=== PATIENT | male | born 1975 | race Caucasian/White ===

== ENCOUNTER 2017-02-15 17:24 | Inpatient (IN) | payer OTHER ==
[2017-02-15 18:29] LABS: BASO # 0.2 K/uL (0.0-0.2); BASO % 1.1 % (0.0-2.0); EOS # 0.2 K/uL (0.0-0.7); EOS % 1.6 % (0.0-4.0); HEMOGLOBIN 13.2 g/dL (12.0-18.0); LYMPH # 1.8 K/uL (1.0-4.3); LYMPH % 13.6 % (20.0-40.0); MEAN CELL VOLUME 86.5 fL (80.0-94.0); MEAN CORPUSCULAR HEMOGLOBIN 27.7 pg (27.0-31.0); MEAN PLATELET VOLUME 8.1 fL (7.2-11.7); MONO # 0.9 K/uL (0.0-0.8); MONO % 6.6 % (0.0-10.0); NEUT # 10.3 K/uL (1.8-7.0); NEUT % 77.1 % (50.0-75.0); RBC 4.78 Mil/uL (4.40-5.90); RED CELL DISTRIBUTION WIDTH 14.5 % (11.5-14.5)
[2017-02-15 18:33] LABS: WHITE BLOOD COUNT 13.4 K/uL (4.8-10.8)
[2017-02-15 18:38] LABS: PROTHROMBIN TIME 10.6 SECONDS (9.7-12.2)
--- NOTE | 2017-02-15 18:38 | RAD ---
PROCEDURE: CHEST RADIOGRAPH, 1 VIEW HISTORY: SOB COMPARISON: None available. FINDINGS: LUNGS: Bibasilar ill-defined opacities. PLEURA: Small bilateral pleural effusion. CARDIOVASCULAR: Grossly normal heart size. Congestive change noted. OSSEOUS STRUCTURES: No significant abnormalities. VISUALIZED UPPER ABDOMEN: Normal. OTHER FINDINGS: None. IMPRESSION: Bibasilar opacities with small pleural effusions and congestive change. Possible pulmonary edema/congestive heart failure.
[2017-02-15 18:48] LABS: ALBUMIN 2.9 g/dL (3.5-5.0)
[2017-02-15 18:51] LABS: ALB/GLOB RATIO 0.7 (1.0-2.1); CALCIUM 7.8 mg/dl (8.6-10.4)
[2017-02-15 19:39] LABS: TROPONIN I 0.424 ng/mL (0.00-0.120)
--- NOTE | 2017-02-15 20:56 | C.PDOC ---
Time Seen by Provider: 02/15/17 17:58 Chief Complaint (Nursing): Shortness Of Breath History Per: Patient Onset/Duration Of Symptoms: Days (about 2 weeks) Current Symptoms Are (Timing): Still Present Exacerbating Factor(s): Exertion, Laying Flat Severity: Moderate Associated Symptoms: Ankle/Leg Swelling Additional History Per: Prior Records Past Medical History Reviewed: Historical Data, Nursing Documentation, Vital Signs Vital Signs: Last Vital Signs Temp 98.9 F 02/15/17 17:35 Pulse 87 02/15/17 19:32 Resp 18 02/15/17 19:32 BP 138/88 02/15/17 19:32 Pulse Ox 97 02/15/17 19:32 - Medical History PMH: Diabetes, HTN Family History: States: Unknown Family Hx - Social History Hx Tobacco Use: Yes Hx Alcohol Use: No Hx Substance Use: No - Immunization History Hx Tetanus Toxoid Vaccination: No Hx Influenza Vaccination: No Hx Pneumococcal Vaccination: No Review Of Systems Except As Marked, All Systems Reviewed And Found Negative. Constitutional: Negative for: Fever Cardiovascular: Positive for: Orthopnea, Edema. Negative for: Chest Pain Respiratory: Positive for: Shortness of Breath, SOB with Excertion. Negative for: Hemoptysis Gastrointestinal: Negative for: Vomiting, Abdominal Pain Musculoskeletal: Negative for: Neck Pain Neurological: Negative for: Weakness, Numbness, Seizures, Altered Mental Status Physical Exam - Physical Exam Appears: No Acute Distress, Chronically Ill Skin: Normal Color, Warm, Dry Head: Atraumatic, Normacephalic Eye(s): bilateral: PERRL, EOMI Neck: Normal ROM, Supple Cardiovascular: Rhythm Regular Respiratory: No Accessory Muscle Use, Rales Gastrointestinal/Abdominal: Soft, No Tenderness Back: No CVA Tenderness Extremity: Normal ROM, Pedal Edema Neurological/Psych: Oriented x3, Normal Motor, Normal Sensation ED Course And Treatment - Laboratory Results Result Diagrams: 02/15/17 18:21 02/15/17 18:21 Lab Interpretation: Abnormal Interpretation Of Abnormal: Renal failure. Elevated BNP. Positive troponin. ECG: Interpreted By Me, Viewed By Me ECG Rhythm: Sinus Rhythm, Nonspecific Changes ECG Interpretation: Abnormal Interpretation Of ECG: Q waves in [place]-septal leads. Rate From EC O2 Sat by Pulse Oximetry: 97 Pulse Ox Interpretation: Normal - Radiology CXR: Viewed By Me, Read By Radiologist CXR Interpretation: Yes: Other (CHF) - Physician Consult Information Physician Contacted: Sharon Byrnes (Cardio) Outcome Of Conversation: He states pt can be admitted on telemetry floor and he will consult. Progress - Interventions Interventions:: Observation, Oxygen - Medications Administered Oral: Aspirin Intravenous: Diuretic - Data Reviewed Data Reviewed: Lab, Diagnostic imaging, EKG, Old records - Patient Status Patient status: Partially improved - Critical Care Citical Care: Excluding Proc Time Critical Care Time: 45 minutes - Continuity of Care Discussed patient case with:: Patient, ED Nurse, On-call PMD-pt unassigned Discussed pt. case with makeup sales consultant/specialty: Cardiology - Patient Plan Patient Plan: Admission, Telemetry Disposition Discussed With Dr.: Molina Bronson Comment: He accepted pt on hospitalist service. Doctor Will See Patient In The: Hospital Counseled Patient/Family Regarding: Studies Performed, Diagnosis - Disposition Disposition: HOSPITALIZED Disposition Time: 20:57 Condition: SERIOUS - Clinical Impression Clinical Impression: New onset of congestive heart failure, Worsening renal function
[2017-02-15] MEDS ORDERED: Potassium Chloride 20 mEq ER Tab PO STA (22:18)
--- NOTE | 2017-02-15 22:30 | CP.PCM.HP ---
<Abbey Joyce - Last Filed: 02/16/17 06:58> History of Present Illness - History of Present Illness History of Present Illness: CC - "Shortness of breath" HPI - 41 year old male with a past medical history of DM and HTN presented with shortness of breath for 2 weeks. He stated that he gets very short of breath with exertion. He also has shortness of breath when he sleeps which wakes him up and night and then he begins to cough. It is difficult for him to lie flat without being SOB. He states that he has also noticed that his legs have been swollen for the last month. He denied urinary retention or hematuria. he denied urinary complaints. He denied f/c, headache, N/V, chest pain, abd pain, diarrhea /constipation. Denies recent travel or sick contacts. PMHx - DM, HTN Meds - amlodipine 5mg PO daily, Lisinopril/HCTZ 20/25 mg PO daily, Levemir 25 U SC HS, Novolog 20 U SC TID Allergies - NKDA Fam Hx - mother has diabetes Surg - denies Social - social alcohol, smokes 6-10 cigarettes a day for many years stopped 1 year ago, denied drug use. 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 absent: Chest Pain, Chest Pain at Rest, Palpitations , Syncope - Respiratory Respiratory: Cough (nonproductive), Dyspnea, Dyspnea on Exertion - Gastrointestinal Gastrointestinal: Abdominal Pain. absent: Cramping, Diarrhea, Nausea, Vomiting - Genitourinary Genitourinary: absent: Change in Urinary Stream, Difficulty Urinating - Musculoskeletal Musculoskeletal: absent: Numbness, Tingling - Neurological Neurological: absent: Tingling, Weakness Past Patient History - Infectious Disease Hx of Infectious Diseases: None - Past Social History Smoking Status: Light Smoker < 10 Cigarettes Daily - CARDIAC Hx Hypertension: Yes - ENDOCRINE/METABOLIC Hx Diabetes Mellitus Type 2: Yes - PSYCHIATRIC Hx Substance Use: No - SURGICAL HISTORY Hx Surgeries: No - ANESTHESIA Hx Anesthesia: No Meds Allergies/Adverse Reactions: Allergies Allergy/AdvReac Type Severity Reaction Status Date / Time No Known Allergies Allergy Verified 01/08/16 10:50 Physical Exam - Constitutional Appears: Non-toxic, No Acute Distress - Head Exam Head Exam: ATRAUMATIC, NORMAL INSPECTION - Eye Exam Eye Exam: EOMI, Normal appearance, PERRL Pupil Exam: NORMAL ACCOMODATION - ENT Exam ENT Exam: Mucous Membranes Dry - Respiratory Exam Respiratory Exam: Rales. absent: Accessory Muscle Use, Clear to Auscultation Bilateral, Respiratory Distress, NORMAL BREATHING PATTERN - Cardiovascular Exam Cardiovascular Exam: REGULAR RHYTHM, +S1, +S2 - GI/Abdominal Exam GI & Abdominal Exam: Normal Bowel Sounds, Soft. absent: Distended, Firm, Guarding, Tenderness - Extremities Exam Extremities exam: Positive for: pedal edema. Negative for: calf tenderness Additional comments: 2+ edema legs bilaterally - Back Exam Back exam: NORMAL INSPECTION. absent: CVA tenderness (L), CVA tenderness (R), paraspinal tenderness - Neurological Exam Neurological exam: Alert, Normal Gait, Oriented x3 - Psychiatric Exam Psychiatric exam: Normal Affect, Normal Mood - Skin Skin Exam: Dry, Intact, Normal Color, Warm Results - Vital Signs Recent Vital Signs: Last Vital Signs Temp 98.2 F 02/15/17 21:34 Pulse 88 02/15/17 21:34 Resp 20 02/15/17 21:34 BP 138/88 02/15/17 19:32 Pulse Ox 98 02/15/17 21:34 - Labs Result Diagrams: 02/15/17 18:21 02/15/17 18:21 Assessment & Plan - Assessment and Plan (Free Text) Assessment: Pulmonary edema Lasix 40 mg IV Q12 O2 via NC Xray - venous congestion cardiomegaly Dsypnea Likely CHF (new onset) f/u Echo Aspirin 81 mg PO daily Metoprolol 25 mg PO daily Imdur 30mg PO daily Doxazosin 4mg PO daily Lasix 20mg IVP Q12 consider statin use Avoid BERENICE/ARB dur to MICAELA for now Dr. Byrnes, cardiology consulted, help appreciated daily weights/monitor ins/outs EKG - Q waves [place]-septal leads Trop #1 0.4240, Trop #2 0.4220 BNP [id number] f/u am labs Acute Kidney Injury BUN/CR 36/5.2 (cr was 1.7 1 year ago) f/u renal US f/u urine lytes Dr. Lincoln, nephrology consulted, help appreciated DM Lantus 25 U SC HS Novolin 8 U SC ACTID ISS Acuuchecks f/u HbA1c Hypokalemia K 3.5 f/u Mg Prophylactic Measures Heparin 5,000 U SC Q8 No SCDS due to leg edema Protonix 40mg PO daily <[email or web address] P - Last Filed: 02/19/17 23:02> Results - Vital Signs Recent Vital Signs: Last Vital Signs Temp 97.6 F 02/19/17 08:37 Pulse 93 H 02/19/17 08:37 Resp 20 02/19/17 08:37 BP 151/94 H 02/19/17 09:53 Pulse Ox 94 L 02/19/17 08:37 - Labs Result Diagrams: 02/19/17 07:21 02/19/17 07:21 Labs: Laboratory Results - last 24 hr 02/19/17 02/19/17 02/19/17 06:05 07:21 07:21 WBC 7.4 RBC 4.28 L Hgb 12.0 Hct 37.3 MCV 87.0 MCH 28.0 MCHC 32.2 L RDW 15.1 H Plt Count 259 MPV 8.2 Neut % (Auto) 63.8 Lymph % (Auto) 24.1 [place] % (Auto) 8.4 Eos % (Auto) 2.7 Baso % (Auto) 1.0 Neut # 4.7 Lymph # 1.8 [place] # 0.6 Eos # 0.2 Baso # 0.1 PT INR APTT Sodium 136 Potassium 3.8 Chloride 106 Carbon Dioxide 21 L Anion Gap 13 BUN 37 H Creatinine 5.9 H Est GFR ( Amer) 13 Est GFR (Non-Af Amer) 11 POC Glucose (mg/dL) 155 H Random Glucose 142 H Calcium 7.8 L Phosphorus 5.7 H Magnesium 2.2 Total Bilirubin 0.3 AST 20 ALT 17 L Alkaline Phosphatase 88 Total Protein 6.0 L Albumin 2.4 L Globulin 3.6 Albumin/Globulin Ratio 0.7 L 02/19/17 02/19/17 02/19/17 07:21 11:47 16:24 WBC RBC Hgb Hct MCV MCH MCHC RDW Plt Count MPV Neut % (Auto) Lymph % (Auto) [place] % (Auto) Eos % (Auto) Baso % (Auto) Neut # Lymph # [place] # Eos # Baso # PT 10.4 INR 0.9 APTT 67 H Sodium Potassium Chloride Carbon Dioxide Anion Gap BUN Creatinine Est GFR ( Amer) Est GFR (Non-Af Amer) POC Glucose (mg/dL) 188 H 132 H Random Glucose Calcium Phosphorus Magnesium Total Bilirubin AST ALT Alkaline Phosphatase Total Protein Albumin Globulin Albumin/Globulin Ratio 02/19/17 21:15 WBC RBC Hgb Hct MCV MCH MCHC RDW Plt Count MPV Neut % (Auto) Lymph % (Auto) [place] % (Auto) Eos % (Auto) Baso % (Auto) Neut # Lymph # [place] # Eos # Baso # PT INR APTT Sodium Potassium Chloride Carbon Dioxide Anion Gap BUN Creatinine Est GFR ( Amer) Est GFR (Non-Af Amer) POC Glucose (mg/dL) 177 H Random Glucose Calcium Phosphorus Magnesium Total Bilirubin AST ALT Alkaline Phosphatase Total Protein Albumin Globulin Albumin/Globulin Ratio Attending/Attestation - Attestation I have personally seen and examined this patient.: Yes I have fully participated in the care of the patient.: Yes I have reviewed all pertinent clinical information: Yes
[2017-02-15] MEDS ORDERED: Metoprolol Succinate 25 mg XL Tab PO STA (23:10)
[2017-02-15] MEDS: (Lantus) Insulin Glargine, Recombinant SC SCH (23:11)
[2017-02-15] MEDS: (Novolin R) Insulin Human Regular 100 units/ml vial SC SCH (23:11)
[2017-02-15] MEDS ORDERED: Potassium Chloride 20 mEq ER Tab PO ONE (23:18)
[2017-02-16 00:51] LABS: CK-MB 3.85 ng/mL (0.0-3.38)
[2017-02-16] MEDS: (Novolin R) Insulin Human Regular 100 units/ml vial SC SCH ×7 (07:19→21:32)
[2017-02-16 07:23] LABS: BASO # 0.2 K/uL (0.0-0.2); BASO % 1.9 % (0.0-2.0); EOS # 0.3 K/uL (0.0-0.7); EOS % 3.4 % (0.0-4.0); LYMPH # 2.6 K/uL (1.0-4.3); LYMPH % 31.4 % (20.0-40.0); MEAN CELL VOLUME 87.1 fL (80.0-94.0); MEAN CORPUSCULAR HEMOGLOBIN 27.9 pg (27.0-31.0); MEAN CORPUSCULAR HGB CONC 32.1 g/dL (33.0-37.0); MEAN PLATELET VOLUME 8.1 fL (7.2-11.7); MONO # 0.7 K/uL (0.0-0.8); MONO % 8.2 % (0.0-10.0); NEUT # 4.5 K/uL (1.8-7.0); NEUT % 55.1 % (50.0-75.0); RBC 4.3 Mil/uL (4.40-5.90); RED CELL DISTRIBUTION WIDTH 14.7 % (11.5-14.5); WHITE BLOOD COUNT 8.2 K/uL (4.8-10.8)
[2017-02-16 07:40] LABS: ALBUMIN 2.3 g/dL (3.5-5.0)
[2017-02-16 07:43] LABS: ALB/GLOB RATIO 0.7 (1.0-2.1)
[2017-02-16 07:44] LABS: CALCIUM 8.1 mg/dl (8.6-10.4); MAGNESIUM 2.3 mg/dL (1.6-2.3)
[2017-02-16 07:52] LABS: CK-MB 2.87 ng/mL (0.0-3.38)
[2017-02-16] MEDS ORDERED: Pantoprazole 40 mg EC Tab PO SCH (10:00)
--- NOTE | 2017-02-16 10:02 | CP.PCM.CON ---
<Arturo Maloney - Last Filed: 02/16/17 09:52> History of Present Illness - History of Present Illness History of Present Illness: Consult note for Dr. Byrnes Reason for Consult: New onset CHF, Pulmonary edema 41 y/o M with PMH of HTN and DM presents to the ED initially on 02/15/17 for shortness of breath for 2 weeks. Pt states he gradually became short of breath over the period of 1 month, but it became very noticeable 2 weeks ago. Pt states it is worse with exertion and while laying flat. Pt does note coughing, mainly at night. In addition to having shortness of breath, he notes he has had increased swelling of his legs over the past month. Pt states he has never had any symptoms like these before. Currently, pt denies CP, N/V/D, fevers, chills, dizziness, syncope. PMH: DM, HTN FMH: DM Social: Admits to occasional alcohol use. Former smoker, quit 7 months ago. Denies illicit drug use Meds: See MAR Allergies: NKDA Review of Systems - Constitutional Constitutional: Fatigue, Weight Gain. absent: Fever - EENT Eyes: absent: Blurred Vision, Change in Vision - Cardiovascular Cardiovascular: absent: Chest Pain, Irregular Heart Rhythm - Respiratory Respiratory: Cough, Dyspnea - Gastrointestinal Gastrointestinal: absent: Abdominal Pain, Diarrhea, Vomiting - Genitourinary Genitourinary: absent: Dysuria, Hematuria - Integumentary Integumentary: absent: New Lesions, Rash - Neurological Neurological: absent: Dizziness, Syncope, Tingling Past Patient History - Infectious Disease Hx of Infectious Diseases: None - Past Social History Smoking Status: Light Smoker < 10 Cigarettes Daily - CARDIAC Hx Hypertension: Yes - ENDOCRINE/METABOLIC Hx Diabetes Mellitus Type 2: Yes - MUSCULOSKELETAL/RHEUMATOLOGICAL Hx Falls: No - PSYCHIATRIC Hx Substance Use: No - SURGICAL HISTORY Hx Surgeries: No - ANESTHESIA Hx Anesthesia: No Meds Allergies/Adverse Reactions: Allergies Allergy/AdvReac Type Severity Reaction Status Date / Time No Known Allergies Allergy Verified 01/08/16 10:50 - Medications Medications: Current Medications Aspirin (Aspirin Chewable) 81 mg PO DAILY [facility] Doxazosin Mesylate (Cardura) 4 mg PO DAILY [facility] Famotidine (Pepcid) 20 mg PO DAILY [facility] Furosemide (Lasix) 40 mg IVP Q12H [facility] Last Admin: 02/16/17 07:08 Dose: 40 mg Heparin Sodium (Porcine) (Heparin) 5,000 units SC Q8 [facility] Last Admin: 02/16/17 07:07 Dose: Not Given Insulin Glargine (Lantus) 25 unit SC HS [facility] Last Admin: 02/15/17 23:11 Dose: Not Given Insulin Human Regular (Novolin R) 0 unit SC ACHS [facility] PRN Reason: Protocol Last Admin: 02/16/17 07:19 Dose: Not Given Insulin Human Regular (Novolin R) 8 unit SC ACTID [facility] Last Admin: 02/16/17 07:21 Dose: Not Given Isosorbide Mononitrate (Imdur) 30 mg PO DAILY [facility] Metoprolol Succinate (Toprol Xl) 25 mg PO DAILY [facility] Pneumococcal Polyvalent Vaccine (Pneumovax 23 Vaccine) 0.5 ml IM .ONCE ONE Stop: 02/17/17 10:01 Physical Exam - Constitutional Appears: Non-toxic, No Acute Distress - Head Exam Head Exam: ATRAUMATIC, NORMAL INSPECTION, NORMOCEPHALIC - ENT Exam ENT Exam: Mucous Membranes Moist - Respiratory Exam Respiratory Exam: Rales, NORMAL BREATHING PATTERN. absent: Rhonchi, Wheezes - Cardiovascular Exam Cardiovascular Exam: RRR, +S1, +S2 - GI/Abdominal Exam GI & Abdominal Exam: Normal Bowel Sounds, Soft. absent: Tenderness - Extremities Exam Extremities exam: Positive for: pedal edema (+1 b/l). Negative for: calf tenderness - Neurological Exam Neurological exam: Alert, Oriented x3 - Skin Skin Exam: Intact, Normal Color, Warm Results - Vital Signs Recent Vital Signs: Last Vital Signs Temp 97.6 F 02/16/17 07:40 Pulse 86 02/16/17 07:40 Resp 20 02/16/17 07:40 BP 168/89 H 02/16/17 07:40 Pulse Ox 94 L 02/16/17 07:40 - Labs Result Diagrams: 02/16/17 07:09 02/16/17 07:09 Labs: Laboratory Results - last 24 hr 02/15/17 02/16/17 02/16/17 23:07 00:11 06:50 WBC RBC Hgb Hct MCV MCH MCHC RDW Plt Count MPV Neut % (Auto) Lymph % (Auto) [place] % (Auto) Eos % (Auto) Baso % (Auto) Neut # Lymph # [place] # Eos # Baso # Sodium Potassium Chloride Carbon Dioxide Anion Gap BUN Creatinine Est GFR ( Amer) Est GFR (Non-Af Amer) POC Glucose (mg/dL) 99 130 H Random Glucose Calcium Phosphorus Magnesium Total Bilirubin AST ALT Alkaline Phosphatase Total Creatine Kinase 121 CK-MB (Mass) 3.85 H Troponin I, Quant 0.4220 H* Total Protein Albumin Globulin Albumin/Globulin Ratio 02/16/17 02/16/17 07:09 07:09 WBC 8.2 RBC 4.30 L Hgb 12.0 Hct 37.4 MCV 87.1 MCH 27.9 MCHC 32.1 L RDW 14.7 H Plt Count 292 MPV 8.1 Neut % (Auto) 55.1 Lymph % (Auto) 31.4 [place] % (Auto) 8.2 Eos % (Auto) 3.4 Baso % (Auto) 1.9 Neut # 4.5 Lymph # 2.6 [place] # 0.7 Eos # 0.3 Baso # 0.2 Sodium 138 Potassium 3.7 Chloride 111 H Carbon Dioxide 21 L Anion Gap 10 BUN 34 H Creatinine 5.4 H Est GFR ( Amer) 14 Est GFR (Non-Af Amer) 12 POC Glucose (mg/dL) Random Glucose 139 H Calcium 8.1 L Phosphorus 5.8 H Magnesium 2.3 Total Bilirubin 0.5 AST 12 L D ALT 9 L D Alkaline Phosphatase 81 Total Creatine Kinase 96 CK-MB (Mass) 2.87 Troponin I, Quant 0.3050 H* Total Protein 5.8 L Albumin 2.3 L D Globulin 3.5 Albumin/Globulin Ratio 0.7 L Assessment & Plan (1) NSTEMI (non-ST elevated myocardial infarction) Assessment and Plan: Troponins elevated x3, but downtrending New EKG changes with Q waves in lateral leads, possible old [place] Will start Heparin drip and plavix Pt will likely need cardiac catheterization Awaiting echocardiogram Status: Acute <Sharon Byrnes - Last Filed: 02/17/17 07:53> Meds - Medications Medications: Current Medications Aspirin (Aspirin Chewable) 81 mg PO DAILY [facility] Last Admin: 02/16/17 09:30 Dose: 81 mg Doxazosin Mesylate (Cardura) 4 mg PO DAILY [facility] Last Admin: 02/16/17 10:49 Dose: 4 mg Famotidine (Pepcid) 20 mg PO DAILY [facility] Last Admin: 02/16/17 10:49 Dose: 20 mg Furosemide (Lasix) 40 mg IVP Q12H [facility] Last Admin: 02/17/17 05:20 Dose: 40 mg Hydralazine HCl (Apresoline) 10 mg IVP Q6H PRN PRN Reason: Systolic Blood Pressure Heparin Sodium/Sodium Chloride (Heparin 45726 Units/250ml 1/2 Normal Saline) 25 ,000 units in 250 mls @ 11.975 mls/hr IV .[id number] PRN; Protocol; 12 UNITS/KG/HR PRN Reason: PROTOCOL Last Admin: 02/16/17 12:45 Dose: 12 units/kg/hr, 11.975 mls/hr Insulin Glargine (Lantus) 25 unit SC HS [facility] Last Admin: 02/16/17 22:06 Dose: 25 u Insulin Human Regular (Novolin R) 0 unit SC ACHS [facility] PRN Reason: Protocol Last Admin: 02/17/17 07:38 Dose: Not Given Insulin Human Regular (Novolin R) 8 unit SC ACTID [facility] Last Admin: 02/17/17 07:39 Dose: Not Given Isosorbide Mononitrate (Imdur) 30 mg PO DAILY [facility] Last Admin: 02/16/17 10:49 Dose: 30 mg Metoprolol Succinate (Toprol Xl) 25 mg PO DAILY [facility] Last Admin: 02/16/17 10:49 Dose: 25 mg Pneumococcal Polyvalent Vaccine (Pneumovax 23 Vaccine) 0.5 ml IM .ONCE ONE Stop: 02/17/17 10:01 Results - Vital Signs Recent Vital Signs: Last Vital Signs Temp 98 F 02/17/17 04:55 Pulse 84 02/17/17 04:55 Resp 20 02/17/17 04:55 BP 170/89 H 02/17/17 06:00 Pulse Ox 98 02/16/17 23:45 - Labs Result Diagrams: 02/16/17 07:09 02/16/17 07:09 Labs: Laboratory Results - last 24 hr 02/16/17 02/16/17 02/16/17 07:09 12:19 13:08 APTT POC Glucose (mg/dL) 241 H CK-MB (Mass) 2.87 Troponin I 0.2170 H* Troponin I, Quant 0.3050 H* Urine Color Urine Clarity Urine pH Ur Specific [place] Urine Protein Urine Glucose (UA) Urine Ketones Urine Blood Urine Nitrate Urine Bilirubin Urine Urobilinogen Ur Leukocyte Esterase Urine WBC (Auto) Urine RBC (Auto) Ur Squamous Epith Cells Urine Osmolality Ur Random Sodium 02/16/17 02/16/17 02/16/17 16:27 19:37 19:37 APTT POC Glucose (mg/dL) 141 H CK-MB (Mass) Troponin I Troponin I, Quant Urine Color Straw Urine Clarity Clear Urine pH 5.0 Ur Specific [place] 1.009 Urine Protein 2+ H Urine Glucose (UA) 3+ H Urine Ketones Negative Urine Blood Negative Urine Nitrate Negative Urine Bilirubin Negative Urine Urobilinogen Normal Ur Leukocyte Esterase Neg Urine WBC (Auto) 2 Urine RBC (Auto) 1 Ur Squamous Epith Cells < 1 Urine Osmolality 330 Ur Random Sodium 92 02/16/17 02/16/17 20:59 21:26 APTT 61 H D POC Glucose (mg/dL) 107 CK-MB (Mass) Troponin I Troponin I, Quant Urine Color Urine Clarity Urine pH Ur Specific [place] Urine Protein Urine Glucose (UA) Urine Ketones Urine Blood Urine Nitrate Urine Bilirubin Urine Urobilinogen Ur Leukocyte Esterase Urine WBC (Auto) Urine RBC (Auto) Ur Squamous Epith Cells Urine Osmolality Ur Random Sodium Attending/Attestation - Attestation I have personally seen and examined this patient.: Yes I have fully participated in the care of the patient.: Yes I have reviewed all pertinent clinical information: Yes Notes (Text): 02/17/17 07:52 Pt starting dialysis d/w renal will need cardiac catheterization will time cases and d/w interventional cardiology
[2017-02-16] MEDS: Metoprolol Succinate 25 mg XL Tab PO SCH (10:49)
[2017-02-16] MEDS: Heparin25000 units/250ml 1/2NS 25,000 UNITS/250 ML BAG IV PRN (12:45)
--- NOTE | 2017-02-16 13:38 | CARD ---
APPROVED REPORT EKG Measurement Heart [id number] <Conclusion> Normal sinus rhythm Cannot rule out Inferior infarct, age undetermined Anterolateral infarct, age undetermined Prolonged QT Abnormal ECG
--- NOTE | 2017-02-16 13:38 | CARD ---
APPROVED REPORT EKG Measurement Heart [id number] <Conclusion> Normal sinus rhythm Possible Left atrial enlargement Anterolateral infarct, age undetermined Prolonged QT Abnormal ECG
--- NOTE | 2017-02-16 14:03 | US ---
PROCEDURE: Ultrasound of the Kidneys HISTORY: MICAELA COMPARISON: None available. TECHNIQUE: Sonogram of the kidneys. FINDINGS: RIGHT KIDNEY: Measures: 11.1 cm. Normal in size, contour and echogenicity. No stone, solid mass lesion or hydronephrosis visualized. LEFT KIDNEY: Measures: 10.0 cm. Normal in size, contour and echogenicity. No stone, solid mass lesion or hydronephrosis visualized. OTHER FINDINGS: None. IMPRESSION: Unremarkable renal sonogram.
--- NOTE | 2017-02-16 16:16 | CP.PCM.CON ---
History of Present Illness - History of Present Illness History of Present Illness: HPI - 41 year old male with a past medical history of DM and HTN presented with shortness of breath for 2 weeks. He stated that he gets very short of breath with exertion. He also has shortness of breath when he sleeps which wakes him up and night and then he begins to cough. It is difficult for him to lie flat without being SOB. He states that he has also noticed that his legs have been swollen for the last month. He denied urinary retention or hematuria. he denied urinary complaints. He denied f/c, headache, N/V, chest pain, abd pain, diarrhea /constipation. Denies recent travel or sick contacts. PMHx - DM, HTN Meds - amlodipine 5mg PO daily, Lisinopril/HCTZ 20/25 mg PO daily, Levemir 25 U SC HS, Novolog 20 U SC TID Allergies - NKDA Fam Hx - mother has diabetes Surg - denies Social - social alcohol, smokes 6-10 cigarettes a day for many years stopped 1 year ago, denied drug use. 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 [employer] PMD - Jeff - does not follow up often No prior h/o CKD No known diabetic retinopathy Review of Systems - Constitutional Constitutional: Weight Gain, Weakness - Cardiovascular Cardiovascular: Dyspnea on Exertion, Pedal Edema - Respiratory Respiratory: Cough, Dyspnea on Exertion - Gastrointestinal Gastrointestinal: Nausea - Genitourinary Genitourinary: Dysuria - Musculoskeletal Musculoskeletal: Muscle Weakness, Myalgias - Neurological Neurological: Weakness Past Patient History - Infectious Disease Hx of Infectious Diseases: None - Past Social History Smoking Status: Light Smoker < 10 Cigarettes Daily Chewing Tobacco Use: No Cigar Use: No Alcohol: Occasional - CARDIAC Hx Hypertension: Yes - ENDOCRINE/METABOLIC Hx Diabetes Mellitus Type 2: Yes - MUSCULOSKELETAL/RHEUMATOLOGICAL Hx Falls: No - PSYCHIATRIC Hx Substance Use: No - SURGICAL HISTORY Hx Surgeries: No - ANESTHESIA Hx Anesthesia: No Meds Allergies/Adverse Reactions: Allergies Allergy/AdvReac Type Severity Reaction Status Date / Time No Known Allergies Allergy Verified 01/08/16 10:50 - Medications Medications: Current Medications Aspirin (Aspirin Chewable) 81 mg PO DAILY [facility] Last Admin: 02/16/17 09:30 Dose: 81 mg Doxazosin Mesylate (Cardura) 4 mg PO DAILY [facility] Last Admin: 02/16/17 10:49 Dose: 4 mg Famotidine (Pepcid) 20 mg PO DAILY [facility] Last Admin: 02/16/17 10:49 Dose: 20 mg Furosemide (Lasix) 40 mg IVP Q12H [facility] Last Admin: 02/16/17 07:08 Dose: 40 mg Hydralazine HCl (Apresoline) 10 mg IVP Q6H PRN PRN Reason: Systolic Blood Pressure Heparin Sodium/Sodium Chloride (Heparin 43460 Units/250ml 1/2 Normal Saline) 25 ,000 units in 250 mls @ 11.975 mls/hr IV .[id number] PRN; Protocol; 12 UNITS/KG/HR PRN Reason: PROTOCOL Last Admin: 02/16/17 12:45 Dose: 12 units/kg/hr, 11.975 mls/hr Insulin Glargine (Lantus) 25 unit SC HS [facility] Last Admin: 02/15/17 23:11 Dose: Not Given Insulin Human Regular (Novolin R) 0 unit SC ACHS [facility] PRN Reason: Protocol Last Admin: 02/16/17 12:26 Dose: 3 unit Insulin Human Regular (Novolin R) 8 unit SC ACTID [facility] Last Admin: 02/16/17 12:26 Dose: 8 unit Isosorbide Mononitrate (Imdur) 30 mg PO DAILY [facility] Last Admin: 02/16/17 10:49 Dose: 30 mg Metoprolol Succinate (Toprol Xl) 25 mg PO DAILY [facility] Last Admin: 02/16/17 10:49 Dose: 25 mg Pneumococcal Polyvalent Vaccine (Pneumovax 23 Vaccine) 0.5 ml IM .ONCE ONE Stop: 02/17/17 10:01 Physical Exam - Constitutional Appears: No Acute Distress, Chronically Ill - Head Exam Head Exam: ATRAUMATIC, NORMAL INSPECTION - Eye Exam Eye Exam: EOMI, Normal appearance - Neck Exam Neck exam: Positive for: Normal Inspection. Negative for: Tenderness - Respiratory Exam Respiratory Exam: Rales, NORMAL BREATHING PATTERN - Cardiovascular Exam Cardiovascular Exam: REGULAR RHYTHM, +S1 - GI/Abdominal Exam GI & Abdominal Exam: Soft. absent: Tenderness - Extremities Exam Extremities exam: Positive for: normal inspection, pedal edema - Neurological Exam Neurological exam: Alert, CN II-XII Intact - Skin Skin Exam: Dry, Warm Results - Vital Signs Recent Vital Signs: Last Vital Signs Temp 97.6 F 02/16/17 07:40 Pulse 79 02/16/17 13:52 Resp 20 02/16/17 07:40 BP 168/89 H 02/16/17 07:40 Pulse Ox 94 L 02/16/17 07:40 - Labs Result Diagrams: 02/16/17 07:09 02/16/17 07:09 Labs: Laboratory Results - last 24 hr 02/15/17 02/16/17 02/16/17 23:07 00:11 06:50 WBC RBC Hgb Hct MCV MCH MCHC RDW Plt Count MPV Neut % (Auto) Lymph % (Auto) Maury % (Auto) Eos % (Auto) Baso % (Auto) Neut # Lymph # Maury # Eos # Baso # Sodium Potassium Chloride Carbon Dioxide Anion Gap BUN Creatinine Est GFR ( Amer) Est GFR (Non-Af Amer) POC Glucose (mg/dL) 99 130 H Random Glucose Calcium Phosphorus Magnesium Total Bilirubin AST ALT Alkaline Phosphatase Total Creatine Kinase 121 CK-MB (Mass) 3.85 H Troponin I Troponin I, Quant 0.4220 H* Total Protein Albumin Globulin Albumin/Globulin Ratio 02/16/17 02/16/17 02/16/17 07:09 07:09 12:19 WBC 8.2 RBC 4.30 L Hgb 12.0 Hct 37.4 MCV 87.1 MCH 27.9 MCHC 32.1 L RDW 14.7 H Plt Count 292 MPV 8.1 Neut % (Auto) 55.1 Lymph % (Auto) 31.4 Maury % (Auto) 8.2 Eos % (Auto) 3.4 Baso % (Auto) 1.9 Neut # 4.5 Lymph # 2.6 Maury # 0.7 Eos # 0.3 Baso # 0.2 Sodium 138 Potassium 3.7 Chloride 111 H Carbon Dioxide 21 L Anion Gap 10 BUN 34 H Creatinine 5.4 H Est GFR ( Amer) 14 Est GFR (Non-Af Amer) 12 POC Glucose (mg/dL) 241 H Random Glucose 139 H Calcium 8.1 L Phosphorus 5.8 H Magnesium 2.3 Total Bilirubin 0.5 AST 12 L D ALT 9 L D Alkaline Phosphatase 81 Total Creatine Kinase 96 CK-MB (Mass) 2.87 Troponin I Troponin I, Quant 0.3050 H* Total Protein 5.8 L Albumin 2.3 L D Globulin 3.5 Albumin/Globulin Ratio 0.7 L 02/16/17 13:08 WBC RBC Hgb Hct MCV MCH MCHC RDW Plt Count MPV Neut % (Auto) Lymph % (Auto) Maury % (Auto) Eos % (Auto) Baso % (Auto) Neut # Lymph # Maury # Eos # Baso # Sodium Potassium Chloride Carbon Dioxide Anion Gap BUN Creatinine Est GFR ( Amer) Est GFR (Non-Af Amer) POC Glucose (mg/dL) Random Glucose Calcium Phosphorus Magnesium Total Bilirubin AST ALT Alkaline Phosphatase Total Creatine Kinase CK-MB (Mass) Troponin I 0.2170 H* Troponin I, Quant Total Protein Albumin Globulin Albumin/Globulin Ratio Assessment & Plan (1) New onset of congestive heart failure Status: Acute (2) MICAELA (acute kidney injury) Status: Acute (3) Type 2 diabetes mellitus with diabetic nephropathy Status: Acute (4) CKD (chronic kidney disease) stage 5, GFR less than 15 ml/min Status: Acute (5) NSTEMI (non-ST elevated myocardial infarction) Status: Acute - Assessment and Plan (Free Text) Plan: protein excretion rate IV lasix serial chemistries check pth, phos stop BERENICE I Might need COMMISSIONS COORDINATOR if not better
--- NOTE | 2017-02-16 18:51 | CP.PCM.PN ---
<Amy French - Last Filed: 02/16/17 20:37> Subjective - Date & Time of Evaluation Date of Evaluation: 02/16/17 Time of Evaluation: 09:00 - Subjective Subjective: Medicine Note (PGY 1): Dr. Bahena's service Patient was seen and examined at bedside in the AM. Patient states his shortness has improved since he arrived at the hospital. Patient states his legs are swollen. Patient denies chest pain, nausea, vomiting, diarrhea or constipation. Objective - Vital Signs/Intake and Output Vital Signs (last 24 hours): Temp Pulse Resp BP Pulse Ox 98.0 F 80 20 141/90 96 02/16/17 15:15 02/16/17 15:15 02/16/17 15:15 02/16/17 17:23 02/16/17 15:15 Intake and Output: 02/16/17 02/16/17 06:59 18:59 Intake Total 500 Balance 500 - Medications Medications: Current Medications Aspirin (Aspirin Chewable) 81 mg PO DAILY [facility] Last Admin: 02/16/17 09:30 Dose: 81 mg Doxazosin Mesylate (Cardura) 4 mg PO DAILY [facility] Last Admin: 02/16/17 10:49 Dose: 4 mg Famotidine (Pepcid) 20 mg PO DAILY [facility] Last Admin: 02/16/17 10:49 Dose: 20 mg Furosemide (Lasix) 40 mg IVP Q12H [facility] Last Admin: 02/16/17 17:23 Dose: 40 mg Hydralazine HCl (Apresoline) 10 mg IVP Q6H PRN PRN Reason: Systolic Blood Pressure Heparin Sodium/Sodium Chloride (Heparin 75495 Units/250ml 1/2 Normal Saline) 25 ,000 units in 250 mls @ 11.975 mls/hr IV .[id number] PRN; Protocol; 12 UNITS/KG/HR PRN Reason: PROTOCOL Last Admin: 02/16/17 12:45 Dose: 12 units/kg/hr, 11.975 mls/hr Insulin Glargine (Lantus) 25 unit SC HS [facility] Last Admin: 02/15/17 23:11 Dose: Not Given Insulin Human Regular (Novolin R) 0 unit SC ACHS [facility] PRN Reason: Protocol Last Admin: 02/16/17 17:24 Dose: Not Given Insulin Human Regular (Novolin R) 8 unit SC ACTID [facility] Last Admin: 02/16/17 17:24 Dose: 8 unit Isosorbide Mononitrate (Imdur) 30 mg PO DAILY [facility] Last Admin: 02/16/17 10:49 Dose: 30 mg Metoprolol Succinate (Toprol Xl) 25 mg PO DAILY [facility] Last Admin: 02/16/17 10:49 Dose: 25 mg Pneumococcal Polyvalent Vaccine (Pneumovax 23 Vaccine) 0.5 ml IM .ONCE ONE Stop: 02/17/17 10:01 - Labs Labs: 02/16/17 07:09 02/16/17 07:09 PT 10.6 SECONDS (9.7-12.2) 02/15/17 18:21 INR 1.0 02/15/17 18:21 APTT 41 SECONDS (21-34) H 02/15/17 18:21 - Constitutional Appears: No Acute Distress - Head Exam Head Exam: NORMAL INSPECTION - Eye Exam Eye Exam: Normal appearance - ENT Exam ENT Exam: Mucous Membranes Moist - Respiratory Exam Respiratory Exam: Clear to Ausculation Bilateral, NORMAL BREATHING PATTERN. absent: Chest Wall Tenderness - Cardiovascular Exam Cardiovascular Exam: REGULAR RHYTHM, +S1, +S2 - GI/Abdominal Exam GI & Abdominal Exam: Soft, Normal Bowel Sounds. absent: Guarding, Tenderness - Extremities Exam Extremities Exam: Pedal Edema (+2 pitting edema). absent: Tenderness - Neurological Exam Neurological Exam: Alert, Awake, Oriented x3 - Psychiatric Exam Psychiatric exam: Normal Mood - Skin Skin Exam: Warm Assessment and Plan - Assessment and Plan (Free Text) Plan: 41 year old male with a past medical history of DM and HTN presented to the ED with shortness of breath for 2 weeks. 1.) Congestive Heart Failure Exacerbation * Dr. Byrnes, cardiology consulted --> help appreciatedLasix 40 mg IV Q12 * O2 via NC * Xray - venous congestion cardiomegaly * f/u ECHO 02/15/17 * f/u venous duplex scan * f/u VQ Scan 2.) NSTEMI * Dr. Byrnes, cardiology consulted --> help appreciated * Possible Cardiac Catheterization * Heparin 25,000 units in 250 mls * Aspirin 81 mg PO daily * Metoprolol 25 mg PO daily * Imdur 30mg PO daily * Doxazosin 4mg PO daily * Hydralazine 10mg IVP Q6H * Lasix 20mg IVP Q12 * consider statin use * Avoid BERENICE/ARB dur to MICAELA for now * Daily weights/monitor ins/outs * EKG x2- T-wave inversion Anterior-Lateral leads (possibly an old AK) * Trop #1 0.4240, Trop #2 0.3050, Trop #3 0.2170 * BNP [id number] 3.) Acute Renal Insufficiency * r/o Interstitial Nephritis * BUN/CR 36/5.2 (cr was 1.7 1 year ago) * f/u renal US * f/u urine lytes * Dr. Lincoln, nephrology consulted ---> Help appreciated 4.) History of Diabetes * Lantus 25 U SC HS * Novolin 8 U SC ACTID * ISS * Acuuchecks * f/u HbA1c 5.) Hypokalemia * Monitor K and Mg 6.) Prophylactic Measures * Heparin 5,000 U SC Q8 stopped on 02/16/17 * No SCDS due to leg edema * Protonix 40mg PO daily <Marilyn Bahena V - Last Filed: 02/20/17 12:31> Objective - Vital Signs/Intake and Output Vital Signs (last 24 hours): Temp Pulse Resp BP Pulse Ox 97.5 F L 87 18 154/97 H 98 02/20/17 10:48 02/20/17 10:48 02/20/17 10:48 02/20/17 10:48 02/20/17 10:48 Intake and Output: 02/20/17 02/20/17 06:59 18:59 Intake Total 50 Output Total 350 Balance -300 - Medications Medications: Current Medications Aspirin (Aspirin Chewable) 81 mg PO DAILY [facility] Last Admin: 02/20/17 10:44 Dose: Not Given Calcium Acetate (Phoslo) 667 mg PO TIDCC [facility] Last Admin: 02/20/17 09:15 Dose: Not Given Doxazosin Mesylate (Cardura) 4 mg PO DAILY [facility] Last Admin: 02/20/17 10:53 Dose: 4 mg Famotidine (Pepcid) 20 mg PO DAILY [facility] Last Admin: 02/20/17 10:44 Dose: Not Given Fluticasone Propionate (Flonase) 1 spr NS DAILY [facility] Last Admin: 02/20/17 10:55 Dose: Not Given Furosemide (Lasix) 40 mg IVP Q12H [facility] Last Admin: 02/20/17 07:50 Dose: 40 mg Hydralazine HCl (Apresoline) 10 mg IVP Q6H PRN PRN Reason: Systolic Blood Pressure Last Admin: 02/17/17 09:53 Dose: 10 mg Hydralazine HCl (Apresoline) 50 mg PO Q6H [facility] Last Admin: 02/20/17 10:53 Dose: 50 mg Heparin Sodium/Sodium Chloride (Heparin 15678 Units/250ml 1/2 Normal Saline) 25 ,000 units in 250 mls @ 11.975 mls/hr IV .[id number] PRN; Protocol; 12 UNITS/KG/HR PRN Reason: PROTOCOL Last Admin: 02/19/17 09:38 Dose: 12 units/kg/hr, 11.975 mls/hr Insulin Glargine (Lantus) 25 unit SC [facility] Last Admin: 02/19/17 21:56 Dose: Not Given Insulin Human Regular (Novolin R) 0 unit SC ACHS [facility] PRN Reason: Protocol Last Admin: 02/20/17 08:00 Dose: Not Given Insulin Human Regular (Novolin R) 8 unit SC ACTID [facility] Last Admin: 02/20/17 08:00 Dose: Not Given Isosorbide Mononitrate (Imdur) 30 mg PO DAILY [facility] Last Admin: 02/20/17 10:07 Dose: 30 mg Metoprolol Tartrate (Lopressor) 50 mg PO BID [facility] Rosuvastatin Calcium (Crestor) 20 mg PO [facility] Last Admin: 02/19/17 21:55 Dose: 20 mg - Labs Labs: 02/20/17 07:47 02/20/17 07:47 PT 10.7 SECONDS (9.7-12.2) 02/20/17 07:47 INR 1.0 02/20/17 07:47 APTT 49 SECONDS (21-34) H D 02/20/17 07:47 Attending/Attestation - Attestation I have personally seen and examined this patient.: Yes I have fully participated in the care of the patient.: Yes I have reviewed all pertinent clinical information, including history, physical exam and plan: Yes Notes (Text): This is late computer entry for 02/16/17. Patient seen, examined, and case discussed with day-time rn international in the morning Patient reports he has been having shortness of breathe for 2 weeks, went to his primary the day before admission because the shortness of breathe became unbearable for him and who directed him to come to the hospital. Per view of EMR, patient has EKG changes from prior one that is available. Patient started on Heparin drip by cardiology given positive troponins and EKG changes Discussed with cardiology, patient will likely need a cardiac cath. Patient's Cr is significantly changed from 2016 (Cr: 1.7). Patient to complete renal US and nephrology to evaluate the patient in the afternoon. Discussed with nephrology, patient will likely need dialysis given patient will need a cardiac cath for silent AK Assessment/Plan 1.) Congestive Heart Failure Exacerbation * Dr. Byrnes, cardiology consulted --> help appreciated * On Lasix * O2 via NC * Xray - venous congestion cardiomegaly * f/u ECHO 02/15/17 * f/u venous duplex scan * f/u VQ Scan * Aspirin 81 mg PO daily * Metoprolol XL 25 mg PO daily * Imdur 30mg PO daily * Doxazosin 4mg PO daily * Hydralazine 10mg IVP Q6H SBP>160 * Monitor intake and output * Daily weights 2.) NSTEMI * Dr. Byrnes, cardiology consulted --> help appreciated * Possible Cardiac Catheterization * Heparin drip * Aspirin 81 mg PO daily * Metoprolol 25 mg PO daily * Imdur 30mg PO daily * Doxazosin 4mg PO daily * Hydralazine 10mg IVP Q6H * Lasix 20mg IVP Q12 * hold Statin given acute renal insufficiency * Avoid BERENICE/ARB dur to MICAELA for now * Daily weights/monitor ins/outs * EKG x2- T-wave inversion Anterior-Lateral leads (possibly an old AK) * Trop #1 0.4240, Trop #2 0.3050, Trop #3 0.2170 * BNP [id number] 3.) Acute Renal Insufficiency * r/o Interstitial Nephritis * BUN/CR 36/5.2 (cr was 1.7 1 year ago) * f/u renal US * f/u urine lytes * Dr. Lincoln, nephrology consulted ---> Help appreciated 4.) History of Diabetes * Lantus 25 U SC HS * Novolin 8 U SC ACTID * ISS * Acuuchecks * f/u HbA1c 5.) Hypokalemia * Monitor K and Mg 6.) Prophylactic Measures * on Heparin drip * No SCDS due to leg edema * Pepcid 20mg PO daily
[2017-02-16 19:55] LABS: OSMOLALITY,URINE 330 mosm/kg (300-1000); SQUAMOUS EPITHIAL < 1 /hpf (0-5); URINE BILIRUBIN NEGATIVE (NEGATIVE); URINE BLOOD NEGATIVE (NEGATIVE); URINE CLARITY Clear (Clear); URINE COLOR Straw (YELLOW); URINE GLUCOSE (UA) 3+ mg/dL (Normal); URINE LEUKOCYTE ESTERASE NEG Leu/uL (Negative); URINE NITRATE NEGATIVE (NEGATIVE); URINE PROTEIN 2+ mg/dL (NEGATIVE); URINE UROBILINOGEN NORMAL mg/dL (0.2-1.0)
[2017-02-16] MEDS: (Lantus) Insulin Glargine, Recombinant SC SCH (22:06)
[2017-02-17] MEDS: (Novolin R) Insulin Human Regular 100 units/ml vial SC SCH ×7 (07:38→22:07)
--- NOTE | 2017-02-17 07:43 | CP.PCM.PN ---
<Amy French - Last Filed: 02/17/17 16:45> Subjective - Date & Time of Evaluation Date of Evaluation: 02/17/17 Time of Evaluation: 07:00 - Subjective Subjective: Medicine Note (PGY 1): Dr. Bahena's service Patient was seen and examined at bedside in the AM. Patient states his shortness has improved. Patient states he can breathe better when his bed is inclined. Patient states his legs are swollen. Patient states his nose is congested. Patient denies chest pain, nausea, vomiting, fever, dysuria, diarrhea or constipation. Objective - Vital Signs/Intake and Output Vital Signs (last 24 hours): Temp Pulse Resp BP Pulse Ox 98 F 84 20 170/89 H 98 02/17/17 04:55 02/17/17 04:55 02/17/17 04:55 02/17/17 06:00 02/16/17 23:45 Intake and Output: 02/17/17 02/17/17 06:59 18:59 Output Total 800 Balance -800 - Medications Medications: Current Medications Aspirin (Aspirin Chewable) 81 mg PO DAILY [facility] Last Admin: 02/16/17 09:30 Dose: 81 mg Doxazosin Mesylate (Cardura) 4 mg PO DAILY [facility] Last Admin: 02/16/17 10:49 Dose: 4 mg Famotidine (Pepcid) 20 mg PO DAILY [facility] Last Admin: 02/16/17 10:49 Dose: 20 mg Furosemide (Lasix) 40 mg IVP Q12H [facility] Last Admin: 02/17/17 05:20 Dose: 40 mg Hydralazine HCl (Apresoline) 10 mg IVP Q6H PRN PRN Reason: Systolic Blood Pressure Heparin Sodium/Sodium Chloride (Heparin 40529 Units/250ml 1/2 Normal Saline) 25 ,000 units in 250 mls @ 11.975 mls/hr IV .[id number] PRN; Protocol; 12 UNITS/KG/HR PRN Reason: PROTOCOL Last Admin: 02/16/17 12:45 Dose: 12 units/kg/hr, 11.975 mls/hr Insulin Glargine (Lantus) 25 unit SC HS [facility] Last Admin: 02/16/17 22:06 Dose: 25 u Insulin Human Regular (Novolin R) 0 unit SC ACHS [facility] PRN Reason: Protocol Last Admin: 02/17/17 07:38 Dose: Not Given Insulin Human Regular (Novolin R) 8 unit SC ACTID [facility] Last Admin: 02/17/17 07:39 Dose: Not Given Isosorbide Mononitrate (Imdur) 30 mg PO DAILY [facility] Last Admin: 02/16/17 10:49 Dose: 30 mg Metoprolol Succinate (Toprol Xl) 25 mg PO DAILY [facility] Last Admin: 02/16/17 10:49 Dose: 25 mg Pneumococcal Polyvalent Vaccine (Pneumovax 23 Vaccine) 0.5 ml IM .ONCE ONE Stop: 02/17/17 10:01 - Labs Labs: 02/16/17 07:09 02/16/17 07:09 PT 10.6 SECONDS (9.7-12.2) 02/15/17 18:21 INR 1.0 02/15/17 18:21 APTT 61 SECONDS (21-34) H D 02/16/17 20:59 - Constitutional Appears: No Acute Distress - Head Exam Head Exam: NORMAL INSPECTION - Eye Exam Eye Exam: Normal appearance - ENT Exam ENT Exam: Mucous Membranes Moist - Respiratory Exam Respiratory Exam: Clear to Ausculation Bilateral, NORMAL BREATHING PATTERN. absent: Rales, Rhonchi, Wheezes, Stridor - Cardiovascular Exam Cardiovascular Exam: REGULAR RHYTHM, RRR, +S1, +S2. absent: JVD - GI/Abdominal Exam GI & Abdominal Exam: Soft, Normal Bowel Sounds. absent: Tenderness - Extremities Exam Extremities Exam: Pedal Edema (+2). absent: Calf Tenderness, Tenderness - Neurological Exam Neurological Exam: Alert, Awake, Oriented x3 - Psychiatric Exam Psychiatric exam: Normal Mood - Skin Skin Exam: Normal Color, Warm. absent: Rash Assessment and Plan - Assessment and Plan (Free Text) Assessment: 41 year old male with a past medical history of DM and HTN presented to the ED with shortness of breath for 2 weeks. Plan: 1.) Congestive Heart Failure Exacerbation * Dr. Byrnes, cardiology consulted --> help appreciatedLasix 40 mg IV Q12 * O2 via 2L of NC * Xray - venous congestion cardiomegaly * f/u ECHO 02/15/17 * f/u venous duplex scan * VQ Scan (02/17/17): Low probability ventilation perfusion scan for pulmonary embolism 2.) NSTEMI * Dr. Byrnes, cardiology consulted --> help appreciated * Possible Cardiac Catheterization 02/17/17 * Heparin 25,000 units in 250 mls * Aspirin 81 mg PO daily * Imdur 30mg PO daily * Doxazosin 4mg PO daily * Lasix 40mg IVP Q12 * consider statin use * Avoid BERENICE/ARB dur to MICAELA for now * Daily weights/monitor ins/outs * EKG x2- T-wave inversion Anterior-Lateral leads (possibly an old MO) * Trop #1 0.4240, Trop #2 0.3050, Trop #3 0.2170 * BNP [id number] 3.) Acute Renal Insufficiency * Possible dialysis Access 02/18/17 * Discussed with patient decrease in renal function and the possibility that he may need dialysis * Surgery Consulted, Dr. Rao ---> Help appreciated * BUN/Cr (02/17/17): 36/5.7; BUN/Cr (02/16/17):36/5.2 (cr was 1.7 1 year ago) * Monitor * Renal US (02/16/17): Unremarkable renal sonogram * f/u urine lytes * Dr. Lincoln, nephrology consulted ---> Help appreciated 4.) History of Hypertension * Currently uncontrolled * Hydralazine 25mg PO Q8H * Hydralazine 10mg IVP Q6H PRN if systolic blood pressure is above 160 * Metoprolol Tartrate 25 mg PO BID 5.) History of Diabetes * Lantus 25 U SC HS * Novolin 8 U SC ACTID * ISS * Acuuchecks * f/u HbA1c 6.) Hypokalemia * Resolved 7.) Prophylactic Measures * Heparin 5,000 U SC Q8 stopped on 02/16/17 * No SCDS due to leg edema * Protonix 40mg PO daily <Marilyn Bahena V - Last Filed: 02/20/17 12:40> Objective - Vital Signs/Intake and Output Vital Signs (last 24 hours): Temp Pulse Resp BP Pulse Ox 97.5 F L 87 18 154/97 H 98 02/20/17 10:48 02/20/17 10:48 02/20/17 10:48 02/20/17 10:48 02/20/17 10:48 Intake and Output: 02/20/17 02/20/17 06:59 18:59 Intake Total 50 Output Total 350 Balance -300 - Medications Medications: Current Medications Aspirin (Aspirin Chewable) 81 mg PO DAILY [facility] Last Admin: 02/20/17 10:44 Dose: Not Given Calcium Acetate (Phoslo) 667 mg PO TIDCC [facility] Last Admin: 02/20/17 09:15 Dose: Not Given Doxazosin Mesylate (Cardura) 4 mg PO DAILY [facility] Last Admin: 02/20/17 10:53 Dose: 4 mg Famotidine (Pepcid) 20 mg PO DAILY [facility] Last Admin: 02/20/17 10:44 Dose: Not Given Fluticasone Propionate (Flonase) 1 spr NS DAILY [facility] Last Admin: 02/20/17 10:55 Dose: Not Given Furosemide (Lasix) 40 mg IVP Q12H [facility] Last Admin: 02/20/17 07:50 Dose: 40 mg Hydralazine HCl (Apresoline) 10 mg IVP Q6H PRN PRN Reason: Systolic Blood Pressure Last Admin: 02/17/17 09:53 Dose: 10 mg Hydralazine HCl (Apresoline) 50 mg PO Q6H [facility] Last Admin: 02/20/17 10:53 Dose: 50 mg Heparin Sodium/Sodium Chloride (Heparin 15019 Units/250ml 1/2 Normal Saline) 25 ,000 units in 250 mls @ 11.975 mls/hr IV .[id number] PRN; Protocol; 12 UNITS/KG/HR PRN Reason: PROTOCOL Last Admin: 02/19/17 09:38 Dose: 12 units/kg/hr, 11.975 mls/hr Insulin Glargine (Lantus) 25 unit SC HS [facility] Last Admin: 02/19/17 21:56 Dose: Not Given Insulin Human Regular (Novolin R) 0 unit SC ACHS [facility] PRN Reason: Protocol Last Admin: 02/20/17 08:00 Dose: Not Given Insulin Human Regular (Novolin R) 8 unit SC ACTID [facility] Last Admin: 02/20/17 08:00 Dose: Not Given Isosorbide Mononitrate (Imdur) 30 mg PO DAILY [facility] Last Admin: 02/20/17 10:07 Dose: 30 mg Metoprolol Tartrate (Lopressor) 50 mg PO BID [facility] Rosuvastatin Calcium (Crestor) 20 mg PO HS [facility] Last Admin: 02/19/17 21:55 Dose: 20 mg - Labs Labs: 02/20/17 07:47 02/20/17 07:47 PT 10.7 SECONDS (9.7-12.2) 02/20/17 07:47 INR 1.0 02/20/17 07:47 APTT 49 SECONDS (21-34) H D 02/20/17 07:47 Attending/Attestation - Attestation I have personally seen and examined this patient.: Yes I have fully participated in the care of the patient.: Yes I have reviewed all pertinent clinical information, including history, physical exam and plan: Yes Notes (Text): This is late computer entry for 02/17/17. Patient seen, examined, and case discussed with day-time internet and e business project manager. Per view of EMR, patient has lost 6lbs since admission while on IV lasix. V/Q scan is negative for PE. Patient will likely need a cardiac catherization arrangements per cardiology. Patient will be setup for dialysis. Will consult vascular surgery for dialysis catheter placement. Discontinue Metropolol XL and started Metoprolol 25mg PO bid for better blood pressure control. Assessment/Plan 1.) Congestive Heart Failure Exacerbation * Dr. Byrnes, cardiology consulted --> help appreciated * On Lasix 40mg IV Q 12hurs * O2 via NC * Xray - venous congestion cardiomegaly * f/u ECHO 02/15/17 pending read; discussed with cardiology on consult; EF: 30-35 % * venous duplex scan pending read * VQ scan: low probability for PE * Aspirin 81 mg PO daily * Metoprolol 25 mg PO BID * Imdur 30mg PO daily * Doxazosin 4mg PO daily * Hydralazine 10mg IVP Q6H SBP>160 * Monitor intake and output * Daily weights 2.) NSTEMI * Dr. Byrnes, cardiology consulted --> help appreciated * Possible Cardiac Catheterization * Heparin drip * Aspirin 81 mg PO daily * Metoprolol 25 mg PO BID * Imdur 30mg PO daily * Doxazosin 4mg PO daily * Hydralazine 10mg IVP Q6H * Lasix 40mg IVP Q12 * hold Statin given acute renal insufficiency * Avoid BERENICE/ARB dur to MICAELA for now * Daily weights/monitor ins/outs * EKG x2- T-wave inversion Anterior-Lateral leads (possibly an old MO) * Trop #1 0.4240, Trop #2 0.3050, Trop #3 0.2170 * BNP [id number] 3.) Acute Renal Insufficiency * Dr. Lincoln, nephrology consulted ---> Help appreciated * Dr. Rao, vascular surgery consulted-->help appreciated * Patient will likely need dialysis * Renal US (02/16/17): unremarkable sonogram * Today Cr; 5.7 (cr was 1.7 1 year ago) * f/u urine lytes 4.) History of Diabetes * Lantus 25 U SC HS * Novolin 8 U SC ACTID * ISS * Accuchecks QAC and HS * f/u HbA1c 5.) Hypokalemia * Monitor K and Mg 6.) Prophylactic Measures * on Heparin drip * No SCDS due to leg edema * Pepcid 20mg PO daily
[2017-02-17 08:21] LABS: BASO # 0.2 K/uL (0.0-0.2); BASO % 1.9 % (0.0-2.0); EOS # 0.3 K/uL (0.0-0.7); EOS % 3.5 % (0.0-4.0); HEMOGLOBIN 12.7 g/dL (12.0-18.0); LYMPH # 2.5 K/uL (1.0-4.3); LYMPH % 30.1 % (20.0-40.0); MEAN CELL VOLUME 86.6 fL (80.0-94.0); MEAN CORPUSCULAR HEMOGLOBIN 28.2 pg (27.0-31.0); MEAN CORPUSCULAR HGB CONC 32.6 g/dL (33.0-37.0); MEAN PLATELET VOLUME 8.2 fL (7.2-11.7); MONO # 0.5 K/uL (0.0-0.8); MONO % 6.5 % (0.0-10.0); NEUT # 4.9 K/uL (1.8-7.0); RBC 4.49 Mil/uL (4.40-5.90); RED CELL DISTRIBUTION WIDTH 14.6 % (11.5-14.5); WHITE BLOOD COUNT 8.5 K/uL (4.8-10.8)
[2017-02-17 08:23] LABS: INR 0.9; PROTHROMBIN TIME 10.7 SECONDS (9.7-12.2)
[2017-02-17 08:28] LABS: ALBUMIN 2.6 g/dL (3.5-5.0)
[2017-02-17 08:31] LABS: ALB/GLOB RATIO 0.7 (1.0-2.1); AST/SGOT 13 U/L (17-59); GFR AFRICAN-AMERICAN 13; GFR NON-AFRICAN AMERICAN 11
[2017-02-17 08:32] LABS: ALT/SGPT 21 U/L (21-72); BLOOD UREA NITROGEN 36 mg/dL (9-20); MAGNESIUM 2.1 mg/dL (1.6-2.3)
[2017-02-17 09:05] LABS: HEPATITIS B SURFACE AG NEGATIVE (NEGATIVE)
--- NOTE | 2017-02-17 09:19 | CP.PCM.PN ---
Subjective - Date & Time of Evaluation Date of Evaluation: 02/17/17 Time of Evaluation: 08:15 Objective - Vital Signs/Intake and Output Vital Signs (last 24 hours): Temp Pulse Resp BP Pulse Ox 98 F 84 20 170/89 H 98 02/17/17 04:55 02/17/17 04:55 02/17/17 04:55 02/17/17 06:00 02/16/17 23:45 Intake and Output: 02/17/17 02/17/17 06:59 18:59 Output Total 800 Balance -800 - Medications Medications: Current Medications Aspirin (Aspirin Chewable) [address] [facility] Last Admin: 02/16/17 09:30 Dose: 81 mg Doxazosin Mesylate (Cardura) [address] [facility] Last Admin: 02/16/17 10:49 Dose: 4 mg Famotidine (Pepcid) [address] [facility] Last Admin: 02/16/17 10:49 Dose: 20 mg Furosemide (Lasix) [address] [facility] Last Admin: 02/17/17 05:20 Dose: 40 mg Hydralazine HCl (Apresoline) 10 mg IVP Q6H PRN PRN Reason: Systolic Blood Pressure Heparin Sodium/Sodium Chloride (Heparin 51238 Units/250ml 1/2 Normal Saline) 25 ,000 units in 250 mls @ 11.975 mls/hr IV .[id number] PRN; Protocol; 12 UNITS/KG/HR PRN Reason: PROTOCOL Last Admin: 02/16/17 12:45 Dose: 12 units/kg/hr, 11.975 mls/hr Insulin Glargine (Lantus) [address] [facility] Last Admin: 02/16/17 22:06 Dose: 25 u Insulin Human Regular (Novolin R) [address] [facility] PRN Reason: Protocol Last Admin: 02/17/17 07:38 Dose: Not Given Insulin Human Regular (Novolin R) [address] [facility] Last Admin: 02/17/17 07:39 Dose: Not Given Isosorbide Mononitrate (Imdur) [address] [facility] Last Admin: 02/16/17 10:49 Dose: 30 mg Metoprolol Succinate (Toprol Xl) [address] [facility] Last Admin: 02/16/17 10:49 Dose: 25 mg Pneumococcal Polyvalent Vaccine (Pneumovax 23 Vaccine) 0.5 ml IM .ONCE ONE Stop: 02/17/17 10:01 - Labs Labs: 02/17/17 08:08 02/17/17 08:08 PT 10.7 SECONDS (9.7-12.2) 02/17/17 08:08 INR 0.9 02/17/17 08:08 APTT 60 SECONDS (21-34) H 02/17/17 08:08
[2017-02-17] MEDS: Metoprolol Succinate 25 mg XL Tab PO SCH (09:59)
[2017-02-17] MEDS ORDERED: Pneumococcal 23-Valent Vaccine IM ONE (10:00)
--- NOTE | 2017-02-17 11:13 | NM ---
COMPARISON: February 15, 2017. PORTABLE CHEST TECHNIQUE: 9.1 mCi technetium 99-m Xe-133 Gas. 4.1 mCI technetium 99-m MAA administered intravenously. FINDINGS: VENTILATION COMPONENT: Normal. PERFUSION COMPONENT: Heterogeneous distribution of radionuclide. No geographic, segmental, lobar abnormalities apparent on the present examination. IMPRESSION: Low probability ventilation perfusion scan for pulmonary embolism.
[2017-02-17] MEDS: Heparin25000 units/250ml 1/2NS 25,000 UNITS/250 ML BAG IV PRN (12:12)
--- NOTE | 2017-02-17 12:12 | CP.PCM.PN ---
Subjective - Date & Time of Evaluation Date of Evaluation: 02/17/17 Time of Evaluation: 12:08 - Subjective Subjective: Progress Note for Dr. Byrnes Pt seen and examined at bedside. Pt doing well overnight with no acute events as per nursing. Pt states he has mild shortness of breath, otherwise no symptoms. Denies CP, N/V/D, fevers, chills. Objective - Vital Signs/Intake and Output Vital Signs (last 24 hours): Temp Pulse Resp BP Pulse Ox 97.2 F L 88 20 180/106 H 97 02/17/17 09:28 02/17/17 09:28 02/17/17 09:28 02/17/17 09:28 02/17/17 09:28 Intake and Output: 02/17/17 02/17/17 06:59 18:59 Output Total 800 Balance -800 - Medications Medications: Current Medications Aspirin (Aspirin Chewable) 81 mg PO DAILY [facility] Last Admin: 02/17/17 09:58 Dose: 81 mg Doxazosin Mesylate (Cardura) 4 mg PO DAILY [facility] Last Admin: 02/17/17 10:02 Dose: 4 mg Famotidine (Pepcid) 20 mg PO DAILY [facility] Last Admin: 02/17/17 09:58 Dose: 20 mg Furosemide (Lasix) 40 mg IVP Q12H [facility] Last Admin: 02/17/17 05:20 Dose: 40 mg Hydralazine HCl (Apresoline) 10 mg IVP Q6H PRN PRN Reason: Systolic Blood Pressure Last Admin: 02/17/17 09:53 Dose: 10 mg Hydralazine HCl (Apresoline) 25 mg PO Q8H [facility] Heparin Sodium/Sodium Chloride (Heparin 32594 Units/250ml 1/2 Normal Saline) 25 ,000 units in 250 mls @ 11.975 mls/hr IV .[id number] PRN; Protocol; 12 UNITS/KG/HR PRN Reason: PROTOCOL Last Admin: 02/16/17 12:45 Dose: 12 units/kg/hr, 11.975 mls/hr Insulin Glargine (Lantus) 25 unit SC HS [facility] Last Admin: 02/16/17 22:06 Dose: 25 u Insulin Human Regular (Novolin R) 0 unit SC ACHS [facility] PRN Reason: Protocol Last Admin: 02/17/17 07:38 Dose: Not Given Insulin Human Regular (Novolin R) 8 unit SC ACTID [facility] Last Admin: 02/17/17 07:39 Dose: Not Given Isosorbide Mononitrate (Imdur) 30 mg PO DAILY [facility] Last Admin: 02/17/17 10:02 Dose: 30 mg Metoprolol Tartrate (Lopressor) 25 mg PO BID [facility] - Labs Labs: 02/17/17 08:08 02/17/17 08:08 PT 10.7 SECONDS (9.7-12.2) 02/17/17 08:08 INR 0.9 02/17/17 08:08 APTT 60 SECONDS (21-34) H 02/17/17 08:08 - Constitutional Appears: Non-toxic, No Acute Distress - Head Exam Head Exam: ATRAUMATIC, NORMAL INSPECTION, NORMOCEPHALIC - Respiratory Exam Respiratory Exam: Decreased Breath Sounds, NORMAL BREATHING PATTERN - Cardiovascular Exam Cardiovascular Exam: RRR, +S1, +S2 - GI/Abdominal Exam GI & Abdominal Exam: Soft, Normal Bowel Sounds. absent: Tenderness - Extremities Exam Extremities Exam: Pedal Edema. absent: Calf Tenderness - Neurological Exam Neurological Exam: Alert, Awake, Oriented x3 - Skin Skin Exam: Intact, Normal Color, Warm Assessment and Plan (1) NSTEMI (non-ST elevated myocardial infarction) Assessment & Plan: Continue current medical regimen with ASA and heparin drip Pt will undergo cardiac catheterization, not yet scheduled Continue current medical regimen Status: Acute
--- NOTE | 2017-02-17 14:42 | CP.PCM.PN ---
Subjective - Date & Time of Evaluation Date of Evaluation: 02/17/17 Time of Evaluation: 14:40 - Subjective Subjective: seen and examined comfortable denies any chest pain / sob 24 hour urine collection in progress pt npo for tentative cath today Objective - Vital Signs/Intake and Output Vital Signs (last 24 hours): Temp Pulse Resp BP Pulse Ox 97.2 F L 85 20 149/91 H 97 02/17/17 09:28 02/17/17 12:23 02/17/17 09:28 02/17/17 12:56 02/17/17 09:28 Intake and Output: 02/17/17 02/17/17 06:59 18:59 Intake Total 270 Output Total 800 Balance -800 270 - Medications Medications: Current Medications Aspirin (Aspirin Chewable) 81 mg PO DAILY [facility] Last Admin: 02/17/17 09:58 Dose: 81 mg Doxazosin Mesylate (Cardura) 4 mg PO DAILY [facility] Last Admin: 02/17/17 10:02 Dose: 4 mg Famotidine (Pepcid) 20 mg PO DAILY [facility] Last Admin: 02/17/17 09:58 Dose: 20 mg Furosemide (Lasix) 40 mg IVP Q12H [facility] Last Admin: 02/17/17 05:20 Dose: 40 mg Hydralazine HCl (Apresoline) 10 mg IVP Q6H PRN PRN Reason: Systolic Blood Pressure Last Admin: 02/17/17 09:53 Dose: 10 mg Hydralazine HCl (Apresoline) 25 mg PO Q8H [facility] Last Admin: 02/17/17 12:56 Dose: 25 mg Heparin Sodium/Sodium Chloride (Heparin 30597 Units/250ml 1/2 Normal Saline) 25 ,000 units in 250 mls @ 11.975 mls/hr IV .[id number] PRN; Protocol; 12 UNITS/KG/HR PRN Reason: PROTOCOL Last Admin: 02/17/17 12:12 Dose: 12 units/kg/hr, 11.975 mls/hr Insulin Glargine (Lantus) 25 unit SC HS [facility] Last Admin: 02/16/17 22:06 Dose: 25 u Insulin Human Regular (Novolin R) 0 unit SC ACHS [facility] PRN Reason: Protocol Last Admin: 02/17/17 12:29 Dose: Not Given Insulin Human Regular (Novolin R) 8 unit SC ACTID [facility] Last Admin: 02/17/17 12:29 Dose: Not Given Isosorbide Mononitrate (Imdur) 30 mg PO DAILY [facility] Last Admin: 02/17/17 10:02 Dose: 30 mg Metoprolol Tartrate (Lopressor) 25 mg PO BID [facility] Last Admin: 02/17/17 12:56 Dose: 25 mg - Labs Labs: 02/17/17 08:08 02/17/17 08:08 PT 10.7 SECONDS (9.7-12.2) 02/17/17 08:08 INR 0.9 02/17/17 08:08 APTT 60 SECONDS (21-34) H 02/17/17 08:08 - Constitutional Appears: Non-toxic, No Acute Distress, Chronically Ill - Head Exam Head Exam: NORMAL INSPECTION - Eye Exam Eye Exam: Normal appearance - ENT Exam ENT Exam: Mucous Membranes Moist, Normal Exam - Neck Exam Neck Exam: Normal Inspection - Respiratory Exam Respiratory Exam: Clear to Ausculation Bilateral, NORMAL BREATHING PATTERN - Cardiovascular Exam Cardiovascular Exam: REGULAR RHYTHM, RRR - GI/Abdominal Exam GI & Abdominal Exam: Distended, Soft, Normal Bowel Sounds - Extremities Exam Extremities Exam: Normal Inspection, Pedal Edema Assessment and Plan (1) CKD (chronic kidney disease) stage 5, GFR less than 15 ml/min Status: Acute (2) NSTEMI (non-ST elevated myocardial infarction) Status: Acute (3) New onset of congestive heart failure Status: Acute (4) Type 2 diabetes mellitus with diabetic nephropathy Status: Acute (5) Worsening renal function Status: Acute - Assessment and Plan (Free Text) Assessment: plan for cardiac cath noted recommend holding lasix, give mucomyst 600mg bid. unable to give iv fluids, pt fluid overloaded. may need dentist - pt aware
--- NOTE | 2017-02-17 14:57 | CP.PCM.CON ---
History of Present Illness - History of Present Illness History of Present Illness: Surgery: Dr. Glass CC: MICAELA HPI: 41M w. pmh of DM and HTN presents w. NSTEMI requiring cath as well as MICAELA requiring possible CROP OR [employer]. Currently pt is resting comfortably in bed. Has mild SOB, no cough. Otherwise no complaints. Denies CARVALHO/blurred vision, no CP/ palpitations, no abd pain, no N/V/D. PMH: see above PSH: none Meds: MAR reviewed NKDA Social: former smoker, social ETOH, no drugs Fhx: DM Review of Systems - Review of Systems All systems: reviewed and no additional remarkable complaints except (HPI) Past Patient History - Infectious Disease Hx of Infectious Diseases: None - Past Social History Smoking Status: Light Smoker < 10 Cigarettes Daily Chewing Tobacco Use: No Cigar Use: No Alcohol: Occasional - CARDIAC Hx Hypertension: Yes - ENDOCRINE/METABOLIC Hx Diabetes Mellitus Type 2: Yes - MUSCULOSKELETAL/RHEUMATOLOGICAL Hx Falls: No - PSYCHIATRIC Hx Substance Use: No - SURGICAL HISTORY Hx Surgeries: No - ANESTHESIA Hx Anesthesia: No Meds Allergies/Adverse Reactions: Allergies Allergy/AdvReac Type Severity Reaction Status Date / Time No Known Allergies Allergy Verified 01/08/16 10:50 - Medications Medications: Current Medications Aspirin (Aspirin Chewable) 81 mg PO DAILY [facility] Last Admin: 02/17/17 09:58 Dose: 81 mg Doxazosin Mesylate (Cardura) 4 mg PO DAILY [facility] Last Admin: 02/17/17 10:02 Dose: 4 mg Famotidine (Pepcid) 20 mg PO DAILY [facility] Last Admin: 02/17/17 09:58 Dose: 20 mg Furosemide (Lasix) 40 mg IVP Q12H [facility] Last Admin: 02/17/17 05:20 Dose: 40 mg Hydralazine HCl (Apresoline) 10 mg IVP Q6H PRN PRN Reason: Systolic Blood Pressure Last Admin: 02/17/17 09:53 Dose: 10 mg Hydralazine HCl (Apresoline) 25 mg PO Q8H [facility] Last Admin: 02/17/17 12:56 Dose: 25 mg Heparin Sodium/Sodium Chloride (Heparin 40516 Units/250ml 1/2 Normal Saline) 25 ,000 units in 250 mls @ 11.975 mls/hr IV .[id number] PRN; Protocol; 12 UNITS/KG/HR PRN Reason: PROTOCOL Last Admin: 02/17/17 12:12 Dose: 12 units/kg/hr, 11.975 mls/hr Insulin Glargine (Lantus) 25 unit SC HS [facility] Last Admin: 02/16/17 22:06 Dose: 25 u Insulin Human Regular (Novolin R) 0 unit SC ACHS [facility] PRN Reason: Protocol Last Admin: 02/17/17 12:29 Dose: Not Given Insulin Human Regular (Novolin R) 8 unit SC ACTID [facility] Last Admin: 02/17/17 12:29 Dose: Not Given Isosorbide Mononitrate (Imdur) 30 mg PO DAILY [facility] Last Admin: 02/17/17 10:02 Dose: 30 mg Metoprolol Tartrate (Lopressor) 25 mg PO BID [facility] Last Admin: 02/17/17 12:56 Dose: 25 mg Physical Exam - Constitutional Appears: Non-toxic, No Acute Distress - Head Exam Head Exam: ATRAUMATIC, NORMOCEPHALIC - Eye Exam Eye Exam: EOMI - ENT Exam ENT Exam: Mucous Membranes Moist, Normal Exam - Neck Exam Neck exam: Positive for: Full Rom - Respiratory Exam Respiratory Exam: NORMAL BREATHING PATTERN. absent: Accessory Muscle Use, Respiratory Distress - GI/Abdominal Exam GI & Abdominal Exam: Soft. absent: Tenderness - Neurological Exam Neurological exam: Alert, Oriented x3 Results - Vital Signs Recent Vital Signs: Last Vital Signs Temp 97.2 F L 02/17/17 09:28 Pulse 85 02/17/17 12:23 Resp 20 02/17/17 09:28 BP 149/91 H 02/17/17 12:56 Pulse Ox 97 02/17/17 09:28 - Labs Result Diagrams: 02/17/17 08:08 02/17/17 08:08 Labs: Laboratory Results - last 24 hr 02/16/17 02/16/17 02/16/17 16:27 19:37 19:37 WBC RBC Hgb Hct MCV MCH MCHC RDW Plt Count MPV Neut % (Auto) Lymph % (Auto) Freestone % (Auto) Eos % (Auto) Baso % (Auto) Neut # Lymph # Freestone # Eos # Baso # PT INR APTT Sodium Potassium Chloride Carbon Dioxide Anion Gap BUN Creatinine Est GFR ( Amer) Est GFR (Non-Af Amer) POC Glucose (mg/dL) 141 H Random Glucose Hemoglobin A1c Calcium Phosphorus Magnesium % Saturation Total Bilirubin AST ALT Alkaline Phosphatase Total Protein Albumin Globulin Albumin/Globulin Ratio Urine Color Straw Urine Clarity Clear Urine pH 5.0 Ur Specific Stanton 1.009 Urine Protein 2+ H Urine Glucose (UA) 3+ H Urine Ketones Negative Urine Blood Negative Urine Nitrate Negative Urine Bilirubin Negative Urine Urobilinogen Normal Ur Leukocyte Esterase Neg Urine WBC (Auto) 2 Urine RBC (Auto) 1 Ur Squamous Epith Cells < 1 Urine Eosinophils Negative Urine Osmolality Ur Random Sodium Hep Bs Antigen Hepatitis C Antibody 02/16/17 02/16/17 02/16/17 19:37 20:59 21:26 WBC RBC Hgb Hct MCV MCH MCHC RDW Plt Count MPV Neut % (Auto) Lymph % (Auto) Freestone % (Auto) Eos % (Auto) Baso % (Auto) Neut # Lymph # Freestone # Eos # Baso # PT INR APTT 61 H D Sodium Potassium Chloride Carbon Dioxide Anion Gap BUN Creatinine Est GFR ( Amer) Est GFR (Non-Af Amer) POC Glucose (mg/dL) 107 Random Glucose Hemoglobin A1c Calcium Phosphorus Magnesium % Saturation Total Bilirubin AST ALT Alkaline Phosphatase Total Protein Albumin Globulin Albumin/Globulin Ratio Urine Color Urine Clarity Urine pH Ur Specific Stanton Urine Protein Urine Glucose (UA) Urine Ketones Urine Blood Urine Nitrate Urine Bilirubin Urine Urobilinogen Ur Leukocyte Esterase Urine WBC (Auto) Urine RBC (Auto) Ur Squamous Epith Cells Urine Eosinophils Urine Osmolality 330 Ur Random Sodium 92 Hep Bs Antigen Hepatitis C Antibody 02/17/17 02/17/17 02/17/17 06:37 08:08 08:08 WBC 8.5 RBC 4.49 Hgb 12.7 Hct 38.9 MCV 86.6 MCH 28.2 MCHC 32.6 L RDW 14.6 H Plt Count 301 MPV 8.2 Neut % (Auto) 58.0 Lymph % (Auto) 30.1 Freestone % (Auto) 6.5 Eos % (Auto) 3.5 Baso % (Auto) 1.9 Neut # 4.9 Lymph # 2.5 Freestone # 0.5 Eos # 0.3 Baso # 0.2 PT INR APTT Sodium 135 Potassium 3.7 Chloride 104 Carbon Dioxide 24 Anion Gap 11 BUN 36 H Creatinine 5.7 H Est GFR ( Amer) 13 Est GFR (Non-Af Amer) 11 POC Glucose (mg/dL) 112 H Random Glucose 127 H Hemoglobin A1c Calcium 8.0 L Phosphorus 5.7 H Magnesium 2.1 % Saturation Total Bilirubin 0.5 AST 13 L ALT 21 D Alkaline Phosphatase 99 Total Protein 6.4 Albumin 2.6 L Globulin 3.8 Albumin/Globulin Ratio 0.7 L Urine Color Urine Clarity Urine pH Ur Specific Stanton Urine Protein Urine Glucose (UA) Urine Ketones Urine Blood Urine Nitrate Urine Bilirubin Urine Urobilinogen Ur Leukocyte Esterase Urine WBC (Auto) Urine RBC (Auto) Ur Squamous Epith Cells Urine Eosinophils Urine Osmolality Ur Random Sodium Hep Bs Antigen Negative Hepatitis C Antibody 02/17/17 02/17/17 02/17/17 08:08 08:08 08:08 WBC RBC Hgb Hct MCV MCH MCHC RDW Plt Count MPV Neut % (Auto) Lymph % (Auto) Freestone % (Auto) Eos % (Auto) Baso % (Auto) Neut # Lymph # Freestone # Eos # Baso # PT 10.7 INR 0.9 APTT 60 H Sodium Potassium Chloride Carbon Dioxide Anion Gap BUN Creatinine Est GFR ( Amer) Est GFR (Non-Af Amer) POC Glucose (mg/dL) Random Glucose Hemoglobin A1c Calcium Phosphorus Magnesium % Saturation 21 Total Bilirubin AST ALT Alkaline Phosphatase Total Protein Albumin Globulin Albumin/Globulin Ratio Urine Color Urine Clarity Urine pH Ur Specific Stanton Urine Protein Urine Glucose (UA) Urine Ketones Urine Blood Urine Nitrate Urine Bilirubin Urine Urobilinogen Ur Leukocyte Esterase Urine WBC (Auto) Urine RBC (Auto) Ur Squamous Epith Cells Urine Eosinophils Urine Osmolality Ur Random Sodium Hep Bs Antigen Hepatitis C Antibody Negative 02/17/17 02/17/17 12:09 14:08 WBC RBC Hgb Hct MCV MCH MCHC RDW Plt Count MPV Neut % (Auto) Lymph % (Auto) Freestone % (Auto) Eos % (Auto) Baso % (Auto) Neut # Lymph # Freestone # Eos # Baso # PT INR APTT Sodium Potassium Chloride Carbon Dioxide Anion Gap BUN Creatinine Est GFR ( Amer) Est GFR (Non-Af Amer) POC Glucose (mg/dL) 127 H Random Glucose Hemoglobin A1c 11.0 H Calcium Phosphorus Magnesium % Saturation Total Bilirubin AST ALT Alkaline Phosphatase Total Protein Albumin Globulin Albumin/Globulin Ratio Urine Color Urine Clarity Urine pH Ur Specific Stanton Urine Protein Urine Glucose (UA) Urine Ketones Urine Blood Urine Nitrate Urine Bilirubin Urine Urobilinogen Ur Leukocyte Esterase Urine WBC (Auto) Urine RBC (Auto) Ur Squamous Epith Cells Urine Eosinophils Urine Osmolality Ur Random Sodium Hep Bs Antigen Hepatitis C Antibody Assessment & Plan - Assessment and Plan (Free Text) Assessment: 41M w. NSTEM and MICAELA needing dialysis access -will try to coordinate dialysis access w. cardiac cath -NPO at midnight for possible dialysis access tomorrow -d/w attending Rajiv PGY2
[2017-02-17] MEDS: (Lantus) Insulin Glargine, Recombinant SC SCH (22:31)
[2017-02-18] MEDS: (Novolin R) Insulin Human Regular 100 units/ml vial SC SCH ×7 (07:27→22:26)
[2017-02-18 07:35] LABS: BASO # 0.1 K/uL (0.0-0.2); BASO % 1.1 % (0.0-2.0); EOS # 0.2 K/uL (0.0-0.7); EOS % 2.9 % (0.0-4.0); LYMPH # 2.3 K/uL (1.0-4.3); LYMPH % 30.8 % (20.0-40.0); MEAN CELL VOLUME 86.7 fL (80.0-94.0); MEAN CORPUSCULAR HEMOGLOBIN 27.7 pg (27.0-31.0); MEAN CORPUSCULAR HGB CONC 31.9 g/dL (33.0-37.0); MONO # 0.5 K/uL (0.0-0.8); MONO % 7.2 % (0.0-10.0); NEUT # 4.4 K/uL (1.8-7.0); RBC 4.34 Mil/uL (4.40-5.90); RED CELL DISTRIBUTION WIDTH 14.7 % (11.5-14.5); WHITE BLOOD COUNT 7.6 K/uL (4.8-10.8)
[2017-02-18 07:50] LABS: INR 0.9; PROTHROMBIN TIME 10.5 SECONDS (9.7-12.2)
[2017-02-18 08:26] LABS: ALBUMIN 2.5 g/dL (3.5-5.0)
[2017-02-18 08:29] LABS: ALB/GLOB RATIO 0.7 (1.0-2.1)
[2017-02-18 08:31] LABS: MAGNESIUM 2.3 mg/dL (1.6-2.3)
--- NOTE | 2017-02-18 08:43 | CP.PCM.PN ---
Subjective - Date & Time of Evaluation Date of Evaluation: 02/18/17 Time of Evaluation: 08:42 - Subjective Subjective: Vasx Sx: Dr Rao Pt S&E. AUDREY. Complains of sob overnight. For cardiac cath today. Not yet scheduled. Pt to have permacath placed during same intervention. Please page residential sales when procedure time is known. -Ish, PGY2 Objective - Vital Signs/Intake and Output Vital Signs (last 24 hours): Temp Pulse Resp BP Pulse Ox 97.7 F 89 20 158/94 H 94 L 02/18/17 07:00 02/18/17 07:00 02/18/17 07:00 02/18/17 07:00 02/18/17 07:00 Intake and Output: 02/18/17 02/18/17 06:59 18:59 Output Total 400 Balance -400 - Medications Medications: Current Medications Aspirin (Aspirin Chewable) 81 mg PO DAILY [facility] Last Admin: 02/17/17 09:58 Dose: 81 mg Doxazosin Mesylate (Cardura) 4 mg PO DAILY [facility] Last Admin: 02/17/17 10:02 Dose: 4 mg Famotidine (Pepcid) 20 mg PO DAILY [facility] Last Admin: 02/17/17 09:58 Dose: 20 mg Furosemide (Lasix) 40 mg IVP Q12H [facility] Last Admin: 02/17/17 05:20 Dose: 40 mg Hydralazine HCl (Apresoline) 10 mg IVP Q6H PRN PRN Reason: Systolic Blood Pressure Last Admin: 02/17/17 09:53 Dose: 10 mg Hydralazine HCl (Apresoline) 25 mg PO Q8H [facility] Last Admin: 02/18/17 03:35 Dose: 25 mg Heparin Sodium/Sodium Chloride (Heparin 22836 Units/250ml 1/2 Normal Saline) 25 ,000 units in 250 mls @ 11.975 mls/hr IV .[id number] PRN; Protocol; 12 UNITS/KG/HR PRN Reason: PROTOCOL Last Admin: 02/17/17 12:12 Dose: 12 units/kg/hr, 11.975 mls/hr Insulin Glargine (Lantus) 25 unit SC HS [facility] Last Admin: 02/17/17 22:31 Dose: 25 u Insulin Human Regular (Novolin R) 0 unit SC ACHS [facility] PRN Reason: Protocol Last Admin: 02/18/17 07:27 Dose: Not Given Insulin Human Regular (Novolin R) 8 unit SC ACTID [facility] Last Admin: 02/18/17 07:27 Dose: Not Given Isosorbide Mononitrate (Imdur) 30 mg PO DAILY [facility] Last Admin: 02/17/17 10:02 Dose: 30 mg Metoprolol Tartrate (Lopressor) 25 mg PO BID [facility] Last Admin: 02/17/17 17:32 Dose: 25 mg - Labs Labs: 02/18/17 07:20 02/18/17 07:20 PT 10.5 SECONDS (9.7-12.2) 02/18/17 07:20 INR 0.9 02/18/17 07:20 APTT 63 SECONDS (21-34) H 02/18/17 07:20
--- NOTE | 2017-02-18 11:08 | CP.PCM.PN ---
Subjective - Date & Time of Evaluation Date of Evaluation: 02/18/17 Time of Evaluation: 07:00 - Subjective Subjective: Medicine Note (PGY 1): Dr. French's service Patient was seen and examined at bedside in the AM. Patient states he is congested and has difficulty breathing through his mouth. Patient denies chest pain, nausea, vomiting, fever, dysuria, diarrhea or constipation. Objective - Vital Signs/Intake and Output Vital Signs (last 24 hours): Temp Pulse Resp BP Pulse Ox 97.7 F 89 20 158/74 H 94 L 02/18/17 07:00 02/18/17 07:00 02/18/17 07:00 02/18/17 10:58 02/18/17 07:00 Intake and Output: 02/18/17 02/18/17 06:59 18:59 Output Total 400 Balance -400 - Medications Medications: Current Medications Aspirin (Aspirin Chewable) 81 mg PO DAILY [facility] Last Admin: 02/18/17 10:58 Dose: Not Given Doxazosin Mesylate (Cardura) 4 mg PO DAILY [facility] Last Admin: 02/18/17 10:58 Dose: 4 mg Famotidine (Pepcid) 20 mg PO DAILY [facility] Last Admin: 02/18/17 10:58 Dose: Not Given Fluticasone Propionate (Flonase) 1 spr NS DAILY [facility] Furosemide (Lasix) 40 mg IVP Q12H [facility] Last Admin: 02/17/17 05:20 Dose: 40 mg Hydralazine HCl (Apresoline) 10 mg IVP Q6H PRN PRN Reason: Systolic Blood Pressure Last Admin: 02/17/17 09:53 Dose: 10 mg Hydralazine HCl (Apresoline) 50 mg PO Q6H [facility] Last Admin: 02/18/17 10:57 Dose: 50 mg Heparin Sodium/Sodium Chloride (Heparin 68988 Units/250ml 1/2 Normal Saline) 25 ,000 units in 250 mls @ 11.975 mls/hr IV .[id number] PRN; Protocol; 12 UNITS/KG/HR PRN Reason: PROTOCOL Last Admin: 02/17/17 12:12 Dose: 12 units/kg/hr, 11.975 mls/hr Insulin Glargine (Lantus) 25 unit SC [facility] Last Admin: 02/17/17 22:31 Dose: 25 u Insulin Human Regular (Novolin R) 0 unit SC ACHS [facility] PRN Reason: Protocol Last Admin: 02/18/17 07:27 Dose: Not Given Insulin Human Regular (Novolin R) 8 unit SC ACTID [facility] Last Admin: 02/18/17 07:27 Dose: Not Given Isosorbide Mononitrate (Imdur) 30 mg PO DAILY [facility] Last Admin: 02/18/17 10:57 Dose: 30 mg Metoprolol Tartrate (Lopressor) 25 mg PO BID [facility] Last Admin: 02/18/17 10:58 Dose: 25 mg - Labs Labs: 02/18/17 07:20 02/18/17 07:20 PT 10.5 SECONDS (9.7-12.2) 02/18/17 07:20 INR 0.9 02/18/17 07:20 APTT 63 SECONDS (21-34) H 02/18/17 07:20 - Constitutional Appears: No Acute Distress - Head Exam Head Exam: NORMAL INSPECTION - Eye Exam Eye Exam: Normal appearance - ENT Exam ENT Exam: Mucous Membranes Moist - Respiratory Exam Respiratory Exam: Clear to Ausculation Bilateral, NORMAL BREATHING PATTERN - Cardiovascular Exam Cardiovascular Exam: REGULAR RHYTHM, +S1, +S2. absent: JVD - GI/Abdominal Exam GI & Abdominal Exam: Soft, Normal Bowel Sounds. absent: Distended, Tenderness - Extremities Exam Extremities Exam: Pedal Edema (+2). absent: Calf Tenderness, Tenderness - Neurological Exam Neurological Exam: Alert, Awake, Oriented x3 - Psychiatric Exam Psychiatric exam: Normal Mood - Skin Skin Exam: Normal Color, Warm Assessment and Plan - Assessment and Plan (Free Text) Assessment: 41 year old male with a past medical history of DM and HTN presented to the ED with shortness of breath for 2 weeks. Plan: 1.) Congestive Heart Failure Exacerbation * Dr. Byrnes, cardiology consulted --> help appreciatedLasix 40 mg IV Q12 * O2 via 2L of NC * ON HOLD: Lasix 40mg IVP Q12 ---> RESUME AFTER CATH * Xray - venous congestion cardiomegaly * f/u ECHO 02/15/17 * Venous duplex scan (02/16/17): Right: No evidence of deep or superficial vein thrombosis of the right lower extremity. Normal valve function noted of the right side. Left: No evidence of deep or superficial vein thrombosis of the left lower extremity. Normal valve function noted of the left side. * VQ Scan (02/17/17): Low probability ventilation perfusion scan for pulmonary embolism 2.) NSTEMI * Dr. Byrnes, cardiology consulted --> help appreciated * [place] [facility] [place] Lynn after patient receives dialysis access * Heparin 25,000 units in 250 mls * Aspirin 81 mg PO daily * Imdur 30mg PO daily * Doxazosin 4mg PO daily * Crestor 20mg PO daily HS * Avoid BERENICE/ARB dur to MICAELA for now * Daily weights/monitor ins/outs * EKG x2- T-wave inversion Anterior-Lateral leads (possibly an old UT) * Trop #1 0.4240, Trop #2 0.3050, Trop #3 0.2170 * BNP [id number] * f/u Lipid Panel 3.) Acute Renal Insufficiency * Dialysis Access 02/19/17 * Surgery Consulted, Dr. Rao ---> Help appreciated * Discussed with patient decrease in renal function and the possibility that he may need dialysis * BUN/Cr: (02/18/17): 36/5.7; (02/17/17): 36/5.7; BUN/Cr (02/16/17):36/5.2 (cr was 1.7 one year ago) * Monitor * Renal US (02/16/17): Unremarkable renal sonogram * Urine lytes: Urine protein collected in 24 hours: 54165.0 * Dr. Lincoln, nephrology consulted ---> Help appreciated 4.) Nasal Congestion * Flonase 1 spray nasal daily 5.) History of Hypertension * Currently uncontrolled * Hydralazine 25mg PO Q8H * Hydralazine 10mg IVP Q6H PRN if systolic blood pressure is above 160 * Metoprolol Tartrate 25 mg PO BID 6.) History of Diabetes * Lantus 25 U SC HS * Novolin 8 U SC ACTID * ISS * Acuuchecks * f/u HbA1c 7.) Hypokalemia * Resolved 8.) Prophylactic Measures * Heparin 5,000 U SC Q8 stopped on 02/16/17 * No SCDS due to leg edema * Protonix 40mg PO daily
[2017-02-18] MEDS: Fluticasone Nasal 50 mcg/Spray NS SCH (11:18)
[2017-02-18] MEDS: Heparin25000 units/250ml 1/2NS 25,000 UNITS/250 ML BAG IV PRN (11:22)
--- NOTE | 2017-02-18 12:20 | CP.PCM.PN ---
Subjective - Date & Time of Evaluation Date of Evaluation: 02/18/17 Time of Evaluation: 12:18 - Subjective Subjective: Progress Note for Dr. Swift Pt seen and examined at bedside. Pt doing well overnight with no acute events. Pt is scheduled for cardiac cath and dialysis catheter placement today. Pt admits to SOB. Denies CP, N/V/D, fevers, chills. Objective - Vital Signs/Intake and Output Vital Signs (last 24 hours): Temp Pulse Resp BP Pulse Ox 97.7 F 89 20 158/74 H 94 L 02/18/17 07:00 02/18/17 07:00 02/18/17 07:00 02/18/17 10:58 02/18/17 07:00 Intake and Output: 02/18/17 02/18/17 06:59 18:59 Intake Total 250 Output Total 400 Balance -400 250 - Medications Medications: Current Medications Aspirin (Aspirin Chewable) 81 mg PO DAILY [facility] Last Admin: 02/18/17 10:58 Dose: Not Given Doxazosin Mesylate (Cardura) 4 mg PO DAILY [facility] Last Admin: 02/18/17 10:58 Dose: 4 mg Famotidine (Pepcid) 20 mg PO DAILY [facility] Last Admin: 02/18/17 10:58 Dose: Not Given Fluticasone Propionate (Flonase) 1 spr NS DAILY [facility] Last Admin: 02/18/17 11:18 Dose: 1 spr Furosemide (Lasix) 40 mg IVP Q12H [facility] Last Admin: 02/17/17 05:20 Dose: 40 mg Hydralazine HCl (Apresoline) 10 mg IVP Q6H PRN PRN Reason: Systolic Blood Pressure Last Admin: 02/17/17 09:53 Dose: 10 mg Hydralazine HCl (Apresoline) 50 mg PO Q6H [facility] Last Admin: 02/18/17 10:57 Dose: 50 mg Heparin Sodium/Sodium Chloride (Heparin 06611 Units/250ml 1/2 Normal Saline) 25 ,000 units in 250 mls @ 11.975 mls/hr IV .[id number] PRN; Protocol; 12 UNITS/KG/HR PRN Reason: PROTOCOL Last Admin: 02/18/17 11:22 Dose: 12 units/kg/hr, 11.975 mls/hr Insulin Glargine (Lantus) 25 unit SC HS [facility] Last Admin: 02/17/17 22:31 Dose: 25 u Insulin Human Regular (Novolin R) 0 unit SC ACHS [facility] PRN Reason: Protocol Last Admin: 02/18/17 12:04 Dose: Not Given Insulin Human Regular (Novolin R) 8 unit SC ACTID [facility] Last Admin: 02/18/17 12:04 Dose: Not Given Isosorbide Mononitrate (Imdur) 30 mg PO DAILY [facility] Last Admin: 02/18/17 10:57 Dose: 30 mg Metoprolol Tartrate (Lopressor) 25 mg PO BID [facility] Last Admin: 02/18/17 10:58 Dose: 25 mg - Labs Labs: 02/18/17 07:20 02/18/17 07:20 PT 10.5 SECONDS (9.7-12.2) 02/18/17 07:20 INR 0.9 02/18/17 07:20 APTT 63 SECONDS (21-34) H 02/18/17 07:20 - Constitutional Appears: Non-toxic, No Acute Distress - Head Exam Head Exam: ATRAUMATIC, NORMAL INSPECTION, NORMOCEPHALIC - Respiratory Exam Respiratory Exam: Decreased Breath Sounds, NORMAL BREATHING PATTERN - Cardiovascular Exam Cardiovascular Exam: RRR, +S1, +S2 - GI/Abdominal Exam GI & Abdominal Exam: Soft, Normal Bowel Sounds. absent: Tenderness - Extremities Exam Extremities Exam: Pedal Edema (Trace b/l). absent: Calf Tenderness - Neurological Exam Neurological Exam: Alert, Awake, Oriented x3 - Skin Skin Exam: Intact, Normal Color, Warm Assessment and Plan (1) NSTEMI (non-ST elevated myocardial infarction) Assessment & Plan: Continue heparin drip and plavix at this time Pt will continue current medical regimen Further recommendations after cardiac cath Status: Acute
--- NOTE | 2017-02-18 14:34 | CP.PCM.PN ---
Subjective - Date & Time of Evaluation Date of Evaluation: 02/18/17 Time of Evaluation: 14:25 - Subjective Subjective: Plans for cardiac cath noted CHF treated with IV lasix Creat remains very elevated at 5.7 Urine protein excretion rate- over 17gms Less dyspneic now, no CPs Plans for dialysis cath [place] [facility] [place] Dialysis consent obtained Objective - Vital Signs/Intake and Output Vital Signs (last 24 hours): Temp Pulse Resp BP Pulse Ox 97.7 F 89 20 158/74 H 94 L 02/18/17 07:00 02/18/17 07:00 02/18/17 07:00 02/18/17 10:58 02/18/17 07:00 Intake and Output: 02/18/17 02/18/17 06:59 18:59 Intake Total 250 Output Total 400 Balance -400 250 - Medications Medications: Current Medications Aspirin (Aspirin Chewable) 81 mg PO DAILY [facility] Last Admin: 02/18/17 10:58 Dose: Not Given Doxazosin Mesylate (Cardura) 4 mg PO DAILY [facility] Last Admin: 02/18/17 10:58 Dose: 4 mg Famotidine (Pepcid) 20 mg PO DAILY [facility] Last Admin: 02/18/17 10:58 Dose: Not Given Fluticasone Propionate (Flonase) 1 spr NS DAILY [facility] Last Admin: 02/18/17 11:18 Dose: 1 spr Furosemide (Lasix) 40 mg IVP Q12H [facility] Last Admin: 02/17/17 05:20 Dose: 40 mg Hydralazine HCl (Apresoline) 10 mg IVP Q6H PRN PRN Reason: Systolic Blood Pressure Last Admin: 02/17/17 09:53 Dose: 10 mg Hydralazine HCl (Apresoline) 50 mg PO Q6H [facility] Last Admin: 02/18/17 10:57 Dose: 50 mg Heparin Sodium/Sodium Chloride (Heparin 96236 Units/250ml 1/2 Normal Saline) 25 ,000 units in 250 mls @ 11.975 mls/hr IV .[id number] PRN; Protocol; 12 UNITS/KG/HR PRN Reason: PROTOCOL Last Admin: 02/18/17 11:22 Dose: 12 units/kg/hr, 11.975 mls/hr Insulin Glargine (Lantus) 25 unit SC HS [facility] Last Admin: 02/17/17 22:31 Dose: 25 u Insulin Human Regular (Novolin R) 0 unit SC ACHS [facility] PRN Reason: Protocol Last Admin: 02/18/17 12:04 Dose: Not Given Insulin Human Regular (Novolin R) 8 unit SC ACTID [facility] Last Admin: 02/18/17 12:04 Dose: Not Given Isosorbide Mononitrate (Imdur) 30 mg PO DAILY [facility] Last Admin: 02/18/17 10:57 Dose: 30 mg Metoprolol Tartrate (Lopressor) 25 mg PO BID [facility] Last Admin: 02/18/17 10:58 Dose: 25 mg Rosuvastatin Calcium (Crestor) 20 mg PO [facility] - Labs Labs: 02/18/17 07:20 02/18/17 07:20 PT 10.5 SECONDS (9.7-12.2) 02/18/17 07:20 INR 0.9 02/18/17 07:20 APTT 63 SECONDS (21-34) H 02/18/17 07:20 - Constitutional Appears: No Acute Distress, Chronically Ill - Head Exam Head Exam: ATRAUMATIC, NORMAL INSPECTION - Eye Exam Eye Exam: EOMI, Normal appearance - Neck Exam Neck Exam: Normal Inspection. absent: Tenderness - Respiratory Exam Respiratory Exam: Clear to Ausculation Bilateral, NORMAL BREATHING PATTERN - Cardiovascular Exam Cardiovascular Exam: REGULAR RHYTHM, +S1 - GI/Abdominal Exam GI & Abdominal Exam: Soft. absent: Tenderness - Extremities Exam Extremities Exam: Normal Inspection. 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
--- NOTE | 2017-02-18 15:22 | VASCLAB ---
PROCEDURE: Lower Extremity Venous Duplex Exam. HISTORY: lower extremity edema, Chronic renal failure PRIORS: None. TECHNIQUE: Bilateral common femoral, femoral, popliteal and posterior tibial, peroneal and great saphenous veins were evaluated. Flow was assessed with color Doppler, compressibility, assessment of phasic flow and augmentation response. Report prepared by José Luis Gaspar, T FINDINGS: RIGHT: 1. Common Femoral Vein: 1.1. Compressibility - Fully compressible: Thrombus - None : Flow - Phasic: Augmentation -Normal: Reflux - None. 2. Femoral Vein: 2.1. Compressibility - Fully compressible: Thrombus - None : Flow - Phasic: Augmentation -Normal: Reflux - None. 3. Popliteal Vein: 3.1. Compressibility - Fully compressible: Thrombus - None : Flow - Phasic: Augmentation -Normal: Reflux - None. 4. Posterior Tibial Vein: 4.1. Compressibility - Fully compressible: Thrombus - None: Flow - Phasic: Augmentation -Normal: Reflux - None. 5. Peroneal Vein: 5.1. Compressibility - Fully compressible: Thrombus - None: Flow - Phasic: Augmentation -Normal: Reflux - None. 6. Great Saphenous Vein: 6.1. Compressibility - Fully compressible: Thrombus - None: Flow - Phasic: Augmentation - Normal: Reflux - None. LEFT: 1. Common Femoral Vein: 1.1. Compressibility - Fully compressible: Thrombus - None: Flow - Phasic: Augmentation -Normal: Reflux - None. 2. Femoral Vein: 2.1. Compressibility - Fully compressible: Thrombus - None: Flow - Phasic: Augmentation -Normal: Reflux - None. 3. Popliteal Vein: 3.1. Compressibility - Fully compressible: Thrombus - None : Flow - Phasic: Augmentation -Normal: Reflux - None. 4. Posterior Tibial Vein: 4.1. Compressibility - Fully compressible: Thrombus - None: Flow - Phasic: Augmentation -Normal: Reflux - None. 5. Peroneal Vein: 5.1. Compressibility - Fully compressible: Thrombus - None: Flow - Phasic: Augmentation -Normal: Reflux - None. 6. Great Saphenous Vein: 6.1. Compressibility - Fully compressible: Thrombus - None: Flow - Phasic: Augmentation - Normal: Reflux - None. OTHER FINDINGS: Right: None significant. Left: None significant. IMPRESSION: Right: No evidence of deep or superficial vein thrombosis of the right lower extremity. Normal valve function noted of the right side. Left: No evidence of deep or superficial vein thrombosis of the left lower extremity. Normal valve function noted of the left side.
--- NOTE | 2017-02-18 17:36 | RAD ---
HISTORY: CHF COMPARISON: 02/15/2017 FINDINGS: LUNGS: No mild central pulmonary vascular congestive changes with bilateral lower lobe alveolar-type infiltrates and bilateral effusions with suspected mild improvement. PLEURA: No significant pleural effusion identified, no pneumothorax apparent. CARDIOVASCULAR: The heart appears enlarged despite the some S of partial silhouetting left cardiac border OSSEOUS STRUCTURES: No significant abnormalities. VISUALIZED UPPER ABDOMEN: Normal. OTHER FINDINGS: None. IMPRESSION: Mild pulmonary vascular congestive changes with bilateral lower lobe alveolar-type infiltrates and bilateral effusions with suspected mild improvement. .
[2017-02-18 17:39] LABS: HDL CHOLESTEROL 51 mg/dL (30-70)
[2017-02-18 18:00] LABS: LDL CHOLESTEROL 189 mg/dL (0-129)
[2017-02-18] MEDS: (Lantus) Insulin Glargine, Recombinant SC SCH (22:26)
--- NOTE | 2017-02-19 06:47 | CARD ---
APPROVED REPORT EKG Measurement Heart [id number] <Conclusion> Normal sinus rhythm Anteroseptal infarct, age undetermined T wave abnormality, consider lateral ischemia Abnormal ECG
[2017-02-19] MEDS: (Novolin R) Insulin Human Regular 100 units/ml vial SC SCH ×5 (07:32→21:57)
[2017-02-19 07:41] LABS: BASO # 0.1 K/uL (0.0-0.2); EOS # 0.2 K/uL (0.0-0.7); EOS % 2.7 % (0.0-4.0); LYMPH # 1.8 K/uL (1.0-4.3); LYMPH % 24.1 % (20.0-40.0); MEAN CORPUSCULAR HGB CONC 32.2 g/dL (33.0-37.0); MEAN PLATELET VOLUME 8.2 fL (7.2-11.7); MONO # 0.6 K/uL (0.0-0.8); MONO % 8.4 % (0.0-10.0); NEUT # 4.7 K/uL (1.8-7.0); NEUT % 63.8 % (50.0-75.0); NRBC % 0.1 % (0.0-2.0); RBC 4.28 Mil/uL (4.40-5.90); RED CELL DISTRIBUTION WIDTH 15.1 % (11.5-14.5); WHITE BLOOD COUNT 7.4 K/uL (4.8-10.8)
[2017-02-19 07:43] LABS: INR 0.9; PROTHROMBIN TIME 10.4 SECONDS (9.7-12.2)
[2017-02-19 08:14] LABS: ALBUMIN 2.4 g/dL (3.5-5.0)
[2017-02-19 08:17] LABS: ALB/GLOB RATIO 0.7 (1.0-2.1)
[2017-02-19 08:18] LABS: CALCIUM 7.8 mg/dl (8.6-10.4); MAGNESIUM 2.2 mg/dL (1.6-2.3)
[2017-02-19] MEDS: Heparin25000 units/250ml 1/2NS 25,000 UNITS/250 ML BAG IV PRN (09:38)
[2017-02-19] MEDS: Fluticasone Nasal 50 mcg/Spray NS SCH (09:53)
--- NOTE | 2017-02-19 11:01 | CP.PCM.PN ---
Subjective - Date & Time of Evaluation Date of Evaluation: 02/19/17 Time of Evaluation: 10:55 - Subjective Subjective: Cardiac cath on hold? Creatinine increasing- have advised dialysis prior to cardiac cath Patient want to discuss with others about dialysis Still dyspneic Maintained on heparin drip Objective - Vital Signs/Intake and Output Vital Signs (last 24 hours): Temp Pulse Resp BP Pulse Ox 97.6 F 93 H 20 151/94 H 94 L 02/19/17 08:37 02/19/17 08:37 02/19/17 08:37 02/19/17 09:53 02/19/17 08:37 Intake and Output: 02/19/17 02/19/17 06:59 18:59 Intake Total 250 Output Total 400 Balance -400 250 - Medications Medications: Current Medications Aspirin (Aspirin Chewable) 81 mg PO DAILY [facility] Last Admin: 02/19/17 09:52 Dose: 81 mg Calcium Acetate (Phoslo) 667 mg PO TIDCC [facility] Last Admin: 02/19/17 09:02 Dose: Not Given Doxazosin Mesylate (Cardura) 4 mg PO DAILY [facility] Last Admin: 02/19/17 09:54 Dose: 4 mg Famotidine (Pepcid) 20 mg PO DAILY [facility] Last Admin: 02/19/17 09:52 Dose: 20 mg Fluticasone Propionate (Flonase) 1 spr NS DAILY [facility] Last Admin: 02/19/17 09:53 Dose: 1 spr Furosemide (Lasix) 40 mg IVP Q12H [facility] Last Admin: 02/17/17 05:20 Dose: 40 mg Hydralazine HCl (Apresoline) 10 mg IVP Q6H PRN PRN Reason: Systolic Blood Pressure Last Admin: 02/17/17 09:53 Dose: 10 mg Hydralazine HCl (Apresoline) 50 mg PO Q6H [facility] Last Admin: 02/19/17 04:10 Dose: 50 mg Heparin Sodium/Sodium Chloride (Heparin 30825 Units/250ml 1/2 Normal Saline) 25 ,000 units in 250 mls @ 11.975 mls/hr IV .[id number] PRN; Protocol; 12 UNITS/KG/HR PRN Reason: PROTOCOL Last Admin: 02/19/17 09:38 Dose: 12 units/kg/hr, 11.975 mls/hr Insulin Glargine (Lantus) 25 unit SC [facility] Last Admin: 02/18/17 22:26 Dose: Not Given Insulin Human Regular (Novolin R) 0 unit SC ACHS [facility] PRN Reason: Protocol Last Admin: 02/19/17 07:32 Dose: Not Given Insulin Human Regular (Novolin R) 8 unit SC ACTID [facility] Last Admin: 02/19/17 07:33 Dose: Not Given Isosorbide Mononitrate (Imdur) 30 mg PO DAILY [facility] Last Admin: 02/18/17 10:57 Dose: 30 mg Metoprolol Tartrate (Lopressor) 25 mg PO BID [facility] Last Admin: 02/19/17 09:53 Dose: 25 mg Rosuvastatin Calcium (Crestor) 20 mg PO [facility] Last Admin: 02/18/17 22:25 Dose: 20 mg - Labs Labs: 02/19/17 07:21 02/19/17 07:21 PT 10.4 SECONDS (9.7-12.2) 02/19/17 07:21 INR 0.9 02/19/17 07:21 APTT 67 SECONDS (21-34) H 02/19/17 07:21 - Constitutional Appears: No Acute Distress, Chronically Ill - Head Exam Head Exam: ATRAUMATIC, NORMAL INSPECTION - Eye Exam Eye Exam: EOMI, Normal appearance - Neck Exam Neck Exam: Normal Inspection. absent: Tenderness - Cardiovascular Exam Cardiovascular Exam: REGULAR RHYTHM, +S1 - GI/Abdominal Exam GI & Abdominal Exam: Soft. absent: Tenderness - Extremities Exam Extremities Exam: Normal Inspection. 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
--- NOTE | 2017-02-19 21:43 | CP.PCM.PN ---
Subjective - Date & Time of Evaluation Date of Evaluation: 02/19/17 Time of Evaluation: 13:30 - Subjective Subjective: Vascular sx progress note for Dr. Christiane Menard, PGY-1 Pt S & E at bedside this AM. Pt reports some CP overnight, denies N/V/F/C, SOB, ab pain, LE pain. Is tolerating diet. Pt declined permacatheter placement this AM, however after speaking with nephrology, consented to have perma-catheter placed. Pt ate a late breakfast at 11am, will be scheduled for OR in AM tomorrow. Objective - Vital Signs/Intake and Output Vital Signs (last 24 hours): Temp Pulse Resp BP Pulse Ox 97.6 F 93 H 20 151/94 H 94 L 02/19/17 08:37 02/19/17 08:37 02/19/17 08:37 02/19/17 09:53 02/19/17 08:37 Intake and Output: 02/19/17 02/20/17 18:59 06:59 Intake Total 250 Balance 250 - Medications Medications: Current Medications Aspirin (Aspirin Chewable) 81 mg PO DAILY [facility] Last Admin: 02/19/17 09:52 Dose: 81 mg Calcium Acetate (Phoslo) 667 mg PO TIDCC [facility] Last Admin: 02/19/17 12:13 Dose: Not Given Doxazosin Mesylate (Cardura) 4 mg PO DAILY [facility] Last Admin: 02/19/17 09:54 Dose: 4 mg Famotidine (Pepcid) 20 mg PO DAILY [facility] Last Admin: 02/19/17 09:52 Dose: 20 mg Fluticasone Propionate (Flonase) 1 spr NS DAILY [facility] Last Admin: 02/19/17 09:53 Dose: 1 spr Furosemide (Lasix) 40 mg IVP Q12H [facility] Last Admin: 02/17/17 05:20 Dose: 40 mg Hydralazine HCl (Apresoline) 10 mg IVP Q6H PRN PRN Reason: Systolic Blood Pressure Last Admin: 02/17/17 09:53 Dose: 10 mg Hydralazine HCl (Apresoline) 50 mg PO Q6H [facility] Last Admin: 02/19/17 11:30 Dose: 50 mg Heparin Sodium/Sodium Chloride (Heparin 90041 Units/250ml 1/2 Normal Saline) 25 ,000 units in 250 mls @ 11.975 mls/hr IV .[id number] PRN; Protocol; 12 UNITS/KG/HR PRN Reason: PROTOCOL Last Admin: 02/19/17 09:38 Dose: 12 units/kg/hr, 11.975 mls/hr Insulin Glargine (Lantus) 25 unit SC [facility] Last Admin: 02/18/17 22:26 Dose: Not Given Insulin Human Regular (Novolin R) 0 unit SC ACHS [facility] PRN Reason: Protocol Last Admin: 02/19/17 12:13 Dose: Not Given Insulin Human Regular (Novolin R) 8 unit SC ACTID [facility] Last Admin: 02/19/17 12:13 Dose: Not Given Isosorbide Mononitrate (Imdur) 30 mg PO DAILY [facility] Last Admin: 02/19/17 11:30 Dose: 30 mg Metoprolol Tartrate (Lopressor) 25 mg PO BID [facility] Last Admin: 02/19/17 09:53 Dose: 25 mg Rosuvastatin Calcium (Crestor) 20 mg PO [facility] Last Admin: 02/18/17 22:25 Dose: 20 mg - Labs Labs: 02/19/17 07:21 02/19/17 07:21 PT 10.4 SECONDS (9.7-12.2) 02/19/17 07:21 INR 0.9 02/19/17 07:21 APTT 67 SECONDS (21-34) H 02/19/17 07:21 - Constitutional Appears: Non-toxic, No Acute Distress - Head Exam Head Exam: ATRAUMATIC, NORMAL INSPECTION, NORMOCEPHALIC - Eye Exam Eye Exam: EOMI, Normal appearance - ENT Exam ENT Exam: Mucous Membranes Moist, Normal Exam - Neck Exam Neck Exam: Full ROM, Normal Inspection - Respiratory Exam Respiratory Exam: Clear to Ausculation Bilateral, NORMAL BREATHING PATTERN. absent: Chest Wall Tenderness, Respiratory Distress - Cardiovascular Exam Cardiovascular Exam: REGULAR RHYTHM, +S1, +S2 - GI/Abdominal Exam GI & Abdominal Exam: Soft, Normal Bowel Sounds. absent: Tenderness - Extremities Exam Extremities Exam: Normal Capillary Refill, Normal Inspection - Back Exam Back Exam: Full ROM, NORMAL INSPECTION - Neurological Exam Neurological Exam: Alert, Awake, CN II-XII Intact, Oriented x3 - Skin Skin Exam: Dry, Intact, Normal Color, Warm Assessment and Plan - Assessment and Plan (Free Text) Plan: ESRD requiring perma-catheter placement -NPO after MN on 02/20 -Hold Heparin drip at 7am on 02/20 -Consent in chart -plan for OR at 11am on 02/20 DW attending [place] PGY-1
[2017-02-19] MEDS: (Lantus) Insulin Glargine, Recombinant SC SCH (21:56)
[2017-02-19] MEDS ORDERED: guaiFENesin 100 mg/5 ml Syrup UD PO ONE (23:30)
[2017-02-20 07:59] LABS: BASO # 0.1 K/uL (0.0-0.2); BASO % 0.8 % (0.0-2.0); EOS # 0.2 K/uL (0.0-0.7); EOS % 2.3 % (0.0-4.0); HEMOGLOBIN 11.4 g/dL (12.0-18.0); LYMPH # 1.9 K/uL (1.0-4.3); LYMPH % 22.2 % (20.0-40.0); MEAN CELL VOLUME 87.8 fL (80.0-94.0); MEAN CORPUSCULAR HEMOGLOBIN 27.7 pg (27.0-31.0); MEAN CORPUSCULAR HGB CONC 31.6 g/dL (33.0-37.0); MEAN PLATELET VOLUME 8.6 fL (7.2-11.7); MONO # 0.7 K/uL (0.0-0.8); MONO % 8.1 % (0.0-10.0); NEUT # 5.8 K/uL (1.8-7.0); NEUT % 66.6 % (50.0-75.0); RBC 4.1 Mil/uL (4.40-5.90); RED CELL DISTRIBUTION WIDTH 15.2 % (11.5-14.5); WHITE BLOOD COUNT 8.8 K/uL (4.8-10.8)
[2017-02-20 08:00] LABS: PROTHROMBIN TIME 10.7 SECONDS (9.7-12.2)
[2017-02-20] MEDS: (Novolin R) Insulin Human Regular 100 units/ml vial SC SCH ×7 (08:00→21:46)
[2017-02-20 08:42] LABS: ALBUMIN 2.5 g/dL (3.5-5.0)
[2017-02-20 08:45] LABS: ALB/GLOB RATIO 0.8 (1.0-2.1)
[2017-02-20 08:46] LABS: CALCIUM 7.8 mg/dl (8.6-10.4); MAGNESIUM 2.4 mg/dL (1.6-2.3)
[2017-02-20] MEDS ORDERED: Lidocaine 1% Inj (20ml) ONE (10:49)
[2017-02-20] MEDS ORDERED: HEPARIN-NS 5,000 UNITS/500 ML 5,000 UNIT/500 ML BAG IV ONE (10:49)
[2017-02-20] MEDS ORDERED: Bupivacaine 0.5% Inj(30mL) ONE (10:49)
[2017-02-20] MEDS ORDERED: Bupivacaine HCl 0.5% PF (10 ml) Inj ONE (10:50)
[2017-02-20] MEDS: Fluticasone Nasal 50 mcg/Spray NS SCH (10:55)
[2017-02-20] MEDS ORDERED: Midazolam 2 MG/2 ML VIAL ONE (12:08)
[2017-02-20] MEDS ORDERED: Propofol 10 mg/ml Inj (20 ML) ONE (12:08)
[2017-02-20] MEDS ORDERED: ceFAZolin IV 1 gm in Dextrose 1 GM/50 ML BAG IVPB ONE (12:15)
--- NOTE | 2017-02-20 13:15 | PCM.SURG1 ---
Surgeon's Initial Post Op Note - Surgeon's Notes Surgeon: Luiz Packerhead Machine Operator: Jun Pre-Operative Diagnosis: MICAELA/NSTEMI Operative Findings: Right internal jugular vein Post-Operative Diagnosis: same Operation Performed: right IJ permacath placement Specimen/Specimens Removed: none Estimated Blood Loss: EBL {In ML}: 15 Date of Surgery/Procedure: 02/20/17 Time of Surgery/Procedure: 12:15
[2017-02-20] MEDS: HYDROmorphone 0.5 mg/0.5 ml ISec IVP PRN ×2 (14:46→19:22)
--- NOTE | 2017-02-20 14:53 | CP.PCM.PN ---
Subjective - Date & Time of Evaluation Date of Evaluation: 02/20/17 Time of Evaluation: 07:45 - Subjective Subjective: Medicine Note (PGY 1) : Dr. French's Service Patient was seen and examined at bedside. Patient had no acute events overnight. Patient continues to report shortness of breath with minimal chest pain. Patient denies fever, chills, nausea, vomiting, headache, abd pain, diarrhea. Patient will be going for a perm cath today. Patient had no new complaints. Objective - Vital Signs/Intake and Output Vital Signs (last 24 hours): Temp Pulse Resp BP Pulse Ox 97.1 F L 87 18 124/83 95 02/20/17 14:07 02/20/17 14:07 02/20/17 14:07 02/20/17 14:07 02/20/17 14:07 Intake and Output: 02/20/17 02/20/17 06:59 18:59 Intake Total 50 20 Output Total 350 Balance -300 20 - Medications Medications: Current Medications Aspirin (Aspirin Chewable) 81 mg PO DAILY [facility] Last Admin: 02/20/17 10:44 Dose: Not Given Calcium Acetate (Phoslo) 667 mg PO TIDCC [facility] Last Admin: 02/20/17 12:00 Dose: Not Given Doxazosin Mesylate (Cardura) 4 mg PO DAILY [facility] Last Admin: 02/20/17 10:53 Dose: 4 mg Famotidine (Pepcid) 20 mg PO DAILY [facility] Last Admin: 02/20/17 10:44 Dose: Not Given Fluticasone Propionate (Flonase) 1 spr NS DAILY [facility] Last Admin: 02/20/17 10:55 Dose: Not Given Furosemide (Lasix) 40 mg IVP Q12H [facility] Last Admin: 02/20/17 07:50 Dose: 40 mg Hydralazine HCl (Apresoline) 10 mg IVP Q6H PRN PRN Reason: Systolic Blood Pressure Last Admin: 02/17/17 09:53 Dose: 10 mg Hydralazine HCl (Apresoline) 50 mg PO Q6H [facility] Last Admin: 02/20/17 10:53 Dose: 50 mg Hydromorphone HCl (Dilaudid) 0.5 mg IVP Q4H PRN PRN Reason: Pain, moderate (4-7) Last Admin: 02/20/17 14:46 Dose: 0.5 mg Heparin Sodium/Sodium Chloride (Heparin 75964 Units/250ml 1/2 Normal Saline) 25 ,000 units in 250 mls @ 11.975 mls/hr IV .[id number] PRN; Protocol; 12 UNITS/KG/HR PRN Reason: PROTOCOL Last Admin: 02/19/17 09:38 Dose: 12 units/kg/hr, 11.975 mls/hr Sodium Chloride (Sodium Chloride 0.9%) 1,000 mls @ 40 mls/hr IV .Q24H [facility] Insulin Glargine (Lantus) 25 unit SC HS [facility] Last Admin: 02/19/17 21:56 Dose: Not Given Insulin Human Regular (Novolin R) 0 unit SC ACHS [facility] PRN Reason: Protocol Last Admin: 02/20/17 12:00 Dose: Not Given Insulin Human Regular (Novolin R) 8 unit SC ACTID [facility] Last Admin: 02/20/17 12:00 Dose: Not Given Isosorbide Mononitrate (Imdur) 30 mg PO DAILY [facility] Last Admin: 02/20/17 10:07 Dose: 30 mg Metoprolol Tartrate (Lopressor) 50 mg PO BID [facility] Rosuvastatin Calcium (Crestor) 20 mg PO HS [facility] Last Admin: 02/19/17 21:55 Dose: 20 mg - Labs Labs: 02/20/17 07:47 02/20/17 07:47 PT 10.7 SECONDS (9.7-12.2) 02/20/17 07:47 INR 1.0 02/20/17 07:47 APTT 49 SECONDS (21-34) H D 02/20/17 07:47 - Constitutional Appears: Well, No Acute Distress - Head Exam Head Exam: NORMAL INSPECTION, NORMOCEPHALIC - Eye Exam Eye Exam: EOMI, Normal appearance - ENT Exam ENT Exam: Mucous Membranes Moist, Normal Exam - Respiratory Exam Respiratory Exam: Clear to Ausculation Bilateral, NORMAL BREATHING PATTERN - Cardiovascular Exam Cardiovascular Exam: REGULAR RHYTHM, +S1, +S2 - GI/Abdominal Exam GI & Abdominal Exam: Soft, Normal Bowel Sounds - Extremities Exam Extremities Exam: Pedal Edema - Neurological Exam Neurological Exam: Alert, Awake, Oriented x3 - Psychiatric Exam Psychiatric exam: Normal Affect, Normal Mood - Skin Skin Exam: Dry, Normal Color, Warm Assessment and Plan (1) Shortness of breath Assessment & Plan: Secondary to volume overload Dr. Byrnes, cardiology consulted --> help appreciated (Lasix 40 mg IV Q12) * BNP [id number] on admission * O2 via 2L of NC * Xray - venous congestion cardiomegaly * Pending ECHO 02/15/17 * Venous duplex scan (02/16/17): Right: No evidence of deep or superficial vein thrombosis of the right lower extremity. Normal valve function noted of the right side. Left: No evidence of deep or superficial vein thrombosis of the left lower extremity. Normal valve function noted of the left side. * VQ Scan (02/17/17): Low probability ventilation perfusion scan for pulmonary embolism * Daily weight * Monitor ins and outs * Flonase 1 spray NS daily Status: Acute (2) NSTEMI (non-ST elevated myocardial infarction) Assessment & Plan: Dr. Byrnes, cardiology consulted, help appreciated * As per cardiology, a cardiac catherization is recommended. EKG - Q waves [place]-septal leads Trop #1 0.4240, Trop #2 0.4220 * Heparin 25,000 units in 250 mls * Aspirin 81 mg PO daily * Crestor 20mg PO daily HS * Avoid BERENICE/ARB dur to MICAELA for now Status: Acute (3) MICAELA (acute kidney injury) Assessment & Plan: Dialysis Access 02/20/17 * Surgery Consulted, Dr. Rao ---> Help appreciated * Discussed with patient decrease in renal function and the possibility that he may need dialysis * BUN/Cr: (02/18/17): 36/5.7; (02/17/17): 36/5.7; BUN/Cr (02/16/17):36/5.2 (cr was 1.7 one year ago) * Monitor * Renal US (02/16/17): Unremarkable renal sonogram * Urine lytes: Urine protein collected in 24 hours: 03727.0 * Dr. Lincoln, nephrology consulted ---> Help appreciated Status: Acute (4) Hypertension Assessment & Plan: * Uncontrolled * Hydralazine 25mg PO Q8H --->Hydralazine 50mg PO Q6h * Imdur 30mg PO daily * Hydralazine 10mg IVP Q6H PRN if systolic blood pressure is above 160 * Metoprolol Tartrate 25 mg PO BID----> 50mg PO BID (02/20/17) * Monitor Status: Acute (5) History of diabetes mellitus Assessment & Plan: * Lantus 25 U SC HS * Novolin 8 U SC ACTID * ISS * Acuuchecks * HbA1c : 11.0 Status: Acute (6) Prophylactic measure Assessment & Plan: * Heparin 5,000 U SC Q8 stopped on 02/19/17 for Perm Cath procedure on 02/20/17 * No SCDS due to leg edema * Pepcid 20mg PO daily Status: Acute
[2017-02-20] MEDS: Sodium Chloride 0.9% 1,000 ML IV SCH (15:00)
[2017-02-20] MEDS: Heparin25000 units/250ml 1/2NS 25,000 UNITS/250 ML BAG IV PRN (21:08)
[2017-02-20] MEDS: (Lantus) Insulin Glargine, Recombinant SC SCH (21:48)
--- NOTE | 2017-02-21 07:36 | CP.PCM.PN ---
Subjective - Date & Time of Evaluation Date of Evaluation: 02/21/17 Time of Evaluation: 07:00 - Subjective Subjective: Patient seen and examined this morning. Reports no complaints, states he tolerated dialysis well yesterday. Permacatch site examined, no bleeding noted. Dressings are c/d/i. Objective - Vital Signs/Intake and Output Vital Signs (last 24 hours): Temp Pulse Resp BP Pulse Ox 98.3 F 91 H 20 148/91 H 97 02/21/17 04:22 02/21/17 04:22 02/21/17 04:22 02/21/17 05:55 02/21/17 04:22 Intake and Output: 02/21/17 02/21/17 06:59 18:59 Intake Total 460 Output Total 825 Balance -365 - Medications Medications: Current Medications Aspirin (Aspirin Chewable) 81 mg PO DAILY [facility] Last Admin: 02/20/17 10:44 Dose: Not Given Calcium Acetate (Phoslo) 667 mg PO TIDCC [facility] Last Admin: 02/20/17 21:13 Dose: 667 mg Doxazosin Mesylate (Cardura) 4 mg PO DAILY [facility] Last Admin: 02/20/17 10:53 Dose: 4 mg Famotidine (Pepcid) 20 mg PO DAILY [facility] Last Admin: 02/20/17 10:44 Dose: Not Given Fluticasone Propionate (Flonase) 1 spr NS DAILY [facility] Last Admin: 02/20/17 10:55 Dose: Not Given Furosemide (Lasix) 40 mg IVP Q12H [facility] Last Admin: 02/21/17 05:55 Dose: 40 mg Hydralazine HCl (Apresoline) 10 mg IVP Q6H PRN PRN Reason: Systolic Blood Pressure Last Admin: 02/17/17 09:53 Dose: 10 mg Hydralazine HCl (Apresoline) 50 mg PO Q6H [facility] Last Admin: 02/21/17 04:23 Dose: 50 mg Hydromorphone HCl (Dilaudid) 0.5 mg IVP Q4H PRN PRN Reason: Pain, moderate (4-7) Last Admin: 02/20/17 19:22 Dose: 0.5 mg Heparin Sodium/Sodium Chloride (Heparin 03395 Units/250ml 1/2 Normal Saline) 25 ,000 units in 250 mls @ 11.975 mls/hr IV .[id number] PRN; Protocol; 12 UNITS/KG/HR PRN Reason: PROTOCOL Last Admin: 02/20/17 21:08 Dose: 12 units/kg/hr, 11.975 mls/hr Sodium Chloride (Sodium Chloride 0.9%) 1,000 mls @ 40 mls/hr IV .Q24H [facility] Last Admin: 02/20/17 15:00 Dose: 40 mls/hr Insulin Glargine (Lantus) 25 unit SC [facility] Last Admin: 02/20/17 21:48 Dose: Not Given Insulin Human Regular (Novolin R) 0 unit SC ACHS [facility] PRN Reason: Protocol Last Admin: 02/20/17 21:46 Dose: Not Given Insulin Human Regular (Novolin R) 8 unit SC ACTID [facility] Last Admin: 02/20/17 16:30 Dose: Not Given Isosorbide Mononitrate (Imdur) 30 mg PO DAILY [facility] Last Admin: 02/20/17 10:07 Dose: 30 mg Metoprolol Tartrate (Lopressor) 50 mg PO BID [facility] Last Admin: 02/20/17 21:13 Dose: 50 mg Rosuvastatin Calcium (Crestor) 20 mg PO [facility] Last Admin: 02/20/17 21:12 Dose: 20 mg - Labs Labs: 02/20/17 07:47 02/20/17 07:47 PT 10.7 SECONDS (9.7-12.2) 02/20/17 07:47 INR 1.0 02/20/17 07:47 APTT 56 SECONDS (21-34) H D 02/21/17 03:13 - Constitutional Appears: Non-toxic - Eye Exam Eye Exam: Normal appearance - Respiratory Exam Respiratory Exam: NORMAL BREATHING PATTERN - Cardiovascular Exam Cardiovascular Exam: +S1, +S2 - Neurological Exam Neurological Exam: Alert, Awake - Psychiatric Exam Psychiatric exam: Normal Mood - Skin Skin Exam: Dry, Intact, Warm Assessment and Plan - Assessment and Plan (Free Text) Assessment: 41M s/p R IJ Permacath insertion -Monitor for bleeding -Maintain area clean/dry/intact -Further recs per Dr. Luiz Delgadillo PGY-2
[2017-02-21] MEDS: (Novolin R) Insulin Human Regular 100 units/ml vial SC SCH ×7 (08:34→21:23)
[2017-02-21 09:23] LABS: BASO # 0.1 K/uL (0.0-0.2); BASO % 1.1 % (0.0-2.0); EOS % 0.4 % (0.0-4.0); HEMOGLOBIN 11.4 g/dL (12.0-18.0); LYMPH # 2.2 K/uL (1.0-4.3); LYMPH % 22.2 % (20.0-40.0); MEAN CELL VOLUME 87.7 fL (80.0-94.0); MEAN CORPUSCULAR HEMOGLOBIN 27.5 pg (27.0-31.0); MEAN CORPUSCULAR HGB CONC 31.4 g/dL (33.0-37.0); MEAN PLATELET VOLUME 8.9 fL (7.2-11.7); MONO # 0.7 K/uL (0.0-0.8); MONO % 7.4 % (0.0-10.0); NEUT # 6.8 K/uL (1.8-7.0); NEUT % 68.9 % (50.0-75.0); RBC 4.15 Mil/uL (4.40-5.90); RED CELL DISTRIBUTION WIDTH 14.7 % (11.5-14.5); WHITE BLOOD COUNT 9.9 K/uL (4.8-10.8)
[2017-02-21 09:28] LABS: PROTHROMBIN TIME 11.3 SECONDS (9.7-12.2)
[2017-02-21 09:30] LABS: ALBUMIN 2.6 g/dL (3.5-5.0)
[2017-02-21 09:33] LABS: ALB/GLOB RATIO 0.7 (1.0-2.1)
[2017-02-21 09:34] LABS: CALCIUM 8.2 mg/dl (8.6-10.4); MAGNESIUM 2.1 mg/dL (1.6-2.3)
[2017-02-21] MEDS: Fluticasone Nasal 50 mcg/Spray NS SCH (10:14)
--- NOTE | 2017-02-21 10:38 | CP.PCM.PN ---
Subjective - Date & Time of Evaluation Date of Evaluation: 02/21/17 Time of Evaluation: 10:34 - Subjective Subjective: PGY2 progress note for Dr. Byrnes Pt seen and examined at bedside and reports no acute complaints. No acute events overnight as per nursing. He denies CP, SOB, weakness; however he reports that he continues to have a productive cough. Pt received dislysis yesterday and tolerated procedure well. Scheduled for 2nd HD on 02/23/17. Pt was seen by surgery this morning and R IJ line functional and WNL. Objective - Vital Signs/Intake and Output Vital Signs (last 24 hours): Temp Pulse Resp BP Pulse Ox 98.1 F 98 H 18 137/87 94 L 02/21/17 07:40 02/21/17 07:40 02/21/17 07:40 02/21/17 07:40 02/21/17 07:40 Intake and Output: 02/21/17 02/21/17 06:59 18:59 Intake Total 460 Output Total 825 Balance -365 - Medications Medications: Current Medications Aspirin (Aspirin Chewable) 81 mg PO DAILY [facility] Last Admin: 02/21/17 10:13 Dose: 81 mg Calcium Acetate (Phoslo) 667 mg PO TIDCC [facility] Last Admin: 02/21/17 08:50 Dose: 667 mg Doxazosin Mesylate (Cardura) 4 mg PO DAILY [facility] Last Admin: 02/21/17 10:13 Dose: 4 mg Famotidine (Pepcid) 20 mg PO DAILY [facility] Last Admin: 02/21/17 10:13 Dose: 20 mg Fluticasone Propionate (Flonase) 1 spr NS DAILY [facility] Last Admin: 02/21/17 10:14 Dose: 1 spr Furosemide (Lasix) 40 mg IVP Q12H [facility] Last Admin: 02/21/17 05:55 Dose: 40 mg Hydralazine HCl (Apresoline) 10 mg IVP Q6H PRN PRN Reason: Systolic Blood Pressure Last Admin: 02/17/17 09:53 Dose: 10 mg Hydralazine HCl (Apresoline) 50 mg PO Q6H [facility] Last Admin: 02/21/17 10:13 Dose: 50 mg Hydromorphone HCl (Dilaudid) 0.5 mg IVP Q4H PRN PRN Reason: Pain, moderate (4-7) Last Admin: 02/20/17 19:22 Dose: 0.5 mg Heparin Sodium/Sodium Chloride (Heparin 27307 Units/250ml 1/2 Normal Saline) 25 ,000 units in 250 mls @ 11.975 mls/hr IV .[id number] PRN; Protocol; 12 UNITS/KG/HR PRN Reason: PROTOCOL Last Admin: 02/20/17 21:08 Dose: 12 units/kg/hr, 11.975 mls/hr Sodium Chloride (Sodium Chloride 0.9%) 1,000 mls @ 40 mls/hr IV .Q24H [facility] Last Admin: 02/20/17 15:00 Dose: 40 mls/hr Insulin Glargine (Lantus) 25 unit SC [facility] Last Admin: 02/20/17 21:48 Dose: Not Given Insulin Human Regular (Novolin R) 0 unit SC ACHS [facility] PRN Reason: Protocol Last Admin: 02/21/17 08:35 Dose: 2 unit Insulin Human Regular (Novolin R) 8 unit SC ACTID [facility] Last Admin: 02/21/17 08:34 Dose: 8 unit Isosorbide Mononitrate (Imdur) 30 mg PO DAILY [facility] Last Admin: 02/21/17 10:13 Dose: 30 mg Metoprolol Tartrate (Lopressor) 50 mg PO BID [facility] Last Admin: 02/20/17 21:13 Dose: 50 mg Rosuvastatin Calcium (Crestor) 20 mg PO [facility] Last Admin: 02/20/17 21:12 Dose: 20 mg - Labs Labs: 02/21/17 09:14 02/21/17 09:22 PT 11.3 SECONDS (9.7-12.2) 02/21/17 09:14 INR 1.0 02/21/17 09:14 APTT 51 SECONDS (21-34) H D 02/21/17 09:14 - Constitutional Appears: No Acute Distress - Head Exam Head Exam: ATRAUMATIC - Eye Exam Eye Exam: EOMI - ENT Exam ENT Exam: Mucous Membranes Dry - Neck Exam Additional comments: R I/J line in place- no acute changes appreciated - Respiratory Exam Respiratory Exam: Clear to Ausculation Bilateral. absent: Chest Wall Tenderness , Rhonchi, Wheezes - Cardiovascular Exam Cardiovascular Exam: REGULAR RHYTHM, +S1, +S2 - GI/Abdominal Exam GI & Abdominal Exam: Soft, Normal Bowel Sounds. absent: Distended, Tenderness - Extremities Exam Extremities Exam: Pedal Edema. absent: Calf Tenderness Additional comments: very mild pedal edema - Neurological Exam Neurological Exam: Alert, Awake, Oriented x3 - Skin Skin Exam: Dry, Warm Assessment and Plan - Assessment and Plan (Free Text) Assessment: 41 y/o male w/ hx of HTN and DM p/w NSTEMI Plan: NSTEMI Awaiting cardiac cath and further recommendations to follow EKG - Q waves [place]-septal leads Trop #1 0.4240, #2 0.4220, #3 0.3050, #4 0.2170 Heparin 25,000 units in 250 mls Aspirin 81 mg PO daily Crestor 20mg PO daily HS Avoid BERENICE/ARB dur to MICAELA for now HTN Uncontrolled Hydralazine 50mg PO Q6h Imdur 30mg PO daily Hydralazine 10mg IVP Q6H PRN if systolic blood pressure is above 160 Metoprolol Tartrate 50 mg PO BID Pt received R IJ line for dialysis and tolerated dialysis yesterday. Next HD on 02/23/17
--- NOTE | 2017-02-21 11:28 | CP.PCM.PN ---
Subjective - Date & Time of Evaluation Date of Evaluation: 02/21/17 Time of Evaluation: 11:26 - Subjective Subjective: Feels sl better No c/o CP or dyspnea s/p first HD 02/19- tolerated well no n, v, diarrhea , dysuria Awaiting cardiac cath Objective - Vital Signs/Intake and Output Vital Signs (last 24 hours): Temp Pulse Resp BP Pulse Ox 98.1 F 98 H 18 137/87 94 L 02/21/17 07:40 02/21/17 07:40 02/21/17 07:40 02/21/17 07:40 02/21/17 07:40 Intake and Output: 02/21/17 02/21/17 06:59 18:59 Intake Total 460 Output Total 825 Balance -365 - Medications Medications: Current Medications Aspirin (Aspirin Chewable) 81 mg PO DAILY [facility] Last Admin: 02/21/17 10:13 Dose: 81 mg Benzonatate (Tessalon Perles) 100 mg PO TID [facility] Calcium Acetate (Phoslo) 667 mg PO TIDCC [facility] Last Admin: 02/21/17 08:50 Dose: 667 mg Doxazosin Mesylate (Cardura) 4 mg PO DAILY [facility] Last Admin: 02/21/17 10:13 Dose: 4 mg Famotidine (Pepcid) 20 mg PO DAILY [facility] Last Admin: 02/21/17 10:13 Dose: 20 mg Fluticasone Propionate (Flonase) 1 spr NS DAILY [facility] Last Admin: 02/21/17 10:14 Dose: 1 spr Furosemide (Lasix) 40 mg IVP Q12H [facility] Last Admin: 02/21/17 05:55 Dose: 40 mg Hydralazine HCl (Apresoline) 10 mg IVP Q6H PRN PRN Reason: Systolic Blood Pressure Last Admin: 02/17/17 09:53 Dose: 10 mg Hydralazine HCl (Apresoline) 50 mg PO Q6H [facility] Last Admin: 02/21/17 10:13 Dose: 50 mg Hydromorphone HCl (Dilaudid) 0.5 mg IVP Q4H PRN PRN Reason: Pain, moderate (4-7) Last Admin: 02/20/17 19:22 Dose: 0.5 mg Heparin Sodium/Sodium Chloride (Heparin 49732 Units/250ml 1/2 Normal Saline) 25 ,000 units in 250 mls @ 11.975 mls/hr IV .[id number] PRN; Protocol; 12 UNITS/KG/HR PRN Reason: PROTOCOL Last Admin: 02/20/17 21:08 Dose: 12 units/kg/hr, 11.975 mls/hr Sodium Chloride (Sodium Chloride 0.9%) 1,000 mls @ 40 mls/hr IV .Q24H [facility] Last Admin: 02/20/17 15:00 Dose: 40 mls/hr Insulin Glargine (Lantus) 25 unit SC [facility] Last Admin: 02/20/17 21:48 Dose: Not Given Insulin Human Regular (Novolin R) 0 unit SC ACHS [facility] PRN Reason: Protocol Last Admin: 02/21/17 08:35 Dose: 2 unit Insulin Human Regular (Novolin R) 8 unit SC ACTID [facility] Last Admin: 02/21/17 08:34 Dose: 8 unit Isosorbide Mononitrate (Imdur) 30 mg PO DAILY [facility] Last Admin: 02/21/17 10:13 Dose: 30 mg Metoprolol Tartrate (Lopressor) 50 mg PO BID [facility] Last Admin: 02/21/17 10:13 Dose: 50 mg Rosuvastatin Calcium (Crestor) 20 mg PO [facility] Last Admin: 02/20/17 21:12 Dose: 20 mg - Labs Labs: 02/21/17 09:14 02/21/17 09:22 PT 11.3 SECONDS (9.7-12.2) 02/21/17 09:14 INR 1.0 02/21/17 09:14 APTT 51 SECONDS (21-34) H D 02/21/17 09:14 - Constitutional Appears: No Acute Distress, Chronically Ill - Head Exam Head Exam: ATRAUMATIC, NORMAL INSPECTION - Eye Exam Eye Exam: EOMI, Normal appearance - Neck Exam Neck Exam: Normal Inspection. absent: Tenderness - Respiratory Exam Respiratory Exam: Clear to Ausculation Bilateral, NORMAL BREATHING PATTERN - Cardiovascular Exam Cardiovascular Exam: REGULAR RHYTHM, +S1 - GI/Abdominal Exam GI & Abdominal Exam: Soft. absent: Tenderness - Extremities Exam Extremities Exam: Normal Inspection. 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
--- NOTE | 2017-02-21 12:47 | CP.PCM.PN ---
<Brea Coombs - Last Filed: 02/21/17 16:01> Subjective - Date & Time of Evaluation Date of Evaluation: 02/21/17 Time of Evaluation: 12:47 - Subjective Subjective: Medicine Progress Note- Dr. Bahena Service Patient was seen and examined at bedside in no acute distress. Patient reports feeling better today. He states he has a little white phlegm and sinus congestion, but no shortness of breath. Patient denies chest pain, abdominal pain, nausea, dizziness, vomiting, fever, and chills. Objective - Vital Signs/Intake and Output Vital Signs (last 24 hours): Temp Pulse Resp BP Pulse Ox 98.1 F 98 H 18 137/87 94 L 02/21/17 07:40 02/21/17 07:40 02/21/17 07:40 02/21/17 07:40 02/21/17 07:40 Intake and Output: 02/21/17 02/21/17 06:59 18:59 Intake Total 460 Output Total 825 Balance -365 - Medications Medications: Current Medications Aspirin (Aspirin Chewable) 81 mg PO DAILY [facility] Last Admin: 02/21/17 10:13 Dose: 81 mg Benzonatate (Tessalon Perles) 100 mg PO TID [facility] Calcium Acetate (Phoslo) 667 mg PO TIDCC [facility] Last Admin: 02/21/17 12:07 Dose: Not Given Doxazosin Mesylate (Cardura) 4 mg PO DAILY [facility] Last Admin: 02/21/17 10:13 Dose: 4 mg Famotidine (Pepcid) 20 mg PO DAILY [facility] Last Admin: 02/21/17 10:13 Dose: 20 mg Fluticasone Propionate (Flonase) 1 spr NS DAILY [facility] Last Admin: 02/21/17 10:14 Dose: 1 spr Furosemide (Lasix) 40 mg IVP Q12H [facility] Last Admin: 02/21/17 05:55 Dose: 40 mg Hydralazine HCl (Apresoline) 10 mg IVP Q6H PRN PRN Reason: Systolic Blood Pressure Last Admin: 02/17/17 09:53 Dose: 10 mg Hydralazine HCl (Apresoline) 50 mg PO Q6H [facility] Last Admin: 02/21/17 10:13 Dose: 50 mg Hydromorphone HCl (Dilaudid) 0.5 mg IVP Q4H PRN PRN Reason: Pain, moderate (4-7) Last Admin: 02/20/17 19:22 Dose: 0.5 mg Heparin Sodium/Sodium Chloride (Heparin 67145 Units/250ml 1/2 Normal Saline) 25 ,000 units in 250 mls @ 11.975 mls/hr IV .[id number] PRN; Protocol; 12 UNITS/KG/HR PRN Reason: PROTOCOL Last Admin: 02/20/17 21:08 Dose: 12 units/kg/hr, 11.975 mls/hr Sodium Chloride (Sodium Chloride 0.9%) 1,000 mls @ 40 mls/hr IV .Q24H [facility] Last Admin: 02/20/17 15:00 Dose: 40 mls/hr Insulin Glargine (Lantus) 25 unit SC [facility] Last Admin: 02/20/17 21:48 Dose: Not Given Insulin Human Regular (Novolin R) 0 unit SC ACHS [facility] PRN Reason: Protocol Last Admin: 02/21/17 12:06 Dose: Not Given Insulin Human Regular (Novolin R) 8 unit SC ACTID [facility] Last Admin: 02/21/17 12:07 Dose: Not Given Isosorbide Mononitrate (Imdur) 30 mg PO DAILY [facility] Last Admin: 02/21/17 10:13 Dose: 30 mg Metoprolol Tartrate (Lopressor) 50 mg PO BID [facility] Last Admin: 02/21/17 10:13 Dose: 50 mg Rosuvastatin Calcium (Crestor) 10 mg PO [facility] - Labs Labs: 02/21/17 09:14 02/21/17 09:22 PT 11.3 SECONDS (9.7-12.2) 02/21/17 09:14 INR 1.0 02/21/17 09:14 APTT 51 SECONDS (21-34) H D 02/21/17 09:14 - Constitutional Appears: No Acute Distress - Head Exam Head Exam: NORMAL INSPECTION, NORMOCEPHALIC - Eye Exam Eye Exam: EOMI - ENT Exam ENT Exam: Mucous Membranes Moist - Neck Exam Neck Exam: Normal Inspection - Respiratory Exam Respiratory Exam: Clear to Ausculation Bilateral, NORMAL BREATHING PATTERN - Cardiovascular Exam Cardiovascular Exam: REGULAR RHYTHM, +S1, +S2 - GI/Abdominal Exam GI & Abdominal Exam: Soft, Normal Bowel Sounds. absent: Tenderness - Extremities Exam Extremities Exam: Pedal Edema. absent: Tenderness - Neurological Exam Neurological Exam: Alert, Awake, Oriented x3 - Psychiatric Exam Psychiatric exam: Normal Affect, Normal Mood - Skin Skin Exam: Dry, Intact, Normal Color, Warm Assessment and Plan (1) Shortness of breath Assessment & Plan: Secondary to volume overload Dr. Byrnes, cardiology consulted --> help appreciated (Lasix 40 mg IV Q12) * BNP [id number] on admission * O2 via 2L of NC * Xray - venous congestion cardiomegaly * Repeat Xray on 02/21/17: pulmonary venous congestion and redistribution and bilateral pleural effusions, larger on the left with compressive atelectasis/ pneumonia. * Pending ECHO results from 02/15/17 * Venous duplex scan (02/16/17): Right: No evidence of deep or superficial vein thrombosis of the right lower extremity. Normal valve function noted of the right side. Left: No evidence of deep or superficial vein thrombosis of the left lower extremity. Normal valve function noted of the left side. * VQ Scan (02/17/17): Low probability ventilation perfusion scan for pulmonary embolism * Daily weight * Monitor ins and outs * Flonase 1 spray NS daily Status: Acute (2) Diabetes mellitus Assessment & Plan: * Lantus 25 U SC HS * Novolin 8 U SC ACTID * ISS * Acuuchecks * HbA1c : 11.0 Status: Acute (3) MICAELA (acute kidney injury) Assessment & Plan: Dialysis Access 02/20/17 * Surgery Consulted, Dr. Rao ---> Help appreciated * Discussed with patient decrease in renal function and the possibility that he may need dialysis * BUN/Cr: (02/21/17) 31/5; BUN/Cr (02/18/17): 36/5.7; (02/17/17): 36/5.7; BUN/Cr ():36/5.2 (cr was 1.7 one year ago) * Monitor * Renal US (02/16/17): Unremarkable renal sonogram * Urine lytes: Urine protein collected in 24 hours: 55839.0 * Dr. Lincoln, nephrology consulted ---> Help appreciated Status: Acute (4) NSTEMI (non-ST elevated myocardial infarction) Assessment & Plan: Dr. Byrnes, cardiology consulted, help appreciated * As per cardiology, a cardiac catherization is recommended. * Catheterization is scheduled for 02/23/17 EKG - Q waves [place]-septal leads Trop #1 0.4240, Trop #2 0.4220 * Heparin 25,000 units in 250 mls * Aspirin 81 mg PO daily * Crestor 10mg PO daily HS (decreased from 20mg PO daily) * Avoid BERENICE/ARB dur to MICAELA for now Status: Acute (5) Hypertension Assessment & Plan: * Uncontrolled * Hydralazine 25mg PO Q8H --->Hydralazine 50mg PO Q6h * Imdur 30mg PO daily * Hydralazine 10mg IVP Q6H PRN if systolic blood pressure is above 160 * Metoprolol Tartrate 25 mg PO BID----> 50mg PO BID (02/20/17) * Monitor Status: Acute (6) Cough Assessment & Plan: R/O pneumonia Chest Xray on 02/21/17: pulmonary venous congestion and redistribution and bilateral pleural effusions, larger on the left with compressive atelectasis/ pneumonia. Tessalon Perles 100mg PO TID Status: Acute (7) Prophylactic measure Assessment & Plan: * Heparin 5,000 U SC Q8 stopped on 02/19/17 for Perm Cath procedure on 02/20/17 * No SCDS due to leg edema * Pepcid 20mg PO daily Status: Acute <Marilyn Bahena V - Last Filed: 02/21/17 23:30> Objective - Vital Signs/Intake and Output Vital Signs (last 24 hours): Temp Pulse Resp BP Pulse Ox 98.5 F 92 H 18 131/83 95 02/21/17 15:34 02/21/17 22:09 02/21/17 15:34 02/21/17 22:09 02/21/17 15:34 Intake and Output: 02/21/17 02/22/17 18:59 06:59 Intake Total 250 350 Output Total 450 Balance 250 -100 - Medications Medications: Current Medications Aspirin (Aspirin Chewable) 81 mg PO DAILY [facility] Last Admin: 02/21/17 10:13 Dose: 81 mg Benzonatate (Tessalon Perles) 100 mg PO TID [facility] Last Admin: 07/03/17 18:01 Dose: 100 mg Calcium Acetate (Phoslo) 667 mg PO TIDCC [facility] Last Admin: 02/21/17 17:20 Dose: 667 mg Doxazosin Mesylate (Cardura) 4 mg PO DAILY [facility] Last Admin: 02/21/17 10:13 Dose: 4 mg Famotidine (Pepcid) 20 mg PO DAILY [facility] Last Admin: 02/21/17 10:13 Dose: 20 mg Fluticasone Propionate (Flonase) 1 spr NS DAILY [facility] Last Admin: 02/21/17 10:14 Dose: 1 spr Furosemide (Lasix) 40 mg IVP Q12H [facility] Last Admin: 02/21/17 17:21 Dose: Not Given Hydralazine HCl (Apresoline) 10 mg IVP Q6H PRN PRN Reason: Systolic Blood Pressure Last Admin: 02/17/17 09:53 Dose: 10 mg Hydralazine HCl (Apresoline) 50 mg PO Q6H [facility] Last Admin: 02/21/17 22:08 Dose: 50 mg Hydromorphone HCl (Dilaudid) 0.5 mg IVP Q4H PRN PRN Reason: Pain, moderate (4-7) Last Admin: 02/20/17 19:22 Dose: 0.5 mg Heparin Sodium/Sodium Chloride (Heparin 93034 Units/250ml 1/2 Normal Saline) 25 ,000 units in 250 mls @ 11.975 mls/hr IV .[id number] PRN; Protocol; 12 UNITS/KG/HR PRN Reason: PROTOCOL Last Admin: 02/21/17 19:18 Dose: 12 units/kg/hr, 11.975 mls/hr Insulin Glargine (Lantus) 25 unit SC HS [facility] Last Admin: 02/21/17 22:08 Dose: 25 u Insulin Human Regular (Novolin R) 0 unit SC ACHS [facility] PRN Reason: Protocol Last Admin: 02/21/17 21:23 Dose: Not Given Insulin Human Regular (Novolin R) 8 unit SC ACTID [facility] Last Admin: 02/21/17 17:19 Dose: 8 unit Isosorbide Mononitrate (Imdur) 30 mg PO DAILY [facility] Last Admin: 02/21/17 10:13 Dose: 30 mg Metoprolol Tartrate (Lopressor) 50 mg PO BID [facility] Last Admin: 02/21/17 18:44 Dose: Not Given Rosuvastatin Calcium (Crestor) 10 mg PO HS [facility] Last Admin: 02/21/17 22:08 Dose: 10 mg - Labs Labs: 02/21/17 09:14 02/21/17 09:22 PT 11.3 SECONDS (9.7-12.2) 02/21/17 09:14 INR 1.0 02/21/17 09:14 APTT 51 SECONDS (21-34) H D 02/21/17 09:14 Attending/Attestation - Attestation I have personally seen and examined this patient.: Yes I have fully participated in the care of the patient.: Yes I have reviewed all pertinent clinical information, including history, physical exam and plan: Yes Notes (Text): Patient seen, examined, and case discussed with day-time social media intern. Patient completed Permacath insertion by vascular surgery and tolerated first dialysis on 02/19/17; next dialysis on 02/23/17. Patient to be evaluated by Dr Lynn, per Dr. Byrnes for possible cardiac catherization. Unknown date and time if cardiac cath to take place but will evaluate the patient. Patient is reporting productive cough. Repeat chest xray shows more prominent congestion and possible pneumonia. Will start IV antibiotic to cover for pneumonia. Patient is currently on Heparin drip Patient is pending official echocardiogram report..
[2017-02-21] MEDS: Sodium Chloride 0.9% 1,000 ML IV SCH ×2 (13:10→19:20)
--- NOTE | 2017-02-21 14:06 | RAD ---
PROCEDURE: CHEST RADIOGRAPH, 1 VIEW HISTORY: pre-op COMPARISON: 02/18/2017. FINDINGS: The right-sided dialysis catheter terminates in the right atrium. LUNGS: There is pulmonary venous congestion and redistribution. There is bibasilar airspace disease, worse on the left. PLEURA: There are layering moderate pleural effusions, larger on the left. CARDIOVASCULAR: Normal. OSSEOUS STRUCTURES: No significant abnormalities. VISUALIZED UPPER ABDOMEN: Normal. OTHER FINDINGS: None. IMPRESSION: Pulmonary venous congestion and redistribution and bilateral pleural effusions, larger on the left with compressive atelectasis/pneumonia.
[2017-02-21] MEDS: Heparin25000 units/250ml 1/2NS 25,000 UNITS/250 ML BAG IV PRN (19:18)
[2017-02-21] MEDS: (Lantus) Insulin Glargine, Recombinant SC SCH (22:08)
[2017-02-22] MEDS: Moxifloxacin IV 400mg/250ml NS 400 MG/250 ML BAG IVPB SCH ×2 (01:21→01:25)
--- NOTE | 2017-02-22 06:47 | CP.PCM.PN ---
<Marilyn Bahena V - Last Filed: 02/22/17 16:44> Objective - Vital Signs/Intake and Output Vital Signs (last 24 hours): Temp Pulse Resp BP Pulse Ox 98.6 F 88 18 145/86 99 02/22/17 09:20 02/22/17 12:20 02/22/17 12:20 02/22/17 12:20 02/22/17 12:20 Intake and Output: 02/22/17 02/22/17 06:59 18:59 Intake Total 350 538 Output Total 450 Balance -100 538 - Medications Medications: Current Medications Aspirin (Aspirin Chewable) 81 mg PO DAILY [facility] Last Admin: 02/22/17 10:09 Dose: Not Given Benzonatate (Tessalon Perles) 100 mg PO TID [facility] Last Admin: 02/22/17 13:33 Dose: 100 mg Calcium Acetate (Phoslo) 667 mg PO TIDCC [facility] Last Admin: 02/22/17 13:36 Dose: 667 mg Doxazosin Mesylate (Cardura) 4 mg PO DAILY [facility] Last Admin: 02/22/17 10:09 Dose: Not Given Famotidine (Pepcid) 20 mg PO DAILY [facility] Last Admin: 02/22/17 10:09 Dose: Not Given Fluticasone Propionate (Flonase) 1 spr NS DAILY [facility] Last Admin: 02/22/17 10:09 Dose: Not Given Furosemide (Lasix) 40 mg IVP Q12H [facility] Last Admin: 02/22/17 05:58 Dose: 40 mg Hydralazine HCl (Apresoline) 10 mg IVP Q6H PRN PRN Reason: Systolic Blood Pressure Last Admin: 02/17/17 09:53 Dose: 10 mg Hydralazine HCl (Apresoline) 50 mg PO Q6H [facility] Last Admin: 02/22/17 10:08 Dose: Not Given Hydromorphone HCl (Dilaudid) 0.5 mg IVP Q4H PRN PRN Reason: Pain, moderate (4-7) Last Admin: 02/20/17 19:22 Dose: 0.5 mg Heparin Sodium/Sodium Chloride (Heparin 56793 Units/250ml 1/2 Normal Saline) 25 ,000 units in 250 mls @ 11.975 mls/hr IV .[id number] PRN; Protocol; 12 UNITS/KG/HR PRN Reason: PROTOCOL Last Admin: 02/21/17 19:18 Dose: 12 units/kg/hr, 11.975 mls/hr Moxifloxacin HCl (Avelox Iv 400mg/250ml Ns) 400 mg in 250 mls @ 167 mls/hr IVPB Q24H [facility] Last Admin: 02/22/17 01:21 Dose: 167 mls/hr Insulin Glargine (Lantus) 25 unit SC [facility] Last Admin: 02/21/17 22:08 Dose: 25 u Insulin Human Regular (Novolin R) 0 unit SC ACHS [facility] PRN Reason: Protocol Last Admin: 02/22/17 12:30 Dose: Not Given Insulin Human Regular (Novolin R) 8 unit SC ACTID [facility] Last Admin: 02/22/17 11:30 Dose: Not Given Isosorbide Mononitrate (Imdur) 30 mg PO DAILY [facility] Last Admin: 02/22/17 10:09 Dose: Not Given Metoprolol Tartrate (Lopressor) 50 mg PO BID [facility] Last Admin: 02/22/17 10:09 Dose: Not Given Rosuvastatin Calcium (Crestor) 10 mg PO [facility] Last Admin: 02/21/17 22:08 Dose: 10 mg Saccharomyces Boulardii (Florastor) 250 mg PO BID [facility] Last Admin: 02/22/17 10:09 Dose: Not Given - Labs Labs: 02/22/17 08:10 02/22/17 08:10 PT 11.3 SECONDS (9.7-12.2) 02/21/17 09:14 INR 1.0 02/21/17 09:14 APTT 52 SECONDS (21-34) H 02/22/17 08:10 Attending/Attestation - Attestation I have personally seen and examined this patient.: Yes I have fully participated in the care of the patient.: Yes I have reviewed all pertinent clinical information, including history, physical exam and plan: Yes Notes (Text): Patient seen, examined and case discussed with day-time resident. Patient seen post dialysis today. Patient started on Avelox 400mg IV q daily (active since 02/22/17) to cover for pneumonia given chest xray from yesterday Discussed with Dr. Lynn (associate art director), patient is going for cardiac catherization. NPO order. Heparin drip to be held in the morning. Will give 1/2 Lantus dose tonight prior to procedure in the AM 1.) Congestive Heart Failure Exacerbation * Dr. Byrnes, cardiology consulted --> help appreciatedLasix 40 mg IV Q12 * O2 via 2L of NC * Xray - venous congestion cardiomegaly * f/u ECHO 02/15/17 * Aspirin 81 mg PO daily * Lopressor 50mg PO bid * Imdur 30mg PO daily * Doxazosin 4mg PO daily * Crestor 10mg PO daily HS * Avoid BERENICE/ARB dur to MICAELA for now * Venous duplex scan (02/16/17): Right: No evidence of deep or superficial vein thrombosis of the right lower extremity. Normal valve function noted of the right side. Left: No evidence of deep or superficial vein thrombosis of the left lower extremity. Normal valve function noted of the left side. * VQ Scan (02/17/17): Low probability ventilation perfusion scan for pulmonary embolism * Patient will NPO after midnight for cardiac cath in AM. 2.) NSTEMI * Dr. Byrnes, cardiology consulted --> help appreciated * Aspirin 81 mg PO daily * Lopressor 50mg PO bid * Imdur 30mg PO daily * Doxazosin 4mg PO daily * Lasix 40mg IVP Q12 * Crestor 10mg PO daily HS * Avoid BERENICE/ARB dur to MICAELA for now * Daily weights/monitor ins/outs * EKG x2- T-wave inversion Anterior-Lateral leads (possibly an old ND) * Trop #1 0.4240, Trop #2 0.3050, Trop #3 0.2170 * BNP [id number] 3.) Acute Renal Insufficiency * Surgery Consulted, Dr. Rao ---> Help appreciated * Nephrology consulted, Dr. Lee--->help appreciated * Patient has completed two sessions of dialysis (02/19; 02/23) * Renal US (02/16/17): Unremarkable renal sonogram * Avoid BERENICE/ARB dur to MICAELA for now * Possible nephrotic syndrome 4.) History of Hypertension * Imdur 30mg PO daily * Doxazosin 4mg PO daily * Lasix 40mg IVP Q12 5.) History of Diabetes * Lantus 25 U SC HS--->prior to procedure will receive 1/2 dose tonight * Novolin 8 U SC ACTID * ISS * Acuchecks QAC and HS * Hgba1c: 11 6.) Hypokalemia * Resolved 7.) Prophylactic Measures * Heparin Drip; hold in the AM * No SCDS due to leg edema * pepcid 20mg PO daily <Brea Coombs - Last Filed: 02/22/17 17:46> Subjective - Date & Time of Evaluation Date of Evaluation: 02/22/17 Time of Evaluation: 06:47 - Subjective Subjective: Medicine Progress Note- Dr. Bahena Service Patient was seen and examined at bedside in no acute distress. Patient states he still has a cough with white phelgm but its improving. He feels short of breath sometimes and weak. He also reports having leg pain and a little headache. Patient states he has daily bowel movements. Patient denies chest pain , palpitations, nausea, vomiting, dizziness, and abdominal pain. Objective - Vital Signs/Intake and Output Vital Signs (last 24 hours): Temp Pulse Resp BP Pulse Ox 98.0 F 87 20 150/97 H 95 02/22/17 04:00 02/22/17 05:17 02/22/17 04:00 02/22/17 05:58 02/22/17 04:00 Intake and Output: 02/21/17 02/22/17 18:59 06:59 Intake Total 250 350 Output Total 450 Balance 250 -100 - Medications Medications: Current Medications Aspirin (Aspirin Chewable) 81 mg PO DAILY [facility] Last Admin: 02/21/17 10:13 Dose: 81 mg Benzonatate (Tessalon Perles) 100 mg PO TID [facility] Last Admin: 02/21/17 18:01 Dose: 100 mg Calcium Acetate (Phoslo) 667 mg PO TIDCC [facility] Last Admin: 02/21/17 17:20 Dose: 667 mg Doxazosin Mesylate (Cardura) 4 mg PO DAILY [facility] Last Admin: 02/21/17 10:13 Dose: 4 mg Famotidine (Pepcid) 20 mg PO DAILY [facility] Last Admin: 02/21/17 10:13 Dose: 20 mg Fluticasone Propionate (Flonase) 1 spr NS DAILY [facility] Last Admin: 02/21/17 10:14 Dose: 1 spr Furosemide (Lasix) 40 mg IVP Q12H [facility] Last Admin: 02/22/17 05:58 Dose: 40 mg Hydralazine HCl (Apresoline) 10 mg IVP Q6H PRN PRN Reason: Systolic Blood Pressure Last Admin: 02/17/17 09:53 Dose: 10 mg Hydralazine HCl (Apresoline) 50 mg PO Q6H [facility] Last Admin: 02/22/17 04:55 Dose: 50 mg Hydromorphone HCl (Dilaudid) 0.5 mg IVP Q4H PRN PRN Reason: Pain, moderate (4-7) Last Admin: 02/20/17 19:22 Dose: 0.5 mg Heparin Sodium/Sodium Chloride (Heparin 79038 Units/250ml 1/2 Normal Saline) 25 ,000 units in 250 mls @ 11.975 mls/hr IV .[id number] PRN; Protocol; 12 UNITS/KG/HR PRN Reason: PROTOCOL Last Admin: 02/21/17 19:18 Dose: 12 units/kg/hr, 11.975 mls/hr Moxifloxacin HCl (Avelox Iv 400mg/250ml Ns) 400 mg in 250 mls @ 167 mls/hr IVPB Q24H [facility] Last Admin: 02/22/17 01:21 Dose: 167 mls/hr Insulin Glargine (Lantus) 25 unit SC [facility] Last Admin: 02/21/17 22:08 Dose: 25 u Insulin Human Regular (Novolin R) 0 unit SC ACHS [facility] PRN Reason: Protocol Last Admin: 02/21/17 21:23 Dose: Not Given Insulin Human Regular (Novolin R) 8 unit SC ACTID [facility] Last Admin: 02/21/17 17:19 Dose: 8 unit Isosorbide Mononitrate (Imdur) 30 mg PO DAILY [facility] Last Admin: 02/21/17 10:13 Dose: 30 mg Metoprolol Tartrate (Lopressor) 50 mg PO BID [facility] Last Admin: 02/21/17 18:44 Dose: Not Given Rosuvastatin Calcium (Crestor) 10 mg PO HS [facility] Last Admin: 02/21/17 22:08 Dose: 10 mg Saccharomyces Boulardii (Florastor) 250 mg PO BID [facility] - Labs Labs: 02/21/17 09:14 02/21/17 09:22 PT 11.3 SECONDS (9.7-12.2) 02/21/17 09:14 INR 1.0 02/21/17 09:14 APTT 51 SECONDS (21-34) H D 02/21/17 09:14 - Constitutional Appears: No Acute Distress - Head Exam Head Exam: NORMAL INSPECTION, NORMOCEPHALIC - Eye Exam Eye Exam: EOMI, Normal appearance - ENT Exam ENT Exam: Mucous Membranes Moist - Neck Exam Neck Exam: Normal Inspection - Respiratory Exam Respiratory Exam: Clear to Ausculation Bilateral, NORMAL BREATHING PATTERN - Cardiovascular Exam Cardiovascular Exam: REGULAR RHYTHM, +S1, +S2 - GI/Abdominal Exam GI & Abdominal Exam: Soft, Tenderness (w/palpations of RUQ), Normal Bowel Sounds - Extremities Exam Extremities Exam: Pedal Edema, Tenderness. absent: Calf Tenderness - Neurological Exam Neurological Exam: Alert, Awake, Oriented x3 - Psychiatric Exam Psychiatric exam: Normal Affect, Normal Mood - Skin Skin Exam: Dry, Intact, Normal Color, Warm Assessment and Plan (1) Shortness of breath Assessment & Plan: Secondary to volume overload Dr. Byrnes, cardiology consulted --> help appreciated (Lasix 40 mg IV Q12) * BNP [id number] on admission * O2 via 2L of NC * Xray - venous congestion cardiomegaly * Repeat Xray on 02/21/17: pulmonary venous congestion and redistribution and bilateral pleural effusions, larger on the left with compressive atelectasis/ pneumonia. * Pending ECHO results from 02/15/17 * Venous duplex scan (02/16/17): Right: No evidence of deep or superficial vein thrombosis of the right lower extremity. Normal valve function noted of the right side. Left: No evidence of deep or superficial vein thrombosis of the left lower extremity. Normal valve function noted of the left side. * VQ Scan (02/17/17): Low probability ventilation perfusion scan for pulmonary embolism * Daily weight * Monitor ins and outs * Flonase 1 spray NS daily Status: Acute (2) Diabetes mellitus Assessment & Plan: * Lantus 25 U SC HS--> decreased to 12units pre-catheterization * Novolin 8 U SC ACTID * ISS * Acuuchecks * HbA1c : 11.0 Status: Acute (3) MICAELA (acute kidney injury) Assessment & Plan: Dialysis Access 02/20/17 * Surgery Consulted, Dr. Rao ---> Help appreciated * Discussed with patient decrease in renal function and the possibility that he may need dialysis * BUN/Cr: (02/22/17) 38/5.6; BUN/Cr: (02/21/17) 31/5; BUN/Cr (02/18/17): 36/5.7; (): 36/5.7; BUN/Cr (02/16/17):36/5.2 (cr was 1.7 one year ago) * Monitor * Renal US (02/16/17): Unremarkable renal sonogram * Urine lytes: Urine protein collected in 24 hours: 83748.0 * Dr. Lincoln, nephrology consulted ---> Help appreciated Status: Acute (4) NSTEMI (non-ST elevated myocardial infarction) Assessment & Plan: Dr. Byrnes, cardiology consulted, help appreciated * As per cardiology, a cardiac catherization is recommended. * Catheterization is scheduled for 02/23/17, with Dr. Lynn * NPO after midnight EKG - Q waves [place]-septal leads Trop #1 0.4240, Trop #2 0.4220 * Heparin 25,000 units in 250 mls- HOLD after 7am 02/23/17 * Aspirin 81 mg PO daily * Crestor 10mg PO daily HS (decreased from 20mg PO daily) * Avoid BERENICE/ARB dur to MICAELA for now Status: Acute (5) Hypertension Assessment & Plan: * Uncontrolled * Hydralazine 25mg PO Q8H --->Hydralazine 50mg PO Q6h * Imdur 30mg PO daily * Hydralazine 10mg IVP Q6H PRN if systolic blood pressure is above 160 * Metoprolol Tartrate 25 mg PO BID----> 50mg PO BID (02/20/17) * Monitor Status: Acute (6) Cough Assessment & Plan: R/O pneumonia Chest Xray on 02/21/17: pulmonary venous congestion and redistribution and bilateral pleural effusions, larger on the left with compressive atelectasis/ pneumonia. Tessalon Perles 100mg PO TID Started Avelox 400mg IV Q24 Strep pneumo (urine): F/U Legionella (urine): F/U Mycoplasma IgM: F/U Status: Acute (7) Prophylactic measure Assessment & Plan: * Heparin Drip- HOLD on 02/23/17 for Cath procedure on 02/23/17 * No SCDS due to leg edema * Pepcid 20mg PO daily Status: Acute
[2017-02-22] MEDS: (Novolin R) Insulin Human Regular 100 units/ml vial SC SCH ×7 (07:30→21:47)
--- NOTE | 2017-02-22 08:16 | CP.PCM.PN ---
Subjective - Date & Time of Evaluation Date of Evaluation: 02/22/17 Time of Evaluation: 08:15 - Subjective Subjective: didnt get hd yesterday, last hd tuesday. permcath feels okay, denies any sob / chest pain/n/v/d pending cardiac cath Objective - Vital Signs/Intake and Output Vital Signs (last 24 hours): Temp Pulse Resp BP Pulse Ox 98.0 F 87 20 150/97 H 95 02/22/17 04:00 02/22/17 05:17 02/22/17 04:00 02/22/17 05:58 02/22/17 04:00 Intake and Output: 02/22/17 02/22/17 06:59 18:59 Intake Total 350 Output Total 450 Balance -100 - Medications Medications: Current Medications Aspirin (Aspirin Chewable) 81 mg PO DAILY [facility] Last Admin: 02/21/17 10:13 Dose: 81 mg Benzonatate (Tessalon Perles) 100 mg PO TID [facility] Last Admin: 02/21/17 18:01 Dose: 100 mg Calcium Acetate (Phoslo) 667 mg PO TIDCC [facility] Last Admin: 02/21/17 17:20 Dose: 667 mg Doxazosin Mesylate (Cardura) 4 mg PO DAILY [facility] Last Admin: 02/21/17 10:13 Dose: 4 mg Famotidine (Pepcid) 20 mg PO DAILY [facility] Last Admin: 02/21/17 10:13 Dose: 20 mg Fluticasone Propionate (Flonase) 1 spr NS DAILY [facility] Last Admin: 02/21/17 10:14 Dose: 1 spr Furosemide (Lasix) 40 mg IVP Q12H [facility] Last Admin: 02/22/17 05:58 Dose: 40 mg Hydralazine HCl (Apresoline) 10 mg IVP Q6H PRN PRN Reason: Systolic Blood Pressure Last Admin: 02/17/17 09:53 Dose: 10 mg Hydralazine HCl (Apresoline) 50 mg PO Q6H [facility] Last Admin: 02/22/17 04:55 Dose: 50 mg Hydromorphone HCl (Dilaudid) 0.5 mg IVP Q4H PRN PRN Reason: Pain, moderate (4-7) Last Admin: 02/20/17 19:22 Dose: 0.5 mg Heparin Sodium/Sodium Chloride (Heparin 83596 Units/250ml 1/2 Normal Saline) 25 ,000 units in 250 mls @ 11.975 mls/hr IV .[id number] PRN; Protocol; 12 UNITS/KG/HR PRN Reason: PROTOCOL Last Admin: 02/21/17 19:18 Dose: 12 units/kg/hr, 11.975 mls/hr Moxifloxacin HCl (Avelox Iv 400mg/250ml Ns) 400 mg in 250 mls @ 167 mls/hr IVPB Q24H [facility] Last Admin: 02/22/17 01:21 Dose: 167 mls/hr Insulin Glargine (Lantus) 25 unit SC [facility] Last Admin: 02/21/17 22:08 Dose: 25 u Insulin Human Regular (Novolin R) 0 unit SC ACHS [facility] PRN Reason: Protocol Last Admin: 02/22/17 07:30 Dose: Not Given Insulin Human Regular (Novolin R) 8 unit SC ACTID [facility] Last Admin: 02/21/17 17:19 Dose: 8 unit Isosorbide Mononitrate (Imdur) 30 mg PO DAILY [facility] Last Admin: 02/21/17 10:13 Dose: 30 mg Metoprolol Tartrate (Lopressor) 50 mg PO BID [facility] Last Admin: 02/21/17 18:44 Dose: Not Given Rosuvastatin Calcium (Crestor) 10 mg PO [facility] Last Admin: 02/21/17 22:08 Dose: 10 mg Saccharomyces Boulardii (Florastor) 250 mg PO BID [facility] - Labs Labs: 02/21/17 09:14 02/21/17 09:22 PT 11.3 SECONDS (9.7-12.2) 02/21/17 09:14 INR 1.0 02/21/17 09:14 APTT 51 SECONDS (21-34) H D 02/21/17 09:14 - Constitutional Appears: Non-toxic, No Acute Distress, Chronically Ill - Head Exam Head Exam: NORMAL INSPECTION - Eye Exam Eye Exam: Normal appearance - ENT Exam ENT Exam: Mucous Membranes Moist, Normal Exam - Neck Exam Neck Exam: Normal Inspection - Respiratory Exam Respiratory Exam: Decreased Breath Sounds, NORMAL BREATHING PATTERN - Cardiovascular Exam Cardiovascular Exam: REGULAR RHYTHM, RRR - GI/Abdominal Exam GI & Abdominal Exam: Distended, Soft - Extremities Exam Extremities Exam: Normal Inspection Assessment and Plan (1) CKD (chronic kidney disease) stage 5, GFR less than 15 ml/min Status: Acute (2) NSTEMI (non-ST elevated myocardial infarction) Status: Acute (3) New onset of congestive heart failure Status: Acute (4) Type 2 diabetes mellitus with diabetic nephropathy Status: Acute (5) Worsening renal function Status: Acute - Assessment and Plan (Free Text) Assessment: hd today will need chronic dialysis [facility] after cardiac clearance
[2017-02-22 08:27] LABS: BASO # 0.1 K/uL (0.0-0.2); BASO % 1.1 % (0.0-2.0); EOS # 0.1 K/uL (0.0-0.7); EOS % 1.5 % (0.0-4.0); HEMOGLOBIN 10.9 g/dL (12.0-18.0); LYMPH # 1.9 K/uL (1.0-4.3); LYMPH % 22.7 % (20.0-40.0); MEAN CELL VOLUME 87.6 fL (80.0-94.0); MEAN CORPUSCULAR HEMOGLOBIN 28.3 pg (27.0-31.0); MEAN CORPUSCULAR HGB CONC 32.3 g/dL (33.0-37.0); MEAN PLATELET VOLUME 9.3 fL (7.2-11.7); MONO # 0.9 K/uL (0.0-0.8); MONO % 10.7 % (0.0-10.0); NEUT # 5.3 K/uL (1.8-7.0); RBC 3.86 Mil/uL (4.40-5.90); RED CELL DISTRIBUTION WIDTH 14.7 % (11.5-14.5); WHITE BLOOD COUNT 8.2 K/uL (4.8-10.8)
[2017-02-22 08:32] LABS: ALBUMIN 2.4 g/dL (3.5-5.0)
[2017-02-22 08:35] LABS: ALB/GLOB RATIO 0.7 (1.0-2.1)
[2017-02-22 08:36] LABS: CALCIUM 7.8 mg/dl (8.6-10.4); MAGNESIUM 2.1 mg/dL (1.6-2.3)
--- NOTE | 2017-02-22 09:29 | RAD ---
PROCEDURE: Intraoperative Fluoroscopy. HISTORY: RENAL FAILURE FINDINGS: Fluoroscopic assistance was provided. Approximately 47.5 seconds fluoroscopy time utilized during this procedure. Radiation dose = 8.42 mGy Please refer to the operative report for additional details.
[2017-02-22] MEDS: Saccharomyces Boulardi 250 mg Cap PO SCH ×2 (10:09→17:53)
[2017-02-22] MEDS: Fluticasone Nasal 50 mcg/Spray NS SCH (10:09)
--- NOTE | 2017-02-22 13:37 | CP.PCM.PN ---
Subjective - Date & Time of Evaluation Date of Evaluation: 02/22/17 Time of Evaluation: 13:34 - Subjective Subjective: Surgery: Dr. Nunez Patient tolerating HD through permacath w/o problems. Patient for heart cath tomorrow. Objective - Vital Signs/Intake and Output Vital Signs (last 24 hours): Temp Pulse Resp BP Pulse Ox 98.6 F 85 17 158/108 H 98 02/22/17 09:20 02/22/17 11:59 02/22/17 11:59 02/22/17 11:59 02/22/17 11:59 Intake and Output: 02/22/17 02/22/17 06:59 18:59 Intake Total 350 Output Total 450 Balance -100 - Medications Medications: Current Medications Aspirin (Aspirin Chewable) 81 mg PO DAILY [facility] Last Admin: 02/22/17 10:09 Dose: Not Given Benzonatate (Tessalon Perles) 100 mg PO TID [facility] Last Admin: 02/22/17 13:33 Dose: 100 mg Calcium Acetate (Phoslo) 667 mg PO TIDCC [facility] Last Admin: 02/22/17 08:25 Dose: 667 mg Doxazosin Mesylate (Cardura) 4 mg PO DAILY [facility] Last Admin: 02/22/17 10:09 Dose: Not Given Famotidine (Pepcid) 20 mg PO DAILY [facility] Last Admin: 02/22/17 10:09 Dose: Not Given Fluticasone Propionate (Flonase) 1 spr NS DAILY [facility] Last Admin: 02/22/17 10:09 Dose: Not Given Furosemide (Lasix) 40 mg IVP Q12H [facility] Last Admin: 02/22/17 05:58 Dose: 40 mg Hydralazine HCl (Apresoline) 10 mg IVP Q6H PRN PRN Reason: Systolic Blood Pressure Last Admin: 02/17/17 09:53 Dose: 10 mg Hydralazine HCl (Apresoline) 50 mg PO Q6H [facility] Last Admin: 02/22/17 10:08 Dose: Not Given Hydromorphone HCl (Dilaudid) 0.5 mg IVP Q4H PRN PRN Reason: Pain, moderate (4-7) Last Admin: 02/20/17 19:22 Dose: 0.5 mg Heparin Sodium/Sodium Chloride (Heparin 55479 Units/250ml 1/2 Normal Saline) 25 ,000 units in 250 mls @ 11.975 mls/hr IV .[id number] PRN; Protocol; 12 UNITS/KG/HR PRN Reason: PROTOCOL Last Admin: 02/21/17 19:18 Dose: 12 units/kg/hr, 11.975 mls/hr Moxifloxacin HCl (Avelox Iv 400mg/250ml Ns) 400 mg in 250 mls @ 167 mls/hr IVPB Q24H [facility] Last Admin: 02/22/17 01:21 Dose: 167 mls/hr Insulin Glargine (Lantus) 25 unit SC [facility] Last Admin: 02/21/17 22:08 Dose: 25 u Insulin Human Regular (Novolin R) 0 unit SC ACHS [facility] PRN Reason: Protocol Last Admin: 02/22/17 07:30 Dose: Not Given Insulin Human Regular (Novolin R) 8 unit SC ACTID [facility] Last Admin: 02/22/17 08:25 Dose: 8 unit Isosorbide Mononitrate (Imdur) 30 mg PO DAILY [facility] Last Admin: 02/22/17 10:09 Dose: Not Given Metoprolol Tartrate (Lopressor) 50 mg PO BID [facility] Last Admin: 02/22/17 10:09 Dose: Not Given Rosuvastatin Calcium (Crestor) 10 mg PO [facility] Last Admin: 02/21/17 22:08 Dose: 10 mg Saccharomyces Boulardii (Florastor) 250 mg PO BID [facility] Last Admin: 02/22/17 10:09 Dose: Not Given - Labs Labs: 02/22/17 08:10 02/22/17 08:10 PT 11.3 SECONDS (9.7-12.2) 02/21/17 09:14 INR 1.0 02/21/17 09:14 APTT 52 SECONDS (21-34) H 02/22/17 08:10 - Constitutional Appears: Non-toxic, No Acute Distress - Head Exam Head Exam: ATRAUMATIC, NORMOCEPHALIC - Eye Exam Eye Exam: EOMI, Normal appearance - ENT Exam ENT Exam: Mucous Membranes Moist - Respiratory Exam Respiratory Exam: NORMAL BREATHING PATTERN. absent: Respiratory Distress - Cardiovascular Exam Cardiovascular Exam: REGULAR RHYTHM. absent: Tachycardia Assessment and Plan - Assessment and Plan (Free Text) Assessment: 41 y/o male w/ ESRD s/p permacath placement for HD Plan: -per Nephrology, patient will need chronic HD -f/u vein mapping -left arm precautions -f/u heart cath on Tuesday -pending further hospital course determines inpatient vs outpatient elective AVF creation -will follow -d/w Dr. Mayra Garcia PGY3
[2017-02-22] MEDS ORDERED: (Lantus) Insulin Glargine, Recombinant SC SCH (16:50)
[2017-02-22] MEDS: Heparin25000 units/250ml 1/2NS 25,000 UNITS/250 ML BAG IV PRN (19:16)
[2017-02-23 02:11] VITALS: RESP 20
[2017-02-23 04:25] VITALS: O2SAT 95
[2017-02-23] MEDS: (Novolin R) Insulin Human Regular 100 units/ml vial SC SCH ×5 (08:00→17:41)
[2017-02-23 08:28] LABS: BASO # 0.1 K/uL (0.0-0.2); EOS # 0.3 K/uL (0.0-0.7); EOS % 2.5 % (0.0-4.0); HEMOGLOBIN 10.1 g/dL (12.0-18.0); LYMPH # 2.5 K/uL (1.0-4.3); LYMPH % 24.8 % (20.0-40.0); MEAN CELL VOLUME 87.9 fL (80.0-94.0); MEAN CORPUSCULAR HEMOGLOBIN 28.4 pg (27.0-31.0); MEAN CORPUSCULAR HGB CONC 32.2 g/dL (33.0-37.0); MEAN PLATELET VOLUME 10.1 fL (7.2-11.7); MONO # 1.1 K/uL (0.0-0.8); MONO % 11.4 % (0.0-10.0); NEUT % 60.3 % (50.0-75.0); NRBC % 0.1 % (0.0-2.0); RBC 3.57 Mil/uL (4.40-5.90); RED CELL DISTRIBUTION WIDTH 14.9 % (11.5-14.5)
[2017-02-23 08:32] LABS: INR 1.1
[2017-02-23 08:56] LABS: ALBUMIN 2.6 g/dL (3.5-5.0)
[2017-02-23 08:59] LABS: ALB/GLOB RATIO 0.7 (1.0-2.1)
[2017-02-23 09:00] LABS: MAGNESIUM 2.1 mg/dL (1.6-2.3)
[2017-02-23] MEDS: Fluticasone Nasal 50 mcg/Spray NS SCH (09:08)
[2017-02-23] MEDS: Saccharomyces Boulardi 250 mg Cap PO SCH ×2 (09:10→19:09)
--- NOTE | 2017-02-23 11:06 | CP.PCM.PN ---
Subjective - Date & Time of Evaluation Date of Evaluation: 02/23/17 Time of Evaluation: 11:03 - Subjective Subjective: Medicine Progress Note- Dr. Bahena Service Patient was seen and examined at bedside in no acute distress. Patient states he was feeling better today, less short of breath and less pain in his legs. He still has a cough with white sputum, but he says its improved. He reports having a bowel movement last night that was normal. Patient denies having chest pain, palpitations, abdominal pain, nausea, vomiting, diarrhea, dizziness, and constipation. Objective - Vital Signs/Intake and Output Vital Signs (last 24 hours): Temp Pulse Resp BP Pulse Ox 98.7 F 83 20 148/91 H 95 02/23/17 04:42 02/23/17 04:42 02/23/17 04:42 02/23/17 06:12 02/23/17 04:25 - Medications Medications: Current Medications Aspirin (Aspirin Chewable) 81 mg PO DAILY [facility] Last Admin: 02/23/17 09:10 Dose: Not Given Benzonatate (Tessalon Perles) 100 mg PO TID [facility] Last Admin: 02/23/17 09:12 Dose: Not Given Calcium Acetate (Phoslo) 667 mg PO TIDCC [facility] Last Admin: 02/23/17 09:00 Dose: Not Given Doxazosin Mesylate (Cardura) 4 mg PO DAILY [facility] Last Admin: 02/23/17 09:10 Dose: Not Given Famotidine (Pepcid) 20 mg PO DAILY [facility] Last Admin: 02/23/17 09:12 Dose: Not Given Fluticasone Propionate (Flonase) 1 spr NS DAILY [facility] Last Admin: 02/23/17 09:08 Dose: 1 spr Furosemide (Lasix) 40 mg IVP Q12H [facility] Last Admin: 02/23/17 06:12 Dose: 40 mg Hydralazine HCl (Apresoline) 10 mg IVP Q6H PRN PRN Reason: Systolic Blood Pressure Last Admin: 02/17/17 09:53 Dose: 10 mg Hydralazine HCl (Apresoline) 50 mg PO Q6H [facility] Last Admin: 02/23/17 04:22 Dose: 50 mg Moxifloxacin HCl (Avelox Iv 400mg/250ml Ns) 400 mg in 250 mls @ 167 mls/hr IVPB Q24H [facility] Last Admin: 02/22/17 01:25 Dose: 167 mls/hr Insulin Glargine (Lantus) 12 unit SC [facility] Last Admin: 02/22/17 21:46 Dose: Not Given Insulin Human Regular (Novolin R) 0 unit SC ACHS [facility] PRN Reason: Protocol Last Admin: 02/23/17 08:00 Dose: Not Given Insulin Human Regular (Novolin R) 8 unit SC ACTID [facility] Last Admin: 02/23/17 08:00 Dose: Not Given Isosorbide Mononitrate (Imdur) 30 mg PO DAILY [facility] Last Admin: 02/23/17 09:11 Dose: Not Given Metoprolol Tartrate (Lopressor) 50 mg PO BID [facility] Last Admin: 02/23/17 09:08 Dose: 50 mg Rosuvastatin Calcium (Crestor) 10 mg PO [facility] Last Admin: 02/22/17 21:45 Dose: 10 mg Saccharomyces Boulardii (Florastor) 250 mg PO BID [facility] Last Admin: 02/23/17 09:10 Dose: Not Given - Labs Labs: 02/23/17 08:19 02/23/17 08:19 PT 12.0 SECONDS (9.7-12.2) 02/23/17 08:19 INR 1.1 02/23/17 08:19 APTT 41 SECONDS (21-34) H D 02/23/17 08:19 - Constitutional Appears: No Acute Distress - Head Exam Head Exam: NORMAL INSPECTION, NORMOCEPHALIC - Eye Exam Eye Exam: EOMI, Normal appearance - ENT Exam ENT Exam: Mucous Membranes Moist - Neck Exam Neck Exam: Full ROM, Normal Inspection - Respiratory Exam Respiratory Exam: Clear to Ausculation Bilateral, NORMAL BREATHING PATTERN. absent: Rhonchi, Wheezes - Cardiovascular Exam Cardiovascular Exam: REGULAR RHYTHM, +S1, +S2 - GI/Abdominal Exam GI & Abdominal Exam: Soft, Normal Bowel Sounds. absent: Tenderness - Extremities Exam Extremities Exam: Pedal Edema, Tenderness - Neurological Exam Neurological Exam: Alert, Awake, Oriented x3 - Psychiatric Exam Psychiatric exam: Normal Affect, Normal Mood - Skin Skin Exam: Dry, Intact, Normal Color, Warm Assessment and Plan (1) Shortness of breath Status: Acute (2) Diabetes mellitus Status: Acute (3) MICAELA (acute kidney injury) Status: Acute (4) NSTEMI (non-ST elevated myocardial infarction) Status: Acute (5) Hypertension Status: Acute (6) Cough Status: Acute (7) Prophylactic measure Status: Acute
[2017-02-23] MEDS ORDERED: Iodixanol 320 MG/ML 100 ML BOTTLE IV ONE ×2 (11:08→11:47)
--- NOTE | 2017-02-23 11:09 | CARD ---
APPROVED REPORT EXAM: Two-dimensional and M-mode echocardiogram with Doppler and color Doppler. Other Information Quality : GoodRhythm : NSR INDICATION Congestive Heart Failure LEG Edema RISK FACTORS Hypertension Hyperlipidemia Diabetes M-Mode DIMENSIONS RVDd1.87 (2.1-3.2cm)Left Atrium (MM)4.14 (2.5-4.0cm) IVSd1.29 (0.7-1.1cm)Aortic Root3.16 (2.2-3.7cm) LVDd5.86 (4.0-5.6cm)Aortic Cusp Exc.1.95 (1.5-2.0cm) PWd1.29 (0.7-1.1cm)FS (%) 47 % LVDs3.12 (2.0-3.8cm)LVEF (%)77 (>50%) Mitral Valve MV E Snphmiom14.7cm/sMV A Pmguwdfi69.7cm/sE/A ratio1.5 TDI E/Lateral E'0.0E/Medial E'0.0 Tricuspid Valve TR Peak Chtfwirk408aq/sTR Peak Gr.[id number] <Conclusion> poor window. mildly dilated la,lv. moderate degree of concnetric lvh. overall lvef of 50-55%. akinetic inferoapical,apex & anteroapical wall. cad. no mural clots seen. grossly normal lloking aortic,mitral & tv. mild mr,tr & trace ai with normal pulmonay systolic pressures of 20 mm of hg. diastolic function is indeterminate. normal size sclerotic aortic root.
--- NOTE | 2017-02-23 11:17 | CP.PCM.PN ---
Subjective - Date & Time of Evaluation Date of Evaluation: 02/23/17 Time of Evaluation: 09:00 - Subjective Subjective: Patient seen and examined at bedside. No acute events overnight as per nursing. Patient was resting comfortably. He did complain of a productive cough with white sputum and denied noticing any blood. He reports his LE swelling has improved since admission and he overall feels better than he did on admission. Patient has had 2 rounds of HD and has a dialysis catheter in place on R chest wall. Patient has been NPO overnight for cardiac cath at 11am today. Patient denied any fever, chills, headache, dizziness, chest pain, palpitations, SOB, abd pain, nausea, vomiting, bowel/bladder complaints. Objective - Vital Signs/Intake and Output Vital Signs (last 24 hours): Temp Pulse Resp BP Pulse Ox 98.7 F 83 20 148/91 H 95 02/23/17 04:42 02/23/17 04:42 02/23/17 04:42 02/23/17 06:12 02/23/17 04:25 - Medications Medications: Current Medications Aspirin (Aspirin Chewable) 81 mg PO DAILY [facility] Last Admin: 02/23/17 09:10 Dose: Not Given Benzonatate (Tessalon Perles) 100 mg PO TID [facility] Last Admin: 02/23/17 09:12 Dose: Not Given Calcium Acetate (Phoslo) 667 mg PO TIDCC [facility] Last Admin: 02/23/17 09:00 Dose: Not Given Doxazosin Mesylate (Cardura) 4 mg PO DAILY [facility] Last Admin: 02/23/17 09:10 Dose: Not Given Famotidine (Pepcid) 20 mg PO DAILY [facility] Last Admin: 02/23/17 09:12 Dose: Not Given Fluticasone Propionate (Flonase) 1 spr NS DAILY [facility] Last Admin: 02/23/17 09:08 Dose: 1 spr Furosemide (Lasix) 40 mg IVP Q12H [facility] Last Admin: 02/23/17 06:12 Dose: 40 mg Hydralazine HCl (Apresoline) 10 mg IVP Q6H PRN PRN Reason: Systolic Blood Pressure Last Admin: 02/17/17 09:53 Dose: 10 mg Hydralazine HCl (Apresoline) 50 mg PO Q6H [facility] Last Admin: 02/23/17 04:22 Dose: 50 mg Moxifloxacin HCl (Avelox Iv 400mg/250ml Ns) 400 mg in 250 mls @ 167 mls/hr IVPB Q24H [facility] Last Admin: 02/22/17 01:25 Dose: 167 mls/hr Insulin Glargine (Lantus) 12 unit SC HS [facility] Last Admin: 02/22/17 21:46 Dose: Not Given Insulin Human Regular (Novolin R) 0 unit SC ACHS [facility] PRN Reason: Protocol Last Admin: 02/23/17 08:00 Dose: Not Given Insulin Human Regular (Novolin R) 8 unit SC ACTID [facility] Last Admin: 02/23/17 08:00 Dose: Not Given Isosorbide Mononitrate (Imdur) 30 mg PO DAILY [facility] Last Admin: 02/23/17 09:11 Dose: Not Given Metoprolol Tartrate (Lopressor) 50 mg PO BID [facility] Last Admin: 02/23/17 09:08 Dose: 50 mg Rosuvastatin Calcium (Crestor) 10 mg PO [facility] Last Admin: 02/22/17 21:45 Dose: 10 mg Saccharomyces Boulardii (Florastor) 250 mg PO BID [facility] Last Admin: 02/23/17 09:10 Dose: Not Given - Labs Labs: 02/23/17 08:19 02/23/17 08:19 PT 12.0 SECONDS (9.7-12.2) 02/23/17 08:19 INR 1.1 02/23/17 08:19 APTT 41 SECONDS (21-34) H D 02/23/17 08:19 - Constitutional Appears: Non-toxic, No Acute Distress - Head Exam Head Exam: ATRAUMATIC, NORMAL INSPECTION, NORMOCEPHALIC - Eye Exam Eye Exam: EOMI, Normal appearance, PERRL. absent: Conjunctival injection, Scleral icterus Pupil Exam: NORMAL ACCOMODATION - ENT Exam ENT Exam: Mucous Membranes Moist - Respiratory Exam Respiratory Exam: Decreased Breath Sounds, NORMAL BREATHING PATTERN. absent: Accessory Muscle Use - Cardiovascular Exam Cardiovascular Exam: REGULAR RHYTHM, RRR, +S1, +S2 - GI/Abdominal Exam GI & Abdominal Exam: Soft, Normal Bowel Sounds. absent: Tenderness - Extremities Exam Extremities Exam: Pedal Edema (trace b/l). absent: Calf Tenderness - Back Exam Back Exam: NORMAL INSPECTION. absent: rash noted - Neurological Exam Neurological Exam: Alert, Awake, Oriented x3 - Psychiatric Exam Psychiatric exam: Normal Affect, Normal Mood - Skin Skin Exam: Dry, Intact, Normal Color, Warm Assessment and Plan - Assessment and Plan (Free Text) Assessment: 41 y/o M with PMH of HTN and DM presents to the ED initially on 02/15/17 for shortness of breath for 2 weeks. Plan: NSTEMI -f/u cardiac cath report -troponins elevated on admission 0.424-> 0.422-> 0.305-> 0.217 -EKG showed no acute ST changes -Echo: midly dilated LA, LV; mod degree concentric LVH; overall LVEF 50-55%; Akinetic inferoapical apex and anteroapical wall; CAD; no mural clots seen; Normal looking aortic, mitral, and TV; Mild MR, TR and Trace AI with normal pulmonary systolic pressure 20mmHg, diastolic function is indeterminate; normal size sclerotic aortic root -ASA 81mg po daily -Lasix 40mg ivp q12 -Hydralazine 10mg ivp q6 prn -Hydralazine 50mg po q6 -Imdur 30mg po daily -Lopressor 50mg po bid -Crestor 10mg po hs -Continue current management
[2017-02-23] MEDS ORDERED: DiphenhydrAMINE 50 mg/ml Inj ONE (11:22)
--- NOTE | 2017-02-23 12:08 | CP.PCM.PN ---
Subjective - Date & Time of Evaluation Date of Evaluation: 02/23/17 Time of Evaluation: 06:40 - Subjective Subjective: Vascular sx progress note for Dr. Ger Menard, PGY-1 Pt S & E at bedside this AM. Pt w/SOB overnight, no other complaints. Tolerating HD. Objective - Vital Signs/Intake and Output Vital Signs (last 24 hours): Temp Pulse Resp BP Pulse Ox 98.3 F 91 H 20 147/89 95 02/23/17 08:00 02/23/17 08:00 02/23/17 08:00 02/23/17 08:00 02/23/17 08:00 - Medications Medications: Current Medications Aspirin (Aspirin Chewable) 81 mg PO DAILY [facility] Last Admin: 02/23/17 09:10 Dose: Not Given Benzonatate (Tessalon Perles) 100 mg PO TID [facility] Last Admin: 02/23/17 09:12 Dose: Not Given Calcium Acetate (Phoslo) 667 mg PO TIDCC [facility] Last Admin: 02/23/17 09:00 Dose: Not Given Doxazosin Mesylate (Cardura) 4 mg PO DAILY [facility] Last Admin: 02/23/17 09:10 Dose: Not Given Famotidine (Pepcid) 20 mg PO DAILY [facility] Last Admin: 02/23/17 09:12 Dose: Not Given Fluticasone Propionate (Flonase) 1 spr NS DAILY [facility] Last Admin: 02/23/17 09:08 Dose: 1 spr Furosemide (Lasix) 40 mg IVP Q12H [facility] Last Admin: 02/23/17 06:12 Dose: 40 mg Hydralazine HCl (Apresoline) 10 mg IVP Q6H PRN PRN Reason: Systolic Blood Pressure Last Admin: 02/17/17 09:53 Dose: 10 mg Hydralazine HCl (Apresoline) 50 mg PO Q6H [facility] Last Admin: 02/23/17 04:22 Dose: 50 mg Moxifloxacin HCl (Avelox Iv 400mg/250ml Ns) 400 mg in 250 mls @ 167 mls/hr IVPB Q24H [facility] Last Admin: 02/22/17 01:25 Dose: 167 mls/hr Insulin Glargine (Lantus) 12 unit SC HS [facility] Last Admin: 02/22/17 21:46 Dose: Not Given Insulin Human Regular (Novolin R) 0 unit SC ACHS [facility] PRN Reason: Protocol Last Admin: 02/23/17 08:00 Dose: Not Given Insulin Human Regular (Novolin R) 8 unit SC ACTID [facility] Last Admin: 02/23/17 08:00 Dose: Not Given Isosorbide Mononitrate (Imdur) 30 mg PO DAILY [facility] Last Admin: 02/23/17 09:11 Dose: Not Given Metoprolol Tartrate (Lopressor) 50 mg PO BID [facility] Last Admin: 02/23/17 09:08 Dose: 50 mg Rosuvastatin Calcium (Crestor) 10 mg PO HS [facility] Last Admin: 02/22/17 21:45 Dose: 10 mg Saccharomyces Boulardii (Florastor) 250 mg PO BID [facility] Last Admin: 02/23/17 09:10 Dose: Not Given - Labs Labs: 02/23/17 08:19 02/23/17 08:19 PT 12.0 SECONDS (9.7-12.2) 02/23/17 08:19 INR 1.1 02/23/17 08:19 APTT 41 SECONDS (21-34) H D 02/23/17 08:19 - Constitutional Appears: Non-toxic, No Acute Distress - Head Exam Head Exam: ATRAUMATIC, NORMAL INSPECTION, NORMOCEPHALIC - Eye Exam Eye Exam: EOMI, Normal appearance - ENT Exam ENT Exam: Mucous Membranes Moist, Normal Exam - Neck Exam Neck Exam: Full ROM, Normal Inspection - Respiratory Exam Respiratory Exam: Clear to Ausculation Bilateral, NORMAL BREATHING PATTERN. absent: Chest Wall Tenderness, Rales, Rhonchi, Wheezes Additional comments: Right permacatheter in place, no erythema or drainage noted - Cardiovascular Exam Cardiovascular Exam: REGULAR RHYTHM, +S1, +S2 - GI/Abdominal Exam GI & Abdominal Exam: Soft, Normal Bowel Sounds. absent: Tenderness - Extremities Exam Extremities Exam: Normal Inspection. absent: Pedal Edema - Neurological Exam Neurological Exam: Alert, Awake, CN II-XII Intact, Oriented x3 - Psychiatric Exam Psychiatric exam: Normal Affect, Normal Mood - Skin Skin Exam: Dry, Normal Color, Warm Assessment and Plan - Assessment and Plan (Free Text) Assessment: 41M w/ESRD, POD#3 s/p permacather placement. Tolerating HD. Plan: -will need chronic HD -FU vein mapping -L arm precautions -For cardiac cath today -inpt vs. outpt elective AVF creation to be determined -Will follow [facility] attending [facility], PGY-1
--- NOTE | 2017-02-23 14:39 | CP.PCM.PN ---
Subjective - Date & Time of Evaluation Date of Evaluation: 02/23/17 Time of Evaluation: 13:15 - Subjective Subjective: s/p cath ?results being seen for life vest lying flat no respiratory complaints tolerating HD Objective - Vital Signs/Intake and Output Vital Signs (last 24 hours): Temp Pulse Resp BP Pulse Ox 98.3 F 91 H 20 147/89 95 02/23/17 08:00 02/23/17 08:00 02/23/17 08:00 02/23/17 08:00 02/23/17 08:00 - Medications Medications: Current Medications Aspirin (Aspirin Chewable) 81 mg PO DAILY [facility] Last Admin: 02/23/17 09:10 Dose: Not Given Benzonatate (Tessalon Perles) 100 mg PO TID [facility] Last Admin: 02/23/17 14:33 Dose: Not Given Calcium Acetate (Phoslo) 667 mg PO TIDCC [facility] Last Admin: 02/23/17 12:00 Dose: Not Given Doxazosin Mesylate (Cardura) 4 mg PO DAILY [facility] Last Admin: 02/23/17 09:10 Dose: Not Given Famotidine (Pepcid) 20 mg PO DAILY [facility] Last Admin: 02/23/17 09:12 Dose: Not Given Fluticasone Propionate (Flonase) 1 spr NS DAILY [facility] Last Admin: 02/23/17 09:08 Dose: 1 spr Furosemide (Lasix) 40 mg IVP Q12H [facility] Last Admin: 02/23/17 06:12 Dose: 40 mg Hydralazine HCl (Apresoline) 10 mg IVP Q6H PRN PRN Reason: Systolic Blood Pressure Last Admin: 02/17/17 09:53 Dose: 10 mg Hydralazine HCl (Apresoline) 50 mg PO Q6H [facility] Last Admin: 02/23/17 10:45 Dose: Not Given Moxifloxacin HCl (Avelox Iv 400mg/250ml Ns) 400 mg in 250 mls @ 167 mls/hr IVPB Q24H [facility] Last Admin: 02/22/17 01:25 Dose: 167 mls/hr Insulin Glargine (Lantus) 12 unit SC HS [facility] Last Admin: 02/22/17 21:46 Dose: Not Given Insulin Human Regular (Novolin R) 0 unit SC ACHS [facility] PRN Reason: Protocol Last Admin: 02/23/17 11:30 Dose: Not Given Insulin Human Regular (Novolin R) 8 unit SC ACTID [facility] Last Admin: 02/23/17 11:30 Dose: Not Given Isosorbide Mononitrate (Imdur) 30 mg PO DAILY [facility] Last Admin: 02/23/17 09:11 Dose: Not Given Metoprolol Tartrate (Lopressor) 50 mg PO BID [facility] Last Admin: 02/23/17 09:08 Dose: 50 mg Rosuvastatin Calcium (Crestor) 10 mg PO HS [facility] Last Admin: 02/22/17 21:45 Dose: 10 mg Saccharomyces Boulardii (Florastor) 250 mg PO BID [facility] Last Admin: 02/23/17 09:10 Dose: Not Given - Labs Labs: 02/23/17 08:19 02/23/17 08:19 PT 12.0 SECONDS (9.7-12.2) 02/23/17 08:19 INR 1.1 02/23/17 08:19 APTT 41 SECONDS (21-34) H D 02/23/17 08:19 - Constitutional Appears: No Acute Distress, Chronically Ill - Eye Exam Eye Exam: EOMI - ENT Exam ENT Exam: Mucous Membranes Moist - Neck Exam Neck Exam: Full ROM. absent: Lymphadenopathy - Respiratory Exam Respiratory Exam: Clear to Ausculation Bilateral. absent: Accessory Muscle Use - Cardiovascular Exam Cardiovascular Exam: REGULAR RHYTHM. absent: Rubs - Neurological Exam Neurological Exam: Alert, Oriented x3 Assessment and Plan - Assessment and Plan (Free Text) Assessment: new esrd, HD in am await kendrick s/p cath, f/u results decreased ef, for life vest
--- NOTE | 2017-02-23 18:41 | CP.PCM.DIS ---
<JúniorpandaBrea W. - Last Filed: 02/23/17 18:39> Provider - Provider Date of Admission: 02/15/17 20:58 Attending physician: Molina Bronson MD Primary care physician: Dr. Aguilar Consults: Cardiology: Dr. Lynn, Dr. Byrnes Nephrology: Dr. Lincoln Time Spent in preparation of Discharge (in minutes): 45 Diagnosis - Discharge Diagnosis (1) CHF exacerbation Status: Chronic Comment: See hospital summary for more details. (2) Shortness of breath Status: Resolved Comment: See hospital summary for more details. (3) Diabetes mellitus Status: Chronic Comment: See hospital summary for more details. (4) MICAELA (acute kidney injury) Status: Chronic Comment: See hospital summary for more details. (5) NSTEMI (non-ST elevated myocardial infarction) Status: Chronic Comment: See hospital summary for more details. (6) Hypertension Status: Chronic Comment: See hospital summary for more details. (7) Cough Status: Resolved Comment: See hospital summary for more details. Hospital Course - Lab Results Lab Results: Most Recent Lab Values WBC 10.0 K/uL (4.8-10.8) 02/23/17 08:19 RBC 3.57 Mil/uL (4.40-5.90) L 02/23/17 08:19 Hgb 10.1 g/dL (12.0-18.0) L 02/23/17 08:19 Hct 31.4 % (35.0-51.0) L 02/23/17 08:19 MCV 87.9 fL (80.0-94.0) 02/23/17 08:19 MCH 28.4 pg (27.0-31.0) 02/23/17 08:19 MCHC 32.2 g/dL (33.0-37.0) L 02/23/17 08:19 RDW 14.9 % (11.5-14.5) H 02/23/17 08:19 Plt Count 211 K/uL (130-400) 02/23/17 08:19 MPV 10.1 fL (7.2-11.7) 02/23/17 08:19 Neut % (Auto) 60.3 % (50.0-75.0) 02/23/17 08:19 Lymph % (Auto) 24.8 % (20.0-40.0) 02/23/17 08:19 Towns % (Auto) 11.4 % (0.0-10.0) H 02/23/17 08:19 Eos % (Auto) 2.5 % (0.0-4.0) 02/23/17 08:19 Baso % (Auto) 1.0 % (0.0-2.0) 02/23/17 08:19 Neut # 6.0 K/uL (1.8-7.0) 02/23/17 08:19 Lymph # 2.5 K/uL (1.0-4.3) 02/23/17 08:19 Towns # 1.1 K/uL (0.0-0.8) H 02/23/17 08:19 Eos # 0.3 K/uL (0.0-0.7) 02/23/17 08:19 Baso # 0.1 K/uL (0.0-0.2) 02/23/17 08:19 PT 12.0 SECONDS (9.7-12.2) 02/23/17 08:19 INR 1.1 02/23/17 08:19 APTT 41 SECONDS (21-34) H D 02/23/17 08:19 Sodium 135 mmol/L (132-148) 02/23/17 08:19 Potassium 3.8 mmol/L (3.6-5.2) 02/23/17 08:19 Chloride 103 mmol/L (98-107) 02/23/17 08:19 Carbon Dioxide 25 mmol/L (22-30) 02/23/17 08:19 Anion Gap 11 (10-20) 02/23/17 08:19 BUN 24 mg/dL (9-20) H 02/23/17 08:19 Creatinine 4.5 MG/DL (0.8-1.5) H 02/23/17 08:19 Est GFR ( Amer) 17 02/23/17 08:19 Est GFR (Non-Af Amer) 14 02/23/17 08:19 POC Glucose (mg/dL) 94 mg/dL (65-110) 02/23/17 16:53 Random Glucose 105 mg/dL (75-110) 02/23/17 08:19 Hemoglobin A1c 11.0 % (4.2-6.5) H 02/17/17 14:08 Calcium 8.0 mg/dl (8.6-10.4) L 02/23/17 08:19 Phosphorus 4.1 mg/dL (2.5-4.5) 02/23/17 08:19 Magnesium 2.1 mg/dL (1.6-2.3) 02/23/17 08:19 % Saturation 21 (20-55) 02/17/17 08:08 Total Bilirubin 0.6 mg/dL (0.2-1.3) 02/23/17 08:19 AST 39 U/L (17-59) 02/23/17 08:19 ALT 13 U/L (21-72) L D 02/23/17 08:19 Alkaline Phosphatase 83 U/L (38-126) 02/23/17 08:19 Total Creatine Kinase 96 U/L (55-170) 02/16/17 07:09 CK-MB (Mass) 2.87 ng/mL (0.0-3.38) 02/16/17 07:09 Troponin I 0.2170 ng/mL (0.00-0.120) H* 02/16/17 13:08 Troponin I, Quant 0.3050 ng/mL (0.00-0.120) H* 02/16/17 07:09 NT-Pro-B Natriuret Pep 60982 pg/mL (0-450) H 02/15/17 18:21 Total Protein 6.2 g/dL (6.3-8.3) L 02/23/17 08:19 Albumin 2.6 g/dL (3.5-5.0) L 02/23/17 08:19 Globulin 3.6 gm/dL (2.2-3.9) 02/23/17 08:19 Albumin/Globulin Ratio 0.7 (1.0-2.1) L 02/23/17 08:19 Triglycerides 210 mg/dL (0-149) H D 02/18/17 17:22 Cholesterol 285 mg/dL (0-199) H 02/18/17 17:22 LDL Cholesterol Direct 189 mg/dL (0-129) H 02/18/17 17:22 HDL Cholesterol 51 mg/dL (30-70) 02/18/17 17:22 PTH Intact Whole Molec 555 pg/mL (14-64) H 02/17/17 08:08 Urine Color Straw (YELLOW) 02/16/17 19:37 Urine Clarity Clear (Clear) 02/16/17 19:37 Urine pH 5.0 (5.0-8.0) 02/16/17 19:37 Ur Specific [place] 1.009 (1.003-1.030) 02/16/17 19:37 Urine Protein 2+ mg/dL (NEGATIVE) H 02/16/17 19:37 Urine Glucose (UA) 3+ mg/dL (Normal) H 02/16/17 19:37 Urine Ketones Negative mg/dL (NEGATIVE) 02/16/17 19:37 Urine Blood Negative (NEGATIVE) 02/16/17 19:37 Urine Nitrate Negative (NEGATIVE) 02/16/17 19:37 Urine Bilirubin Negative (NEGATIVE) 02/16/17 19:37 Urine Urobilinogen Normal mg/dL (0.2-1.0) 02/16/17 19:37 Ur Leukocyte Esterase Neg Bethanie/uL (Negative) 02/16/17 19:37 Urine WBC (Auto) 2 /hpf (0-5) 02/16/17 19:37 Urine RBC (Auto) 1 /hpf (0-3) 02/16/17 19:37 Ur Squamous Epith Cells < 1 /hpf (0-5) 02/16/17 19:37 Urine Eosinophils Negative (NEGATIVE) 02/16/17 19:37 Urine Osmolality 330 mosm/kg (300-1000) 02/16/17 19:37 Ur Random Sodium 92 mmol/L 02/16/17 19:37 Urine Collection Time 24 HRS 02/17/17 19:30 Urine Total Volume 2350 mL 02/17/17 19:30 Ur Protein 24 Hr Calc 92386.0 mg/24hr (42-225) H 02/17/17 19:30 Hep Bs Antigen Negative (NEGATIVE) 02/17/17 08:08 Hepatitis C Antibody Negative (NEGATIVE) 02/17/17 08:08 Ur L.pneumophila Ag Negative (NEGATIVE) 02/21/17 23:31 Mycoplasma pneumon IgM Negative (NEGATIVE) 02/23/17 09:51 - Hospital Course Hospital Course: CC - "Shortness of breath" HPI - 41 year old male with a past medical history of DM and HTN presented with shortness of breath for 2 weeks. He stated that he gets very short of breath with exertion. He also has shortness of breath when he sleeps which wakes him up and night and then he begins to cough. It is difficult for him to lie flat without being SOB. He states that he has also noticed that his legs have been swollen for the last month. He denied urinary retention or hematuria. he denied urinary complaints. He denied f/c, headache, N/V, chest pain, abd pain, diarrhea /constipation. Denies recent travel or sick contacts. Patient was admitted for shortness of breath. In the ED, EKG showed sinus rhythm with nonspecific changes; Thony-lateral infarct, age undetermined; prolonged QT. Patient was given aspirin and Chest xray was completed and showed bibasilar opacities with small pleural effusions and congestive change; possible pulmonary edema/congestive heart failure. Patient was started on Lasix. Patient was then monitored on telemetry. Renal ultrasound was unremarkable, Patient was found to have acute kidney injury and began hemodialysis. He had two sessions total. Duplex of lower extremities showed no abnormalities and V/Q scan showed low probability for pulmonary embolism. Repeat chest xray showed pulmonary venous congestion and redistribution and bilateral pleural effusions, larger on the left with compressive atelectasis/ pneumonia. Patient was being treated for pneumonia with Avelox. Patient went for cardiac catherization and was found to have triple vessel disease. Patient is being transferred to [facility] to undergo CABG procedure under the care of Dr. Montanez. Patient is being transferred to [facility] for surgery. Patient will be under the care of Dr. Montanez. Discharge Exam - Head Exam Head Exam: ATRAUMATIC, NORMAL INSPECTION, NORMOCEPHALIC - Eye Exam Eye Exam: EOMI, Normal appearance - ENT Exam ENT Exam: Mucous Membranes Moist - Neck Exam Neck exam: Full Rom - Respiratory Exam Respiratory Exam: Clear to PA & Lateral, NORMAL BREATHING PATTERN, UNREMARKABLE. absent: Wheezes - Cardiovascular Exam Cardiovascular Exam: REGULAR RHYTHM, +S1, +S2 - GI/Abdominal Exam GI & Abdominal Exam: Normal Bowel Sounds, Unremarkable - Extremities Exam Extremities exam: pedal edema, tenderness - Neurological Exam Neurological exam: Alert, Oriented x3 - Psychiatric Exam Psychiatric exam: Normal Affect, Normal Mood - Skin Skin Exam: Dry, Intact, Normal Color, Warm Discharge Plan - Follow Up Plan Condition: SERIOUS Disposition: OTHER INSTITUTION Instructions: Heart Failure (DC), Dialysis Diet (DC), End Stage Kidney Disease (DC), Perma-cath Placement (DC) Additional Instructions: Patient is being transferred to [facility] for surgery. Patient will be under the care of Dr. Montanez. <Marilyn Bahena V - Last Filed: 02/26/17 05:42> Provider - Provider Date of Admission: 02/15/17 20:58 Attending physician: Molina Bronson MD Hospital Course - Lab Results Lab Results: Most Recent Lab Values WBC 10.0 K/uL (4.8-10.8) 02/23/17 08:19 RBC 3.57 Mil/uL (4.40-5.90) L 02/23/17 08:19 Hgb 10.1 g/dL (12.0-18.0) L 02/23/17 08:19 Hct 31.4 % (35.0-51.0) L 02/23/17 08:19 MCV 87.9 fL (80.0-94.0) 02/23/17 08:19 MCH 28.4 pg (27.0-31.0) 02/23/17 08:19 MCHC 32.2 g/dL (33.0-37.0) L 02/23/17 08:19 RDW 14.9 % (11.5-14.5) H 02/23/17 08:19 Plt Count 211 K/uL (130-400) 02/23/17 08:19 MPV 10.1 fL (7.2-11.7) 02/23/17 08:19 Neut % (Auto) 60.3 % (50.0-75.0) 02/23/17 08:19 Lymph % (Auto) 24.8 % (20.0-40.0) 02/23/17 08:19 Towns % (Auto) 11.4 % (0.0-10.0) H 02/23/17 08:19 Eos % (Auto) 2.5 % (0.0-4.0) 02/23/17 08:19 Baso % (Auto) 1.0 % (0.0-2.0) 02/23/17 08:19 Neut # 6.0 K/uL (1.8-7.0) 02/23/17 08:19 Lymph # 2.5 K/uL (1.0-4.3) 02/23/17 08:19 Towns # 1.1 K/uL (0.0-0.8) H 02/23/17 08:19 Eos # 0.3 K/uL (0.0-0.7) 02/23/17 08:19 Baso # 0.1 K/uL (0.0-0.2) 02/23/17 08:19 PT 12.0 SECONDS (9.7-12.2) 02/23/17 08:19 INR 1.1 02/23/17 08:19 APTT 41 SECONDS (21-34) H D 02/23/17 08:19 Sodium 135 mmol/L (132-148) 02/23/17 08:19 Potassium 3.8 mmol/L (3.6-5.2) 02/23/17 08:19 Chloride 103 mmol/L (98-107) 02/23/17 08:19 Carbon Dioxide 25 mmol/L (22-30) 02/23/17 08:19 Anion Gap 11 (10-20) 02/23/17 08:19 BUN 24 mg/dL (9-20) H 02/23/17 08:19 Creatinine 4.5 MG/DL (0.8-1.5) H 02/23/17 08:19 Est GFR ( Amer) 17 02/23/17 08:19 Est GFR (Non-Af Amer) 14 02/23/17 08:19 POC Glucose (mg/dL) 94 mg/dL (65-110) 02/23/17 16:53 Random Glucose 105 mg/dL (75-110) 02/23/17 08:19 Hemoglobin A1c 11.0 % (4.2-6.5) H 02/17/17 14:08 Calcium 8.0 mg/dl (8.6-10.4) L 02/23/17 08:19 Phosphorus 4.1 mg/dL (2.5-4.5) 02/23/17 08:19 Magnesium 2.1 mg/dL (1.6-2.3) 02/23/17 08:19 % Saturation 21 (20-55) 02/17/17 08:08 Total Bilirubin 0.6 mg/dL (0.2-1.3) 02/23/17 08:19 AST 39 U/L (17-59) 02/23/17 08:19 ALT 13 U/L (21-72) L D 02/23/17 08:19 Alkaline Phosphatase 83 U/L (38-126) 02/23/17 08:19 Total Creatine Kinase 96 U/L (55-170) 02/16/17 07:09 CK-MB (Mass) 2.87 ng/mL (0.0-3.38) 02/16/17 07:09 Troponin I 0.2170 ng/mL (0.00-0.120) H* 02/16/17 13:08 Troponin I, Quant 0.3050 ng/mL (0.00-0.120) H* 02/16/17 07:09 NT-Pro-B Natriuret Pep 52823 pg/mL (0-450) H 02/15/17 18:21 Total Protein 6.2 g/dL (6.3-8.3) L 02/23/17 08:19 Albumin 2.6 g/dL (3.5-5.0) L 02/23/17 08:19 Globulin 3.6 gm/dL (2.2-3.9) 02/23/17 08:19 Albumin/Globulin Ratio 0.7 (1.0-2.1) L 02/23/17 08:19 Triglycerides 210 mg/dL (0-149) H D 02/18/17 17:22 Cholesterol 285 mg/dL (0-199) H 02/18/17 17:22 LDL Cholesterol Direct 189 mg/dL (0-129) H 02/18/17 17:22 HDL Cholesterol 51 mg/dL (30-70) 02/18/17 17:22 PTH Intact Whole Molec 555 pg/mL (14-64) H 02/17/17 08:08 Urine Color Straw (YELLOW) 02/16/17 19:37 Urine Clarity Clear (Clear) 02/16/17 19:37 Urine pH 5.0 (5.0-8.0) 02/16/17 19:37 Ur Specific [place] 1.009 (1.003-1.030) 02/16/17 19:37 Urine Protein 2+ mg/dL (NEGATIVE) H 02/16/17 19:37 Urine Glucose (UA) 3+ mg/dL (Normal) H 02/16/17 19:37 Urine Ketones Negative mg/dL (NEGATIVE) 02/16/17 19:37 Urine Blood Negative (NEGATIVE) 02/16/17 19:37 Urine Nitrate Negative (NEGATIVE) 02/16/17 19:37 Urine Bilirubin Negative (NEGATIVE) 02/16/17 19:37 Urine Urobilinogen Normal mg/dL (0.2-1.0) 02/16/17 19:37 Ur Leukocyte Esterase Neg Bethanie/uL (Negative) 02/16/17 19:37 Urine WBC (Auto) 2 /hpf (0-5) 02/16/17 19:37 Urine RBC (Auto) 1 /hpf (0-3) 02/16/17 19:37 Ur Squamous Epith Cells < 1 /hpf (0-5) 02/16/17 19:37 Urine Eosinophils Negative (NEGATIVE) 02/16/17 19:37 Urine Osmolality 330 mosm/kg (300-1000) 02/16/17 19:37 Ur Random Sodium 92 mmol/L 02/16/17 19:37 Urine Collection Time 24 HRS 02/17/17 19:30 Urine Total Volume 2350 mL 02/17/17 19:30 Ur Protein 24 Hr Calc 24158.0 mg/24hr (42-225) H 02/17/17 19:30 Hep Bs Antigen Negative (NEGATIVE) 02/17/17 08:08 Hepatitis C Antibody Negative (NEGATIVE) 02/17/17 08:08 Ur L.pneumophila Ag Negative (NEGATIVE) 02/21/17 23:31 Mycoplasma pneumon IgM Negative (NEGATIVE) 02/23/17 09:51 Attending/Attestation - Attestation I have personally seen and examined this patient.: Yes I have fully participated in the care of the patient.: Yes I have reviewed all pertinent clinical information, including history, physical exam and plan: Yes Notes (Text): This is late computer entry for 02/23/17. Patient underwent cardiac cath today today. Discussed with ore feeder, patient has triple vessel disease. Arrangements made for patient for transferred to [facility] for open heart surgery by cardiology. Patient's accepting physician, Dr Montanez at [facility]. Patient is aware of findings and agrees to transfer. Further medical management upon transfer for coronary artery disease, congestive heart failure, Acute kidney insufficiency, and uncontrolled diabetes. Discharge order discussed with day-time international trade teacher. Medications reconciled upon discharge. This is a summary of patient's hospitalization. Please see EMR for further details.
[2017-02-23 19:11] VITALS: BP 160/108
[2017-02-23 19:58] VITALS: TEMP 97.9
[2017-02-24 02:00] VITALS: PULSE 99
--- NOTE | 2017-02-26 05:47 | PCM.HF ---
Heart Failure Core Measure - Heart Failure Ejection Fraction: 40 % or Greater Left Ventricular Function to be assessed after discharge: Yes BERENICE Inhibitor Prescribed: No Contraindication/Reason for not providing: renal insuffiency Beta-Mathew Prescribed: Metoprolol Succinate (lopressor) Angiotensin II Receptor Mathew Prescribed: No Contraindication/Reason for not providing: renal insufficiency AnticoagulationTherapy for Atrial Fibrillation/Atrialflutter: No Contraindication/Reason for not providing: not clinically indicated Aldosterone Antagonist Prescribed: No Contraindication/Reason for not providing: not clinically indicated Hydralazine Nitrate Prescribed: Yes Implantable Cardioverter Defibrillator Therapy: No Contraindication/Reason for not providing: open heart surgery first Cardiac Resynchronization Therapy Prescribed: Yes Contraindication/Reason for not providing: transferred for [facility] for open heart surgery - Follow up [facility]
--- NOTE | 2017-03-15 09:17 | OP ---
PROCEDURE DATE: 02/20/2017 PREOPERATIVE DIAGNOSIS: End-stage renal disease. POSTOPERATIVE DIAGNOSIS: End-stage renal disease. PROCEDURE: Insertion of PermCath. SURGEON: Deb Dee MD COMPLICATIONS: None. INDICATIONS: Mr. Hoover is a 41-year-old male patient admitted with acute renal failure. The patient needs dialysis catheter. He has chronic renal insufficiency, progressed to acute , so he was brought for insertion of the catheter. DESCRIPTION OF PROCEDURE: The patient was brought to the operating room and placed in supine position. He was prepped and draped in usual sterile fashion. Sedation was then performed. A ultrasound-guided access of the right IJ was done using micropuncture needle. Wire inserted over the needle, micropuncture sheath over the wire, and micropuncture sheath. Under fluoroscopy, catheter was inserted over the wire and the sheath and the sheath was peeled off from the catheter and . We injected lidocaine to infiltrate the right side of the upper chest at the clavicle area to the right side of the neck. We made a small subclavicular incision and we made a tunnel between the two incisions. The right subclavicular incision and . We pulled the catheter through the tunnel down to the infraclavicular area and checked it under fluoroscopy to ensure there was no kinking. We irrigated several times with sterile saline with good flow. We cut the end of the catheter and we hooked it to the device and irrigated with heparin and saline. We the catheter with heparin and . We fixed the with nylon 3-0 and 4-0 Monocryl subcutaneously. The patient tolerated the procedure well and sent to recovery room in . No complication at the end of procedure. Deb Dee MD
--- NOTE | 2017-03-16 07:54 | CARDCATH ---
The patient is a 41-year-old male who has history of diabetes mellitus, who was admitted because of congestive heart failure and advanced renal insufficiency. The patient was just started on hemodialysis. A non-ST elevation myocardial infarction was ruled in and cardiac catheterization was recommended. The procedure and risks were fully explained to the patient who understood them and agreed for the procedure. PROCEDURES: Left heart cholangiography which was performed with 6-inch JL4 and JR4 diagnostic catheter. Left ventriculogram which was performed with a 6-inch pigtail catheter. The patient tolerated the procedure well without any complications. ANGIOGRAPHY FINDINGS: Selective injection of the left coronary artery revealed left main to be a normal vessel. Left main bifurcated into a medium size LAD and medium size circumflex artery. The LAD was totally occluded as was the first diagonal branch and there was 90% critical proximal stenosis of the first diagonal branch and there was 90% stenosis of the mid as well as the distal circumflex artery with critical stenosis of the second obtuse marginal branch. Selective injection of the right coronary artery revealed a medium size dominant vessel. The RCA had 70% stenosis of the PLV branch and 90% stenosis of the proximal portion of the posterior descending branch of the right coronary artery. Retrograde filling of the distal LAD was noted from the right coronary circulation. Left ventriculogram performed in the CHOUDHARY projection revealed severely hypokinetic apex and anterior wall. Ejection fraction was maintained at 30%. ASSESSMENT: Ischemic cardiomyopathy with significant 3-vessel coronary artery disease. RECOMMENDATIONS: The case will be discussed with cardiothoracic surgeon, Dr. Montanez for possible coronary artery bypass surgery. Anton Aviles MD BERNADETTE
== END 2017-02-23 20:30 | disposition designated cancer center or children's hospital (05) | DRG 121 ==
LOC: C.ER 17:24 → C.9E 20:58 → C.6T 22:22
PROVIDERS: ADMIT Internal Medicine; ATTEND Internal Medicine
PROC: 05HM33Z Insertion of Infusion Device into Right Internal Jugular Vein, Percutaneous Approach (ICD-10-PCS; principal; 2017-02-20 11:00)
PROC: 4A023N7 Measurement of Cardiac Sampling and Pressure, Left Heart, Percutaneous Approach (ICD-10-PCS; 2017-02-23)
PROC: B201YZZ Plain Radiography of Multiple Coronary Arteries using Other Contrast (ICD-10-PCS; 2017-02-23)
PROC: B205YZZ Plain Radiography of Left Heart using Other Contrast (ICD-10-PCS; 2017-02-23)
DX: I13.2 Hypertensive heart and chronic kidney disease with heart failure and with stage 5 chronic kidney disease, or end stage renal disease (principal); I21.4 Non-ST elevation (NSTEMI) myocardial infarction; J18.9 Pneumonia, unspecified organism; N17.9 Acute kidney failure, unspecified; N18.6 End stage renal disease; I42.9 Cardiomyopathy, unspecified; E11.21 Type 2 diabetes mellitus with diabetic nephropathy; E87.6 Hypokalemia; E11.22 Type 2 diabetes mellitus with diabetic chronic kidney disease; I50.9 Heart failure, unspecified; J98.11 Atelectasis; F17.210 Nicotine dependence, cigarettes, uncomplicated; Z83.3 Family history of diabetes mellitus; I25.2 Old myocardial infarction; I25.10 Atherosclerotic heart disease of native coronary artery without angina pectoris; Z79.4 Long term (current) use of insulin; Z79.82 Long term (current) use of aspirin